=== PATIENT | female | born 1970 | race Caucasian/White ===

== ENCOUNTER 2019-01-09 17:34 | Emergency (ER) | payer OTHER ==
[2019-01-09 17:47] VITALS: BP 152/101; PULSE 79; RESP 20; TEMP 97.5
[2019-01-09] MEDS ORDERED: KETOROLAC 30 MG/ML 1 ML VIAL IM STA (18:12)
[2019-01-09] MEDS ORDERED: SULFAMETH-TMP DS STARTER PACK 2 TAB BTL PO STA (18:12)
[2019-01-09] MEDS ORDERED: LIDOCAINE 1% INJ 10MG/ML (20 ML MDV) SQ ONE (18:12)
--- NOTE | 2019-01-09 18:15 | ED ---
General Adult HPI - General Chief complaint: Skin/Abscess/Foreign Body Stated complaint: possible MRSA Time Seen by Provider: 01/09/19 18:07 Source: patient, RN notes reviewed Mode of arrival: ambulatory Limitations: no limitations - History of Present Illness Initial comments: 48-year-old female with a past medical history of MRSA presents to the emergency department for a chief complaint of swelling in the labia. Patient states that this has been ongoing for about a week. States that she is having swelling and pain in her right labia. Patient states that she has been taking Levaquin for about 4 days but it does not seem to be helping. Patient has not yet had this incised and drained. Denies fevers or chills.Patient has no other complaints at this time including shortness of breath, chest pain, abdominal pain, nausea or vomiting, headache, or visual changes. - Related Data Previous Rx's Medication Instructions Recorded Loratadine [Claritin] 10 mg PO DAILY PRN #15 tab 04/30/14 clonazePAM [KlonoPIN] 1 mg PO TID #45 tab 04/30/14 Acetaminophen with Codeine 1 each PO Q4H #20 tab 04/12/15 [Tylenol w/codeine #3] Ibuprofen [Motrin] 800 mg PO Q6HR PRN #20 tab 04/12/15 Cephalexin [Keflex] 500 mg PO Q6H #40 cap 01/09/19 Sulfamethox-Tmp 800-160Mg [Bactrim 1 tab PO Q12HR #20 tab 01/09/19 DS 800-160 mg] Allergies Allergy/AdvReac Type Severity Reaction Status Date / Time No Known Allergies Allergy Verified 01/09/19 17:46 Review of Systems ROS Statement: Those systems with pertinent positive or pertinent negative responses have been documented in the HPI. ROS Other: All systems not noted in ROS Statement are negative. Past Medical History Additional Past Medical History / Comment(s): "I don't know" History of Any Multi-Drug Resistant Organisms: MRSA Date of last positivie culture/infection: 2011 MDRO Source:: under her arm Past Surgical History: Section Additional Past Surgical History / Comment(s): x2 Past Anesthesia/Blood Transfusion Reactions: No Reported Reaction Past Psychological History: Anxiety, Bipolar, Depression, Schizoaffective Disorder Smoking Status: Current every day smoker Past Alcohol Use History: Occasional Past Drug Use History: None Reported General Exam Limitations: no limitations General appearance: alert, in no apparent distress Head exam: Present: atraumatic, normocephalic, normal inspection Eye exam: Present: normal appearance, PERRL, EOMI. Absent: scleral icterus, conjunctival injection, periorbital swelling ENT exam: Present: normal exam, mucous membranes moist Neck exam: Present: normal inspection, full ROM. Absent: tenderness, meningismus, lymphadenopathy Respiratory exam: Present: normal lung sounds bilaterally. Absent: respiratory distress, wheezes, rales, rhonchi, stridor Cardiovascular Exam: Present: regular rate, normal rhythm, normal heart sounds. Absent: systolic murmur, diastolic murmur, rubs, gallop, clicks External exam: Present: erythema (Right labia), swelling (Mild Right labia, serosanginous fluid expelled). Absent: normal external exam, lesions, lacerations Neurological exam: Present: alert Course Vital Signs 01/09/19 17:44 Temperature 97.5 F L Pulse Rate 79 Respiratory 20 Rate Blood Pressure 152/101 O2 Sat by Pulse 99 Oximetry Procedures - Incision & Drainage Consent Obtained: verbal consent Site: vulva/vagina Size (cm): 1 Anesthetic Used: lidocaine 1% Medical Decision Making - Medical Decision Making Right labia is erythematous and edematous. There is induration noted. There are small drainage points that expel yellow serosanguineous fluid. Dr. Jean also examined the patient. I did attempt a very small incision and drainage and did not receive any purulent material. Patient is currently on Levaquin and has a history of MRSA. This will be changed to Bactrim and Keflex. I did also do a viral swab for HSV. These are pending. Patient has seen her doctor about this and will follow up with them. However if she has worsening symptoms or fever she will return. Discussed following up on culture results as well. Disposition Clinical Impression: Labial abscess Disposition: HOME SELF-CARE Condition: Good Instructions (If sedation given, give patient instructions): Abscess (ED) Additional Instructions: Please take Bactrim and Keflex as directed. Discontinue Levaquin. Follow up on culture results. Please see your doctor in the next 1-2 days. If you are having worsening symptoms or develop fevers return to the emergency department. Prescriptions: Sulfamethox-Tmp 800-160Mg [Bactrim DS 800-160 mg] 1 tab PO Q12HR #20 tab Cephalexin [Keflex] 500 mg PO Q6H #40 cap Is patient prescribed a controlled substance at d/c from ED?: No Referrals: Omega Saavedra MD [Primary Care Provider] - 1-2 days Time of Disposition: 19:17
== END 2019-01-09 19:39 | disposition home or self-care (01) ==
LOC: EC 17:34
DX: N76.4 Abscess of vulva (principal); F17.200 Nicotine dependence, unspecified, uncomplicated; Z98.890 Other specified postprocedural states; Z86.14 Personal history of Methicillin resistant Staphylococcus aureus infection
CPT/HCPCS: 87529; 87070; 87205; 96372; 99283; 56405; J2001; J1885; 87077; 87186

== ENCOUNTER 2019-03-13 11:01 | Emergency (ER) | payer OTHER ==
[2019-03-13 11:08] VITALS: BP 153/90; PULSE 89; RESP 20; TEMP 97.3
--- NOTE | 2019-03-13 11:42 | ED ---
General Adult HPI - General Chief complaint: Skin/Abscess/Foreign Body Stated complaint: Poss MRSA Time Seen by Provider: 03/13/19 11:05 Source: patient, RN notes reviewed, old records reviewed Mode of arrival: ambulatory Limitations: no limitations - History of Present Illness Initial comments: This is a 48 her old female who presents emergency Department with a past medical history significant of MRSA. Patient comes in complaining that there is a area above her right knee on the distal thigh that is red and mildly swollen and she says there is a little bit of pus coming from it. Patient states it only started day or 2 ago. Patient also states she has a very small bump under her right arm in the armpit area and she wonders if this is MRSA. Patient states that just started today. Patient denies any fever chills per patient denies any known injury to those areas. Patient states she did use someone else's razor recently. Patient has no other complaints at this time. - Related Data Previous Rx's Medication Instructions Recorded Loratadine [Claritin] 10 mg PO DAILY PRN #15 tab 04/30/14 clonazePAM [KlonoPIN] 1 mg PO TID #45 tab 04/30/14 Acetaminophen with Codeine 1 each PO Q4H #20 tab 04/12/15 [Tylenol w/codeine #3] Ibuprofen [Motrin] 800 mg PO Q6HR PRN #20 tab 04/12/15 Cephalexin [Keflex] 500 mg PO Q6H #40 cap 01/09/19 Sulfamethox-Tmp 800-160Mg [Bactrim 1 tab PO Q12HR #20 tab 01/09/19 DS 800-160 mg] Sulfamethox-Tmp 800-160Mg [Bactrim 1 each PO Q12HR #20 tab 03/13/19 DS 800-160 mg] Allergies Allergy/AdvReac Type Severity Reaction Status Date / Time No Known Allergies Allergy Verified 03/13/19 11:08 Review of Systems ROS Statement: Those systems with pertinent positive or pertinent negative responses have been documented in the HPI. ROS Other: All systems not noted in ROS Statement are negative. Past Medical History Additional Past Medical History / Comment(s): "I don't know" History of Any Multi-Drug Resistant Organisms: MRSA Date of last positivie culture/infection: 01/09/19 MDRO Source:: [place] Past Surgical History: Section Additional Past Surgical History / Comment(s): x2 Past Anesthesia/Blood Transfusion Reactions: No Reported Reaction Past Psychological History: Anxiety, Bipolar, Depression, Schizoaffective Disorder Smoking Status: Current every day smoker Past Alcohol Use History: Occasional Past Drug Use History: None Reported General Exam - General Exam Comments Initial Comments: GENERAL Patient is well-developed and well-nourished. Patient is in mild distress. EYES Patient's pupils are equal and round. Extraocular motion is intact SKIN Unremarkable NEURO The patient is alert and oriented 3 PYSCH Patient has normal interpersonal interactions. MUSCULOSKELETAL patient has a abscess just above the right knee and distal thigh area there is some erythema measuring about 2 cm in diameter with a central opening which a little pus is draining from. Patient's right arm. Has a very small bump in the armpit that is tender is only mildly red does not appear fluctuant at all. Limitations: no limitations Course Vital Signs 03/13/19 11:06 Temperature 97.3 F L Pulse Rate 89 Respiratory 20 Rate Blood Pressure 153/90 O2 Sat by Pulse 100 Oximetry Procedures - Incision & Drainage Site: lower extremity Anesthetic Used: lidocaine 1% I&D Cleaning Method: Betadine Sterile Field Used?: Yes Scalpel Used: #11 Needle Aspiration Performed?: No Irrigation Performed?: No I&D Drainage Obtained: Pus Culture Obtained?: Yes Complications: pain Patient Tolerated Procedure: well Disposition Clinical Impression: Abscess of right leg Disposition: HOME SELF-CARE Condition: Good Instructions (If sedation given, give patient instructions): Abscess Incision and Drainage (ED), MRSA (Methicillin-Resistant Staphylococcus Aureus) (ED) Prescriptions: Sulfamethox-Tmp 800-160Mg [Bactrim DS 800-160 mg] 1 each PO Q12HR #20 tab Is patient prescribed a controlled substance at d/c from ED?: No Referrals: Dayday Saavedra MD [Primary Care Provider] - 1-2 days Time of Disposition: 11:42
== END 2019-03-13 12:00 | disposition home or self-care (01) ==
LOC: EC 11:01
DX: L02.415 Cutaneous abscess of right lower limb (principal); F17.200 Nicotine dependence, unspecified, uncomplicated
CPT/HCPCS: 10060; 87070; 87077; 87186; 87205; 99284

== ENCOUNTER 2019-03-17 12:21 | Emergency (ER) | payer OTHER ==
[2019-03-17 12:38] VITALS: TEMP 98.1
[2019-03-17] MEDS ORDERED: LIDOCAINE 1% INJ 10MG/ML (20 ML MDV) SQ ONE (13:21)
[2019-03-17] MEDS ORDERED: CLINDAMYCIN 600 MG in DEXTROSE 5% IN WATER 50 ML IVPB STA ×2 (13:29)
[2019-03-17 14:19] LABS: Basophils % (A) 1 %; Eosinophils % (A) 1 %; HGB 13.2 gm/dL (11.4-16.0); Lymphocytes # (A) 0.6 k/uL (1.0-4.8); Lymphocytes % (A) 17 %; MCH 27.8 pg (25.0-35.0); MCV 84.4 fL (80.0-100.0); Mean Platelet Volume 6.9; Monocytes # (A) 0.1 k/uL (0-1.0); Monocytes % (A) 2 %; Neutrophils # (A) 2.9 k/uL (1.3-7.7); Neutrophils % (A) 78 %; Platelet Count 306 k/uL (150-450); RBC 4.74 m/uL (3.80-5.40); RDW 13.8 % (11.5-15.5); WBC 3.7 k/uL (3.8-10.6)
[2019-03-17 14:26] LABS: ALT 28 U/L (4-34); AST 37 U/L (14-36); African American GFR (CKD) >90 (>60 ml/min/1.73 sqM); Albumin 4.7 g/dL (3.5-5.0); Alkaline Phosphatase 87 U/L (38-126); Anion Gap 10 mmol/L; Blood Urea Nitrogen 8 mg/dL (7-17); Calcium 9.9 mg/dL (8.4-10.2); Carbon Dioxide 24 mmol/L (22-30); Chloride 102 mmol/L (98-107); Glucose 122 mg/dL (74-99); Non-African American GFR(CKD) 86 (>60 ml/min/1.73 sqM); Potassium 4.4 mmol/L (3.5-5.1); Sodium 136 mmol/L (137-145); Total Bilirubin 0.3 mg/dL (0.2-1.3); Total Protein 7.9 g/dL (6.3-8.2)
[2019-03-17] MEDS ORDERED: MORPHINE SULFATE 4 MG/ML SYRINGE IVP PRN (14:34)
--- NOTE | 2019-03-17 14:58 | ED ---
Skin/Abscess/FB HPI - General Chief complaint: Skin/Abscess/Foreign Body Stated complaint: MRSA Time Seen by Provider: 03/17/19 13:03 Source: patient Mode of arrival: ambulatory Limitations: no limitations - History of Present Illness Initial comments: 48yo female presenting today for chief complaint of MRSA infection. Patient states she had a small red area on her right anterior knee that began approximately 7 days ago. She states she presented 4 days ago was started on Bactrim. Patient states at that time she had the area of her knee drained with a small amount of pus. She states she also had a small tender area that felt like a nodule in the right axilla. Patient denies any spontaneous drainage of the axilla redness. She states there is slightly increased redness surrounding the anterior knee lesion she denies any diffuse knee swelling or pain with range of motion at the right knee. She denies any fever or flulike symptoms. Patient denies any other complaints but was concerned that the redness was not going down. Patient states she has been taking her antibiotics as directed. Patient denies any other complaints upon arrival she appears well nontoxic - Related Data Home Medications Medication Instructions Recorded Confirmed HYDROcodone/APAP 5-325MG [[place] 1 tab PO TID PRN 03/17/19 03/17/19 5-325] Lacosamide [Vimpat] 200 mg PO BID 03/17/19 03/17/19 Sulfamethox-Tmp 800-160Mg [Bactrim 1 tab PO Q12H 03/17/19 03/17/19 DS 800-160 mg] Previous Rx's Medication Instructions Recorded Sulfamethox-Tmp 800-160Mg [Bactrim 2 tab PO Q12HR 10 Days #40 tab 03/17/19 DS 800-160 mg] Allergies Allergy/AdvReac Type Severity Reaction Status Date / Time No Known Allergies Allergy Verified 03/17/19 14:32 Review of Systems ROS Statement: Those systems with pertinent positive or pertinent negative responses have been documented in the HPI. ROS Other: All systems not noted in ROS Statement are negative. Past Medical History Additional Past Medical History / Comment(s): "I don't know" History of Any Multi-Drug Resistant Organisms: MRSA Date of last positivie culture/infection: 01/09/19 MDRO Source:: [place] Past Surgical History: Section, Joint Replacement Additional Past Surgical History / Comment(s): x2 Past Anesthesia/Blood Transfusion Reactions: No Reported Reaction Past Psychological History: Anxiety, Bipolar, Depression, Schizoaffective Disorder Smoking Status: Current every day smoker Past Alcohol Use History: Occasional Past Drug Use History: None Reported General Exam - General Exam Comments Initial Comments: General: The patient is awake and alert, in no distress, and does not appear acutely ill. Eye: Pupils are equal, round and reactive to light, extra-ocular movements are intact. No nystagmus. There is normal conjunctiva bilaterally. No signs of icterus. Cardiovascular: There is a regular rate and rhythm. No murmur, rub or gallop is appreciated. Respiratory: Lungs are clear to auscultation, respirations are non-labored, breath sounds are equal. No wheezes, stridor, rales, or rhonchi. Musculoskeletal: Normal ROM, no tenderness. Strength 5/5. Sensation intact. Pulses equal bilaterally 2+. Neurological: A&O x 3. CN II-XII intact, There are no obvious motor or sensory deficits. Coordination appears grossly intact. Speech is normal. Skin: Skin is warm and dry and no rashes.3cm x3cm circular area of erythema well demarcated, indurated, no spontaneous drainage. This is distal aspect of the anterior right thigh, just superior to knee joint. THere was a very small 1cmx1/2cm lesiosn in the right axilla that was fluctuant with no significant erythema. Psychiatric: Cooperative, appropriate mood & affect, normal judgment. Limitations: no limitations Course Vital Signs 03/17/19 03/17/19 03/17/19 12:35 13:38 14:00 Temperature 98.1 F Pulse Rate 102 H 93 78 Respiratory 18 20 Rate Blood Pressure 128/77 129/87 O2 Sat by Pulse 99 95 100 Oximetry 03/17/19 15:00 Temperature Pulse Rate 82 Respiratory 20 Rate Blood Pressure 125/80 O2 Sat by Pulse 100 Oximetry Procedures - Incision & Drainage Consent Obtained: verbal consent Indication: abscess Site: lower extremity (distal right thigh/just superior to knee ) Size (cm): 3 Anesthetic Used: lidocaine 1% Amount (mLs): 2 I&D Cleaning Method: Iodine Sterile Field Used?: No Scalpel Used: #11 Needle Aspiration Performed?: Yes (no pus) Irrigation Performed?: No I&D Drainage Obtained: Blood Culture Obtained?: No Patient Tolerated Procedure: well, no complications Medical Decision Making - Medical Decision Making 48yo female presenting today for chief complaint of no improvement of infection. Patient states she has slight increase in the redness surrounding the right knee lesion she states she was not told that this was MRSA. Patient states she is on Bactrim. Patient's previous cultures revealed methicillin-resistant staph aureus. However is found to be sensitive to Bactrim. Patient was provided IV clindamycin in the emergency department. Laboratory studies revealed a leukocytosis patient appears well nontoxic she is afebrile with no flulike symptoms. I attempted needle aspiration of the right anterior leg lesions, no purulent drainage, mostly induration. Dr. Hull who evaluated patient on 03/13 reevaluated patient there was minimal progression. Patient has needle aspiration with I&D performed on right axilla lesion with minimal expression however was present purulent drainage. At this time after discussing case with attending he recommends doubling the dose of Bactrim and having patient follow up with prim abraham Provider with strict return parameters. I discussed outline the area of redness for monitoring monitoring for fevers as well as flulike symptoms patient verbalizes understanding and was discharged appearing well - Lab Data Result diagrams: 03/17/19 14:00 03/17/19 14:00 Lab Results 03/17/19 03/17/19 Range/Units 14:00 14:00 WBC 3.7 L (3.8-10.6) k/uL RBC 4.74 (3.80-5.40) m/uL Hgb 13.2 (11.4-16.0) gm/dL Hct 40.0 (34.0-46.0) % MCV 84.4 (80.0-100.0) fL MCH 27.8 (25.0-35.0) pg MCHC 33.0 (31.0-37.0) g/dL RDW 13.8 (11.5-15.5) % Plt Count 306 (150-450) k/uL Neutrophils % 78 % Lymphocytes % 17 % Monocytes % 2 % Eosinophils % 1 % Basophils % 1 % Neutrophils # 2.9 (1.3-7.7) k/uL Lymphocytes # 0.6 L (1.0-4.8) k/uL Monocytes # 0.1 (0-1.0) k/uL Eosinophils # 0.0 (0-0.7) k/uL Basophils # 0.0 (0-0.2) k/uL Sodium 136 L (137-145) mmol/L Potassium 4.4 (3.5-5.1) mmol/L Chloride 102 (98-107) mmol/L Carbon Dioxide 24 (22-30) mmol/L Anion Gap 10 mmol/L BUN 8 (7-17) mg/dL Creatinine 0.82 (0.52-1.04) mg/dL Est GFR (CKD-EPI)AfAm >90 (>60 ml/min/1.73 sqM) Est GFR (CKD-EPI)NonAf 86 (>60 ml/min/1.73 sqM) Glucose 122 H (74-99) mg/dL Calcium 9.9 (8.4-10.2) mg/dL Total Bilirubin 0.3 (0.2-1.3) mg/dL AST 37 H (14-36) U/L ALT 28 (4-34) U/L Alkaline Phosphatase 87 (38-126) U/L Total Protein 7.9 (6.3-8.2) g/dL Albumin 4.7 (3.5-5.0) g/dL Disposition Clinical Impression: MRSA (methicillin resistant staph aureus) culture positive, Cellulitis of right knee, Abscess of right axilla Disposition: HOME SELF-CARE Condition: Good Instructions (If sedation given, give patient instructions): MRSA (Methicillin- Resistant Staphylococcus Aureus) (ED), Abscess Incision and Drainage (ED) Additional Instructions: Please use medication as discussed. Please follow-up with family doctor in the next 2 days, monitor outlined area of redness daily, watch for fevers, flu like symptoms. DO not take previous infection. Please return to emergency room if the symptoms increase or worsen or for any other concerns. Prescriptions: Sulfamethox-Tmp 800-160Mg [Bactrim DS 800-160 mg] 2 tab PO Q12HR 10 Days #40 tab Is patient prescribed a controlled substance at d/c from ED?: No Referrals: Dayday Saavedra MD [Primary Care Provider] - 1-2 days Time of Disposition: 14:58
[2019-03-17 15:04] VITALS: BP 125/80; PULSE 82; RESP 20
== END 2019-03-17 15:11 | disposition home or self-care (01) ==
LOC: EC 12:21
DX: L03.115 Cellulitis of right lower limb (principal); L02.411 Cutaneous abscess of right axilla; Z22.322 Carrier or suspected carrier of Methicillin resistant Staphylococcus aureus; F17.200 Nicotine dependence, unspecified, uncomplicated; Z79.899 Other long term (current) drug therapy
CPT/HCPCS: 36415; 80053; 85025; 99283; 10160; 96365; 96375; J2270; J2001

== ENCOUNTER 2019-04-05 12:58 | Emergency (ER) | payer OTHER ==
[2019-04-05 13:18] VITALS: RESP 18
[2019-04-05] MEDS ORDERED: KETOROLAC 30 MG/ML 1 ML VIAL IVP STA (13:45)
--- NOTE | 2019-04-05 13:47 | ED ---
General Adult HPI - General Chief complaint: Back Pain/Injury Stated complaint: Back/side pain Time Seen by Provider: 04/05/19 13:30 Source: patient, RN notes reviewed, old records reviewed Limitations: no limitations - History of Present Illness Initial comments: [age]-year-old presenting with increased pain in her thoracic spine. She had recent procedure done by her neurologist which was performed in the office. Uncertain exactly what this procedure was but she has had increased pain and swelling at the site of the procedure as well as pain radiating to the front side of her abdomen. She denies fever or chills. She has been taking oxycodone with minimal relief. She denies any new injury. She's had some nausea and vomiting which she attributes to the severe pain. The procedure was performed 3 days prior. No periumbilical pain, no central chest pain. No pain or swelling to the lower legs. No numbness or paresthesias. - Related Data Home Medications Medication Instructions Recorded Confirmed HYDROcodone/APAP 5-325MG [[place] 1 tab PO TID PRN 03/17/19 03/17/19 5-325] Lacosamide [Vimpat] 200 mg PO BID 03/17/19 03/17/19 Sulfamethox-Tmp 800-160Mg [Bactrim 1 tab PO Q12H 03/17/19 03/17/19 DS 800-160 mg] Previous Rx's Medication Instructions Recorded Sulfamethox-Tmp 800-160Mg [Bactrim 2 tab PO Q12HR 10 Days #40 tab 03/17/19 DS 800-160 mg] Allergies Allergy/AdvReac Type Severity Reaction Status Date / Time No Known Allergies Allergy Verified 03/17/19 14:32 Review of Systems ROS Statement: Those systems with pertinent positive or pertinent negative responses have been documented in the HPI. ROS Other: All systems not noted in ROS Statement are negative. Past Medical History Additional Past Medical History / Comment(s): "I don't know" History of Any Multi-Drug Resistant Organisms: MRSA Date of last positivie culture/infection: 03/13/19 MDRO Source:: Left Leg Past Surgical History: Section, Joint Replacement Additional Past Surgical History / Comment(s): x2, back surgery. Past Anesthesia/Blood Transfusion Reactions: No Reported Reaction Past Psychological History: Anxiety, Bipolar, Depression, Schizoaffective Disorder Smoking Status: Current every day smoker Past Alcohol Use History: Occasional Past Drug Use History: None Reported General Exam Limitations: no limitations General appearance: alert, in no apparent distress Head exam: Present: atraumatic, normocephalic Eye exam: Present: normal appearance, PERRL Neck exam: Present: normal inspection. Absent: tenderness, meningismus Respiratory exam: Present: normal lung sounds bilaterally. Absent: respiratory distress, wheezes Cardiovascular Exam: Present: regular rate, normal rhythm GI/Abdominal exam: Present: soft. Absent: distended, tenderness, guarding, rebound Extremities exam: Present: normal inspection, normal capillary refill. Absent: pedal edema, calf tenderness Back exam: Present: vertebral tenderness (Patient has multiple puncture sites in the thoracic spinal region, minimal erythema, no induration, no fluctuance) Psychiatric exam: Present: normal affect, normal mood Skin exam: Present: warm, dry. Absent: cyanosis, diaphoretic Course Vital Signs 04/05/19 13:15 Temperature 98.2 F Pulse Rate 93 Respiratory 18 Rate Blood Pressure 146/99 O2 Sat by Pulse 100 Oximetry Medical Decision Making - Medical Decision Making 48 yo female presenting with back pain status post arthroplasty of the thoracic spine which was performed by her neurologist 3 days prior to evaluation. She has puncture sites in the mid thoracic spine with no external signs of infection. She has a normal CBC, normal CMP, negative CRP. CT was performed negative for abscess, does show postprocedural changes. This was reviewed with radiologist. I also discussed case with who is the patient's neurologist who performed this procedure, believes that this is postoperative pain and is expected. She had been prescribed Toradol but had not filled this medication. She will have this medication filled and take this in addition to her Percocet as pre scribed. She will follow-up with her neurologist. - Lab Data Result diagrams: 04/05/19 14:00 04/05/19 14:00 Lab Results 04/05/19 04/05/19 04/05/19 Range/Units 14:00 14:00 14:00 WBC 7.1 (3.8-10.6) k/uL RBC 4.64 (3.80-5.40) m/uL Hgb 13.0 (11.4-16.0) gm/dL Hct 39.9 (34.0-46.0) % MCV 86.1 (80.0-100.0) fL MCH 28.0 (25.0-35.0) pg MCHC 32.5 (31.0-37.0) g/dL RDW 14.4 (11.5-15.5) % Plt Count 327 (150-450) k/uL Neutrophils % 62 % Lymphocytes % 28 % Monocytes % 6 % Eosinophils % 2 % Basophils % 0 % Neutrophils # 4.4 (1.3-7.7) k/uL Lymphocytes # 2.0 (1.0-4.8) k/uL Monocytes # 0.5 (0-1.0) k/uL Eosinophils # 0.1 (0-0.7) k/uL Basophils # 0.0 (0-0.2) k/uL Sodium 135 L (137-145) mmol/L Potassium 4.3 (3.5-5.1) mmol/L Chloride 101 (98-107) mmol/L Carbon Dioxide 27 (22-30) mmol/L Anion Gap 7 mmol/L BUN 9 (7-17) mg/dL Creatinine 0.63 (0.52-1.04) mg/dL Est GFR (CKD-EPI)AfAm >90 (>60 ml/min/1.73 sqM) Est GFR (CKD-EPI)NonAf >90 (>60 ml/min/1.73 sqM) Glucose 99 (74-99) mg/dL Plasma Lactic Acid Grzegorz 0.9 (0.7-2.0) mmol/L Calcium 9.6 (8.4-10.2) mg/dL Total Bilirubin 0.6 (0.2-1.3) mg/dL AST 28 (14-36) U/L ALT 22 (4-34) U/L Alkaline Phosphatase 58 (38-126) U/L C-Reactive Protein <5.0 (<10.0) mg/L Total Protein 7.4 (6.3-8.2) g/dL Albumin 4.5 (3.5-5.0) g/dL Disposition Clinical Impression: Back pain, History of kyphoplasty Disposition: HOME SELF-CARE Condition: Good Instructions (If sedation given, give patient instructions): Kyphoplasty (DC) Is patient prescribed a controlled substance at d/c from ED?: No Referrals: Dayday Saavedra MD [Primary Care Provider] - 1-2 days Mikki Oliva MD [Medical Doctor] - 1-2 days Time of Disposition: 15:16
[2019-04-05 14:24] LABS: Basophils % (A) 0 %; Eosinophils # (A) 0.1 k/uL (0-0.7); Eosinophils % (A) 2 %; HCT 39.9 % (34.0-46.0); Lymphocytes % (A) 28 %; MCHC 32.5 g/dL (31.0-37.0); MCV 86.1 fL (80.0-100.0); Mean Platelet Volume 6.8; Monocytes # (A) 0.5 k/uL (0-1.0); Monocytes % (A) 6 %; Neutrophils # (A) 4.4 k/uL (1.3-7.7); Neutrophils % (A) 62 %; Platelet Count 327 k/uL (150-450); RBC 4.64 m/uL (3.80-5.40); RDW 14.4 % (11.5-15.5); WBC 7.1 k/uL (3.8-10.6)
--- NOTE | 2019-04-05 14:39 | CT ---
EXAMINATION TYPE: CT thoracic spine wo con DATE OF EXAM: 04/05/2019 COMPARISON: None HISTORY: 48-year-old female increased back pain following thoracic surgery TECHNIQUE: Contiguous axial scanning of the thoracic spine without IV contrast. Coronal and sagittal reconstructions performed. CT DLP: 851 mGycm Automated exposure control for dose reduction was used. FINDINGS: There are vertebroplasty changes involving T8, T9, T10, T11, and T12 vertebral bodies. Anterior wedgi ng is present greatest of T9 and T11 vertebral bodies resulting in kyphotic deformity lower thoracic spine. Mild methylmethacrylate vessel embolization is present in the prevertebral regions opposite T9, T10, and T12. There is mild retropulsion at the T11 and T12 levels causing mild spinal canal stenosis here. On the left, changes of the abdomen moderate neuroforaminal narrowing at T10-T11 and mild at T11-T12 and T9-T10. On the right, changes result in moderate foraminal narrowing at T9-T10 and T10-T11, mild at T8-T9. No additional vertebral body fractures identified. Alignment is maintained. IMPRESSION: 1. VERTEBROPLASTY CHANGES FROM T8 THROUGH T12 LEVELS. ANTERIOR WEDGING OF T9 AND T11 RESULTS IN KYPHO SIS ALONG THE LOWER THORACIC SPINE. 2. MILD RETROPULSION AT THE T11 AND T12 LEVELS CAUSING MILD SPINAL CANAL STENOSES HERE. NO HIGH-GRADE CANAL COMPROMISE IS IDENTIFIED. 3. VARIABLE MILD AND MODERATE NEUROFORAMINAL STENOSES AT THE FRACTURED LEVELS ABOVE. 4. INCIDENTAL, MILD METHYLMETHACRYLATE VESSEL EMBOLIZATION TO THE PREVERTEBRAL REGIONS OPPOSITE T9, T 10, AND T12.
[2019-04-05 14:44] LABS: ALT 22 U/L (4-34); AST 28 U/L (14-36); African American GFR (CKD) >90 (>60 ml/min/1.73 sqM); Albumin 4.5 g/dL (3.5-5.0); Alkaline Phosphatase 58 U/L (38-126); Anion Gap 7 mmol/L; Blood Urea Nitrogen 9 mg/dL (7-17); C Reactive Protein <5.0 mg/L (<10.0); Calcium 9.6 mg/dL (8.4-10.2); Carbon Dioxide 27 mmol/L (22-30); Chloride 101 mmol/L (98-107); Glucose 99 mg/dL (74-99); Non-African American GFR(CKD) >90 (>60 ml/min/1.73 sqM); Potassium 4.3 mmol/L (3.5-5.1); Sodium 135 mmol/L (137-145); Total Bilirubin 0.6 mg/dL (0.2-1.3); Total Protein 7.4 g/dL (6.3-8.2)
[2019-04-05 15:33] VITALS: BP 132/74; PULSE 78; TEMP 98.3
== END 2019-04-05 15:30 | disposition home or self-care (01) ==
LOC: EC 12:58
DX: M54.6 Pain in thoracic spine (principal); G89.18 Other acute postprocedural pain; L76.82 Other postprocedural complications of skin and subcutaneous tissue; R11.2 Nausea with vomiting, unspecified; R10.9 Unspecified abdominal pain; F17.200 Nicotine dependence, unspecified, uncomplicated; Z86.14 Personal history of Methicillin resistant Staphylococcus aureus infection
CPT/HCPCS: 99284; 96374; 36415; 80053; 83605; 85025; 86140; 87040; 72128; J1885

== ENCOUNTER → 2019-04-10 | Outpatient (CLI) | payer OTHER ==
[2019-04-10 11:50] LABS: Basophils % (A) 1 %; Eosinophils # (A) 0.1 k/uL (0-0.7); Eosinophils % (A) 1 %; HCT 36.2 % (34.0-46.0); HGB 12.2 gm/dL (11.4-16.0); Lymphocytes # (A) 1.8 k/uL (1.0-4.8); Lymphocytes % (A) 31 %; MCH 29.9 pg (25.0-35.0); MCHC 33.7 g/dL (31.0-37.0); MCV 88.7 fL (80.0-100.0); Mean Platelet Volume 7.4; Monocytes # (A) 0.3 k/uL (0-1.0); Monocytes % (A) 4 %; Neutrophils # (A) 3.5 k/uL (1.3-7.7); Neutrophils % (A) 60 %; Platelet Count 257 k/uL (150-450); RBC 4.08 m/uL (3.80-5.40); RDW 14.4 % (11.5-15.5); WBC 5.9 k/uL (3.8-10.6)
[2019-04-10 16:20] LABS: % Iron Saturation 12.39 (12.00-45.00); Calcium 9.2 mg/dL (8.7-10.3)
[2019-04-10 16:28] LABS: Ferritin 83.8 ng/mL (10.0-291.0); T4, Free (Free Thyroxine) 1.2 ng/dL (0.80-1.80)
[2019-04-10 16:59] LABS: Folate, Serum 12.8 ng/mL
[2019-04-12 10:12] LABS: Vit B1(Thiamine) 74 ug/L (38-122)
== END | disposition home or self-care (01) ==
LOC: LABWHC1 11:22
PROVIDERS: ATTEND Psychiatry & Neurology Pain Medicine
DX: R53.83 Other fatigue (principal)
CPT/HCPCS: 36415; 82306; 82310; 82607; 82668; 82728; 82746; 83540; 83550; 84207; 84425; 84439; 84443; 84466; 84481; 84591; 85025; 85045

== ENCOUNTER 2019-07-23 18:18 | Inpatient (IN) | payer MEDICAID, OTHER ==
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
--- NOTE | 2019-07-23 19:15 | XR ---
EXAMINATION TYPE: XR finger LT DATE OF EXAM: 07/23/2019 CLINICAL HISTORY: pain TECHNIQUE: 3 views of the first digit are submitted. COMPARISON: None FINDINGS: No displaced fracture is seen with certainty. Joint spaces are well-preserved. Correlate for soft tissue injury. IMPRESSION: No acute displaced fracture or dislocation.
[2019-07-23 20:38] LABS: Amphetamine Screen,Urine Not Detected (NotDetected); Barbiturate Screen,Urine Not Detected (NotDetected); Benzodiazepines Screen,Urine Not Detected (NotDetected); Cocaine Screen,Urine Not Detected (NotDetected); Methadone Screen, Urine Not Detected (NotDetected); Opiate Screen,Urine Not Detected (NotDetected); Oxycodone Screen, Urine Not Detected (NotDetected); Phencyclidine Screen,Urine Not Detected (NotDetected); Tricyclic Antidepressant,Urine Not Detected (NotDetected); Urn Cannabinoid Scrn Not Detected (NotDetected)
[2019-07-23] MEDS ORDERED: LORazepam 1 MG TAB PO STA (23:25)
[2019-07-24] MEDS ORDERED: MAGNESIUM HYDROXIDE 2,400 MG/10 ML CUP PO PRN (00:54)
[2019-07-24] MEDS ORDERED: MAG HYDROX/AL HYDROX/SIMETH 30 ML CUP PO PRN (00:54)
[2019-07-24] MEDS ORDERED: LORazepam 1 MG TAB PO PRN (00:54)
[2019-07-24 06:56] LABS: Basophils # (A) 0.1 k/uL (0-0.2); Basophils % (A) 1 %; Eosinophils # (A) 0.1 k/uL (0-0.7); Eosinophils % (A) 2 %; HCT 42.5 % (34.0-46.0); HGB 14.3 gm/dL (11.4-16.0); Lymphocytes # (A) 2.4 k/uL (1.0-4.8); Lymphocytes % (A) 37 %; MCHC 33.6 g/dL (31.0-37.0); MCV 92.5 fL (80.0-100.0); Mean Platelet Volume 7.6; Monocytes # (A) 0.4 k/uL (0-1.0); Monocytes % (A) 6 %; Neutrophils # (A) 3.3 k/uL (1.3-7.7); Neutrophils % (A) 51 %; Platelet Count 262 k/uL (150-450); RBC 4.59 m/uL (3.80-5.40); RDW 12.9 % (11.5-15.5); WBC 6.5 k/uL (3.8-10.6)
[2019-07-24 07:04] LABS: ALT 13 U/L (4-34); AST 18 U/L (14-36); African American GFR (CKD) >90 (>60 ml/min/1.73 sqM); Alkaline Phosphatase 67 U/L (38-126); Anion Gap 5 mmol/L; Blood Urea Nitrogen 10 mg/dL (7-17); Calcium 9.5 mg/dL (8.4-10.2); Carbon Dioxide 25 mmol/L (22-30); Chloride 107 mmol/L (98-107); Cholesterol 234 mg/dL (<200); Glucose 94 mg/dL (74-99); HDL Cholesterol 46 mg/dL (40-60); Non-African American GFR(CKD) >90 (>60 ml/min/1.73 sqM); Sodium 137 mmol/L (137-145); Total Bilirubin 0.8 mg/dL (0.2-1.3); Total Protein 6.6 g/dL (6.3-8.2)
[2019-07-24 07:09] LABS: LDL Cholesterol,Calculated 170 mg/dL (0-99); Triglycerides 90 mg/dL (<150)
--- NOTE | 2019-07-24 12:25 | P.HP ---
Psychiatric H&P - . H&P Date: 07/24/19 History & Physical: Allergies Allergy/AdvReac Type Severity Reaction Status Date / Time No Known Allergies Allergy Verified 07/23/19 20:44 Vital Signs Temp 97.4 F L 07/24/19 01:27 Pulse 97 07/24/19 01:27 Resp 16 07/24/19 01:27 BP 127/116 07/24/19 01:27 Pulse Ox 97 07/23/19 18:21 Intake & Output 07/23/19 07/24/19 07/24/19 18:59 06:59 18:59 Weight 65.771 kg Laboratory Last Values WBC 6.5 k/uL (3.8-10.6) 07/24/19 06:36 RBC 4.59 m/uL (3.80-5.40) 07/24/19 06:36 Hgb 14.3 gm/dL (11.4-16.0) 07/24/19 06:36 Hct 42.5 % (34.0-46.0) 07/24/19 06:36 MCV 92.5 fL (80.0-100.0) 07/24/19 06:36 MCH 31.0 pg (25.0-35.0) 07/24/19 06:36 MCHC 33.6 g/dL (31.0-37.0) 07/24/19 06:36 RDW 12.9 % (11.5-15.5) 07/24/19 06:36 Plt Count 262 k/uL (150-450) 07/24/19 06:36 Neutrophils % 51 % 07/24/19 06:36 Lymphocytes % 37 % 07/24/19 06:36 Monocytes % 6 % 07/24/19 06:36 Eosinophils % 2 % 07/24/19 06:36 Basophils % 1 % 07/24/19 06:36 Neutrophils # 3.3 k/uL (1.3-7.7) 07/24/19 06:36 Lymphocytes # 2.4 k/uL (1.0-4.8) 07/24/19 06:36 Monocytes # 0.4 k/uL (0-1.0) 07/24/19 06:36 Eosinophils # 0.1 k/uL (0-0.7) 07/24/19 06:36 Basophils # 0.1 k/uL (0-0.2) 07/24/19 06:36 Sodium 137 mmol/L (137-145) 07/24/19 06:36 Potassium 4.0 mmol/L (3.5-5.1) 07/24/19 06:36 Chloride 107 mmol/L (98-107) 07/24/19 06:36 Carbon Dioxide 25 mmol/L (22-30) 07/24/19 06:36 Anion Gap 5 mmol/L 07/24/19 06:36 BUN 10 mg/dL (7-17) 07/24/19 06:36 Creatinine 0.70 mg/dL (0.52-1.04) 07/24/19 06:36 Est GFR (CKD-EPI)AfAm >90 (>60 ml/min/1.73 sqM) 07/24/19 06:36 Est GFR (CKD-EPI)NonAf >90 (>60 ml/min/1.73 sqM) 07/24/19 06:36 Glucose 94 mg/dL (74-99) 07/24/19 06:36 Calcium 9.5 mg/dL (8.4-10.2) 07/24/19 06:36 Total Bilirubin 0.8 mg/dL (0.2-1.3) 07/24/19 06:36 AST 18 U/L (14-36) 07/24/19 06:36 ALT 13 U/L (4-34) 07/24/19 06:36 Alkaline Phosphatase 67 U/L (38-126) 07/24/19 06:36 Total Protein 6.6 g/dL (6.3-8.2) 07/24/19 06:36 Albumin 4.0 g/dL (3.5-5.0) 07/24/19 06:36 Triglycerides 90 mg/dL (<150) 07/24/19 06:36 Cholesterol 234 mg/dL (<200) H 07/24/19 06:36 LDL Cholesterol, Calc 170 mg/dL (0-99) H 07/24/19 06:36 HDL Cholesterol 46 mg/dL (40-60) 07/24/19 06:36 TSH 1.060 mIU/L (0.465-4.680) 07/24/19 06:36 Urine Opiates Screen Not Detected (NotDetected) 07/23/19 20:18 Ur Oxycodone Screen Not Detected (NotDetected) 07/23/19 20:18 Urine Methadone Screen Not Detected (NotDetected) 07/23/19 20:18 Ur Propoxyphene Screen Not Detected (NotDetected) 07/23/19 20:18 Ur Barbiturates Screen Not Detected (NotDetected) 07/23/19 20:18 U Tricyclic Antidepress Not Detected (NotDetected) 07/23/19 20:18 Ur Phencyclidine Scrn Not Detected (NotDetected) 07/23/19 20:18 Ur Amphetamines Screen Not Detected (NotDetected) 07/23/19 20:18 U Methamphetamines Scrn Not Detected (NotDetected) 07/23/19 20:18 U Benzodiazepines Scrn Not Detected (NotDetected) 07/23/19 20:18 Urine Cocaine Screen Not Detected (NotDetected) 07/23/19 20:18 U Marijuana (THC) Screen Not Detected (NotDetected) 07/23/19 20:18 07/24/19 10:40 IDENTIFYING DATA: Patient is a 48-year-old female who is and lives with her father and has 2 boys. HPI: Patient presented to the hospital and was evaluated in the ER. Patient was brought in by father who petitioned her stating "loss of memory acting and laughing for no reason" and also "stares at the son". The petition also states that patient "walks up to the TV and stares" and also has been refusing to take her medications. As per ER report patient admitted to noncompliance with her meds and also appeared to be talking to someone in the room when nobody was there and spoke about "the devil is in her head and telling her to harm herself" and appeared to be distracted during the interview in the ER. Patient's UDS was negative. Patient was seen laying down in her bed today and was initially bizarre and appeared to be confused and resistant to speak with scenario writer and needed significant direction. Patient did appear to be confused and was a poor historian. She claims that she has been not taking her medications and perseverated on this several times are at the interview. She complained of a headache. She followed some commands and had difficulty concentrating during the interview. She was slow to respond and was vague with poor insight. She states that she slept poorly and when asked about her mood she states it is "lonely". Patient denies any suicidal or homicidal ideations intent or plan. At this time patient denies any auditory or visual hallucinations. Patient admits to using cigarettes daily. UDS was negative. PAST PSYCHIATRIC HISTORY: Patient states that she has a history of schizoaffective disorder her last admission to the mental health unit was in 2014. Patient was previously on Rexulti, Effexor, BuSpar, Klonopin and Vistaril. PMH: Seizure disorder and asthma ALLERGIES: as per EMR CHEMICAL DEPENDENCY HISTORY: as per HPI FAMILY PSYCHIATRIC/SUBSTANCE USE HISTORY: denies SOCIAL HISTORY: Patient was born and raised in [place] and moved to [place]. She currently lives with her father is divorce has to boys. 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 She states that she did some college. She denied any legal problems at this time. MENTAL STATUS EXAM: General Appearance: Patient appears to be stated age is alert, confused and bizarre. Difficult to redirect at times. Patient appears to have poor hygiene and grooming. Behavior: Patient is seated without any agitated behavior. Bizarre and confused. Speech: Patient's speech is fluent and nonpressured. Slow to respond. Mood/Affect: Patient reports their mood is "lonely", affect is congruent and constricted. Suicidality/Homicidality: Patient denies having any homicidal ideation intent or plan. Denies any suicidal ideations intent or plan Perceptions: Patient denies any visual hallucinations and denies any auditory hallucinations Though content/process: Poverty of content, vague. Does not endorse any paranoia or delusions. Preoccupied with not taking her medications. Memory and concentration: AOX2, does not know today's date, poor memory recall, poor fund of knowledge and poor abstraction. Cannot spell "WORLD" backwards Judgment and insight: poor STRENGTHS/WEAKNESSES: strength is that patient is resilient. Weakness is that patient has poor judgment INTELLECT: average IMPRESSIONS: Psychosis unspecified, rule out secondary to a general medical condition versus schizoaffective disorder Nicotine dependence PLAN: -Patient is admitted under involuntary status to MHU for stabilization of psychiatric symptoms and safety. A second certification was completed and along with petition will be filed for court. Patient refused to sign medication consent form and was placed in chart. -Medications : Will start patient on paliperidone by mouth 3 mg daily for psychosis. Due to patient's noncompliance and poor insight, we'll likely transition patient on 2 Invega Sustenna prior to discharge. Trazodone 25 mg daily at bedtime for insomnia/mood. -Ordered computed tomography scan of the brain due to acute psychosis and confusion/altered mental status. -Will check B12, folate and syphilis labs. -Ativan and Geodon PRN for agitation/aggression -Patient was informed of the risks, benefits and side effects of the medication and patient verbally consented to taking the medications. Patient signed med consent form and was placed in chart. -Internal Medicine consult to perform medical evaluation and physical. Will evaluate to see if patient needs to be restarted on her antiepileptic medications and also if a neurology consult to is warranted. -NRT - nicotine patch -SW on board for discharge planning. Encourage patient to participate in groups to work on coping skills. We'll file for court and await deferral and court date. 07/24/19 12:16 07/24/19 12:22
[2019-07-24] MEDS: NICOTINE 14MG/24HR PATCH TRANSDERM SCH (12:35)
[2019-07-24] MEDS: PALIPERIDONE 3 MG TAB.ER.24 PO SCH (12:37)
[2019-07-24 14:19] LABS: Hemoglobin A1C 5.4 % (4.0-6.0)
[2019-07-24] MEDS ORDERED: OLANZapine 5 MG TAB PO ONE (14:30)
--- NOTE | 2019-07-24 16:06 | CT ---
EXAMINATION TYPE: CT brain wo/w con DATE OF EXAM: 07/24/2019 COMPARISON: 01/26/2012 HISTORY: altered mental status CT DLP: 2100.4mGycm CONTRAST: CT scan of the head is performed without and with IV Contrast, patient injected with 100 mL of Isovue 300. Unenhanced followed by contrast enhanced CT of the brain is submitted for evaluation. The ventricles are midline. There is no evidence for intracranial hemorrhage or extra-axial collection. No mass e ffects are identified. Visualized bony calvarium is intact. Contrast is administered and no enhanci ng lesions are detected. No pathologic enhancement is identified. If symptoms persist consider MRI. IMPRESSION: No significant abnormality appreciated at this time.
[2019-07-24 17:42] LABS: Folate, Serum 19.7 ng/mL
[2019-07-24] MEDS: traZODone HCL 50 MG TAB PO SCH (22:24)
--- NOTE | 2019-07-24 23:28 | P.HPIM ---
History of Present Illness H&P Date: 07/24/19 Chief Complaint: Psychotic features Consultation: Admitted to see the patient earlier today. Came back later to see the patient. Patient received a sedative. Unable to answer questions. Lethargic-arousable, but doses off easily. Chart was reviewed. We'll return tomorrow for formal evaluation again. Past Medical History Past Medical History: Unable to Obtain Additional Past Medical History / Comment(s): "I don't know" History of Any Multi-Drug Resistant Organisms: MRSA Date of last positivie culture/infection: 03/13/19 MDRO Source:: Left Leg Past Surgical History: Unable to Obtain, Section, Joint Replacement Additional Past Surgical History / Comment(s): x2, back surgery. Past Anesthesia/Blood Transfusion Reactions: No Reported Reaction Past Psychological History: Anxiety, Bipolar, Depression, Schizoaffective Disorder Smoking Status: Current every day smoker Past Alcohol Use History: Occasional Past Drug Use History: None Reported Medications and Allergies Home Medications Medication Instructions Recorded Confirmed Type Lacosamide [Vimpat] 200 mg PO BID 03/17/19 07/23/19 History Benztropine Mesylate [Cogentin] 1 mg PO TID 07/23/19 07/23/19 History Brexpiprazole [Rexulti] 2 mg PO HS 07/23/19 07/23/19 History Pregabalin [Lyrica] 75 mg PO BID 07/23/19 07/23/19 History Venlafaxine HCl [Effexor] 100 mg PO TID 07/23/19 07/23/19 History busPIRone HCL [Buspar] 30 mg PO BID 07/23/19 07/23/19 History clonazePAM [KlonoPIN] 1 mg PO BID 07/23/19 07/23/19 History hydrOXYzine HCL [Atarax] 50 mg PO HS 07/23/19 07/23/19 History Allergies Allergy/AdvReac Type Severity Reaction Status Date / Time No Known Allergies Allergy Verified 07/23/19 20:44 Physical Exam Vitals: Vital Signs Temp Pulse Pulse Resp BP BP Pulse Ox 07/24/19 01:27 97.4 F L 97 16 127/116 07/23/19 18:21 98.5 F 107 H 18 187/127 97 Intake and Output 07/23/19 07/24/19 07/24/19 22:59 06:59 14:59 Other: Weight 65.771 kg Results CBC & Chem 7: 07/24/19 06:36 07/24/19 06:36 Labs: Abnormal Lab Results - Last 24 Hours (Table) 07/24/19 Range/Units 06:36 Cholesterol 234 H (<200) mg/dL LDL Cholesterol, Calc 170 H (0-99) mg/dL
[2019-07-25] MEDS: ACETAMINOPHEN TAB 325 MG TAB PO PRN ×2 (09:12→14:33)
[2019-07-25] MEDS: PALIPERIDONE 3 MG TAB.ER.24 PO SCH (09:12)
[2019-07-25] MEDS: NICOTINE 14MG/24HR PATCH TRANSDERM SCH (09:12)
--- NOTE | 2019-07-25 09:41 | P.PN ---
Progress Note - Text Progress Note Date: 07/25/19 Interval History: Patient was seen wandering the hallways and was directable and agreeable to sp raymond with sba underwriter in the office. Patient appeared to be less confused today and more appropriate during interview. Patient's response time to questions improved mildly. She continues to not know the date today and believes that it is "early June". She states that her mood has been getting better and denies any depression at this time. She claims that she has been going to some groups and has been taking her medications. She states that she is able to sleep well last night. She did claim that she "speaks to God" regularly however states that "it's not just through prayers". At this time patient denies any suicidal or homical ideations, intent or plan. Patient denies any auditory, visual hallucinations and denies any paranoia or delusions. Patient denies any side effects from the medications and has been compliant with meds. Mental Status Exam: General Appearance: Patient appears to be stated age is alert, less confused today and more appropriate. Patient appears to have improving hygiene and grooming. Behavior: Patient is seated without any agitated behavior. Bizarre and confused. Speech: Patient's speech is fluent and nonpressured. Slow to respond, mildly improving. Mood/Affect: Patient reports their mood is "ok", affect is congruent and constricted. Suicidality/Homicidality: Patient denies having any homicidal ideation intent or plan. Denies any suicidal ideations intent or plan Perceptions: Patient denies any visual hallucinations and denies any auditory hallucinations Though content/process: Poverty of content, vague. More logical and goal oriented today. Memory and concentration: AOX2, believes that it is "early June 2019" Judgment and insight: poor, mildly improving Assessment Psychosis unspecified, rule out secondary to a general medical condition versus schizoaffective disorder Nicotine dependence Plan: -Patient continues to meet criteria for inpatient psychiatric admission for symptom stabilization and safety. Patient has not signed adult voluntary form or medication consent and was placed in patient's chart. Currently awaiting deferral and full court hearing date. -Medications: Increased paliperidone by mouth 6 mg daily for psychosis starting tomorrow. We'll continue to seek to transition patient on 2 Invega Sustenna prior to discharge. Continue trazodone 25 mg daily at bedtime for insomnia/mood. -B12 and folate within normal limits -Syphilis - positive. -When necessary Geodon and Ativan for agitation/aggression. -NRT - nicotine patch -SW on board for discharge planning. Encouraged the patient to participate in milieu. Awaiting deferral and court hearing date.
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
[2019-07-25] MEDS: traZODone HCL 50 MG TAB PO SCH (20:21)
[2019-07-26] MEDS: PALIPERIDONE 6 MG TAB.ER.24 PO SCH (08:03)
[2019-07-26] MEDS: NICOTINE 14MG/24HR PATCH TRANSDERM SCH (08:03)
--- NOTE | 2019-07-26 08:25 | CONS ---
CONSULTATION DATE OF SERVICE: 07/25/2019 REASON FOR CONSULTATION: Positive syphilis test. HISTORY OF PRESENT ILLNESS: The patient is a 48-year-old, female with a past medical history significant for schizoaffective disorder who has been brought into the ER by the father who petitioned her saying loss of memory acting and laughing for no reason. The patient stares at the sun and walks to the TV and stares. The patient also had been refusing her medication. Told the ER physician that the demons tell her to take the medication and she does not want to take the medication. For the same reason, the patient says the devil is in her head and telling her to harm herself and appears to be distracted on admission or presentation to the hospital. There was no suicidal or homicidal ideation. The patient has been evaluated by the ER physician, subsequently has been admitted to the hospital to the psych floor where the patient has had workup done. She did have normal CBC. Urine drug screen was negative. The patient did have RPR which was not negative. However, treponema pallidum antibody came back positive that prompted this infectious disease consultation. The patient, at time of evaluation, initially was cooperative and denied any headache or any neurological symptoms to me. No runny nose. No sore throat, chest pain, shortness of breath or cough. No abdominal pain or any diarrhea. REVIEW OF SYSTEMS: Positive points have been mentioned in HPI. Rest of the systems are negative. PAST MEDICAL HISTORY: Past medical history is significant for schizoaffective disorder and asthma. PAST SURGICAL HISTORY: , back surgery x2. PSYCHOLOGICAL HISTORY: Positive for anxiety, depression, schizoaffective disorder. SOCIAL HISTORY: The patient is a current everyday smoker. Occasionally drinks and denies any drug use. The patient is currently diverse. When asked about the sexual history, The patient got upset and walked out of the room. MEDICATION: Include the patient is currently on Tylenol, Maalox, Ativan, Milk of Magnesia, nicotine patch, Desyrel, , Invega. PHYSICAL EXAMINATION: Blood pressure 111/72 with a pulse of 68, temperature 98.2. She is 98% on room air. General description: The patient is an elderly female up in the chair in no distress. Exam could not be completed as the patient was uncooperative. LABS: Hemoglobin is 41, white count 6.5, creatinine 0.70. Urine drug screen was negative. RPR negative. Treponema pallidum antibiotic positive. DIAGNOSTIC IMPRESSION AND PLAN: Patient with schizoaffective disorder, admitted to the hospital with not taking her medication and schizoaffective disorder in this patient who did have blood work with RPR negative and treponema pallidum antibody positive with discordance questionably falsely positive antibodies versus syphilis as the patient currently denies any sexual activity to me though she was not very forthcoming as far as her history is concerned. PLAN: We will wait for the final confirmation from the State labs about her treponema pallidum antibody which if positive, further workup was recommended. However, if negative, no further workup will be needed. Thank you for this consultation. MMODL / IJN: [id number] /
[2019-07-26] MEDS: NICOTINE 21MG/24HR PATCH TRANSDERM SCH (09:31)
--- NOTE | 2019-07-26 15:22 | P.PN ---
Progress Note - Text Progress Note Date: 07/26/19 Clinical Problems: Unspecified psychotic disorder, rule out schizoaffective disorder, rule out psychosis secondary to general medical condition, reactive. Treponema pallidum antibody with negative RPR Interim history: I reviewed the medical record and interviewed the patient. She denied problems or concerns. She denied side effects to her medication. She is often observed wandering and mostly in the hallway. At one point she began to follow me around the unit and into the nurses station. She was easily redirected.. She was unable to articulate the reason for this hospitalization Consulting hospitalists consult appreciated and consult placed for infectious disease Mental status exam:. She presented as a casually groomed 48-year-old female who was pleasant on approach. She made eye contact but is unsure if she was fully attending to the interview. She had no distinguishing features or prominent physical abnormalities. She was able to name the month, year, the day of the week, during the hospital and the city. She had a blunted and flat facial expression. She was restless but not agitated and did not display abnormal movements. She had a slow but steady gait. Her speech was not spontaneous and had decreased rate and rhythm. Her affect was flat and not reactive. She did not express suicidal ideation, wishes or homicidal ideation. She denied feeling hopeless, helpless or worthless. She did not express clear ideas reference, paranoid ideation or delusions. However, she had poverty of speech and poverty of content. Her thinking was concrete but her associations appeared organized. She denied hallucinations and did not appear to be responding to internal stimuli. Assessment: She appears confused but was able to answer basic orientation questions. She denied hallucinations but I suspect that she is experiencing auditory hallucinations. Plan: Continue current medications including Invega 6 mg by mouth daily and Desyrel 25 mg at bedtime. Geodon 20 mg IM twice a day when necessary for agitation or aggression.
[2019-07-26] MEDS: traZODone HCL 50 MG TAB PO SCH (22:23)
[2019-07-27] MEDS: ZIPRASIDONE 20 MG VIAL IM PRN ×2 (02:57→19:25)
[2019-07-27] MEDS: LORazepam 2 MG/ML INJ IM PRN ×2 (02:57→19:26)
[2019-07-27] MEDS: PALIPERIDONE 6 MG TAB.ER.24 PO SCH (10:44)
[2019-07-27] MEDS: NICOTINE 21MG/24HR PATCH TRANSDERM SCH (10:44)
--- NOTE | 2019-07-27 11:54 | P.PN ---
Progress Note - Text Progress Note Date: 07/27/19 Clinical Problems: Schizophrenia, rule out schizoaffective disorder, reactive Treponema pallidum antibody with negative RPR Interim history: I reviewed the medical record the patient. She was distressed that she received an IM injection of Geodon and Ativan yesterday. According to record, she became acutely angry by the nurse making rounds. She was yelling and would not calm even after the nurse apologized for disturbing her. She came out of her room partially clothed and exposed herself. We talked about this incident and she admitted that she became angry with the nurse. She remembers arguing and yelling, slamming the door and walking in the hallway with only her top. She is denying experiencing hallucinations but has multiple psychotic symptoms including thought broadcasting, thought control and thought insertion. She believes that she has a special relationship with God and God put thoughts into her mind. He also guards against thoughts placed in her mind by the devil. Mental status exam: She presented as a casually groomed 48 showed a female who had multiple earrings. She made eye contact and attended the interview. She showed no abnormality of psychomotor activity. She had no abnormal movements. Her speech was spontaneous, blunted with normal volume. Her affect was blunted but stable and appropriate. She denied suicidal ideation, wishes homicidal ideation. She feels helpless but denied helplessness or worthlessness. She did not express clear paranoid ideation or delusions. I was uncertain whether she is experiencing ideas of reference. Her thinking was concrete but her associations were organized. She has disturbances of thought as described above. She denied hallucinations and did not appear to be responding to internal stimuli. She has a month and year. She was able to register memory phrase "[employer], [address] [place] [address]." She did not estimate the time correctly within 1 hour actual time. She is able to count backwards from 20-1 and name the months of the year in reverse order beginning with February. She remembered only one element of the memory phrase. Assessment: She is chronically and persistently mentally ill and minimally improve from admission. She has periods of agitation and shows no insight or understanding of her illness. She has difficulties with attention and short- term memory. Plan: Continue inpatient treatment. Continue safety precautions. Continue current psychotropic medications including Invega 6 mg daily. Geodon and/or Ativan for agitation or behavioral dyscontrol. Evaluate clinical status response to treatment daily basis.
[2019-07-27] MEDS: traZODone HCL 50 MG TAB PO SCH (22:06)
[2019-07-28] MEDS: NICOTINE 21MG/24HR PATCH TRANSDERM SCH (09:07)
[2019-07-28] MEDS: PALIPERIDONE 6 MG TAB.ER.24 PO SCH (09:07)
[2019-07-28] MEDS ORDERED: PALIPERIDONE 3 MG TAB.ER.24 PO STA (11:22)
--- NOTE | 2019-07-28 11:33 | P.PN ---
Progress Note - Text Progress Note Date: 07/28/19 Interval History: Patient was seen wandering the hallways about taking shower and was directable and agreeable to speak with music writer in the office. Patient appeared to be less confused today however did not know today's date and believes that it was August. Patient continues to be superficial however did state that she is doing "fine". She claims that she has been feeling "sicker" and claims that she's been coughing and sneezing more. She claims that "they're not feeding us enough" and explained that she was stealing food from the dining crowley when she was not allowed to. She appeared to be less delusional today and did not endorse any paranoia. She claims that her mood as been gradually improving and denied any anxiety at this time. She states that she was able to sleep throughout the night. At this time patient denies any suicidal or homical ideations, intent or plan. Patient denies any auditory, visual hallucinations and denies any paranoia or delusions. Patient denies any side effects from the medications and has been compliant with meds. Mental Status Exam: General Appearance: Patient appears to be stated age is alert, less confused today and more appropriate. Patient appears to have improving hygiene and grooming. Behavior: Patient is seated without any agitated behavior. Less confused today. Defiant at times. Speech: Patient's speech is fluent and nonpressured. Mood/Affect: Patient reports their mood is "good", affect is congruent and constricted. Suicidality/Homicidality: Patient denies having any homicidal ideation intent or plan. Denies any suicidal ideations intent or plan Perceptions: Patient denies any visual hallucinations and denies any auditory hallucinations Though content/process: Poverty of content, vague. More logical and goal oriented today. Memory and concentration: AOX2, believes that it is "August 2019", improving attention span. Judgment and insight: poor, mildly improving Assessment Psychosis unspecified, rule out secondary to a general medical condition versus schizoaffective disorder Nicotine dependence Plan: -Patient continues to meet criteria for inpatient psychiatric admission for symptom stabilization and safety. Patient has not signed adult voluntary form or medication consent and was placed in patient's chart. Currently awaiting deferral and full court hearing date. -Medications: Increased paliperidone by mouth 9 mg daily for psychosis. We'll continue to seek to transition patient on 2 Invega Sustenna prior to discharge, likely to give Invega Sustenna tomorrow loading dose. Continue trazodone 25 mg daily at bedtime for insomnia/mood. -B12 and folate within normal limits -Syphilis - positive. Infectious disease consultation, appreciate recommendations. Currently awaiting for confirmation test from the state. -Reordered CBC with differential and basic metabolic panel. Ordered COVID test today. -When necessary Geodon and Ativan for agitation/aggression. -NRT - nicotine patch -SW on board for discharge planning. Encouraged the patient to participate in milieu.
[2019-07-28 12:04] LABS: Basophils # (A) 0.1 k/uL (0-0.2); Basophils % (A) 1 %; Eosinophils # (A) 0.2 k/uL (0-0.7); Eosinophils % (A) 2 %; Lymphocytes # (A) 2.6 k/uL (1.0-4.8); Lymphocytes % (A) 36 %; MCH 29.7 pg (25.0-35.0); MCHC 32.7 g/dL (31.0-37.0); MCV 90.7 fL (80.0-100.0); Mean Platelet Volume 7.8; Monocytes # (A) 0.4 k/uL (0-1.0); Monocytes % (A) 5 %; Neutrophils # (A) 3.9 k/uL (1.3-7.7); Neutrophils % (A) 54 %; Platelet Count 245 k/uL (150-450); RBC 4.74 m/uL (3.80-5.40); RDW 12.2 % (11.5-15.5); WBC 7.3 k/uL (3.8-10.6)
[2019-07-28] MEDS: LORATADINE 10 MG TAB PO SCH (12:11)
[2019-07-28 12:19] LABS: African American GFR (CKD) >90 (>60 ml/min/1.73 sqM); Anion Gap 10 mmol/L; Blood Urea Nitrogen 11 mg/dL (7-17); Calcium 9.4 mg/dL (8.4-10.2); Carbon Dioxide 22 mmol/L (22-30); Chloride 102 mmol/L (98-107); Glucose 95 mg/dL (74-99); Non-African American GFR(CKD) >90 (>60 ml/min/1.73 sqM); Sodium 134 mmol/L (137-145)
[2019-07-28] MEDS: traZODone HCL 50 MG TAB PO SCH (19:39)
[2019-07-29] MEDS: NICOTINE 21MG/24HR PATCH TRANSDERM SCH (09:10)
[2019-07-29] MEDS: PALIPERIDONE 3 MG TAB.ER.24 PO SCH (09:10)
[2019-07-29] MEDS: LORATADINE 10 MG TAB PO SCH (09:11)
--- NOTE | 2019-07-29 12:04 | P.PN ---
Progress Note - Text Progress Note Date: 07/29/19 Interval History: Patient was seen sitting in her room this morning and was directable and agree able to speak with procedure writer in the office. Patient appeared to be less confused today and correctly stated today's date saying "jul 29 2019" and also knew that she was in the correct hospital. She states that she has been sitting in her room waiting for her Hanna virus test to come back. She was informed today that it was negative. She claims that she has been trying to go to some groups and speaking with her father over the phone. Patient claims that she feels the medications are helping her. Patient continues to be superficial during conversation. According to staff, patient has been disorganized and agitated at times in the afternoon. She appears to have improvement in her frustration tolerance and irritability. She appeared to be less delusional today. She states that she was able to sleep throughout the night. At this time patient denies any suicidal or homical ideations, intent or plan. Patient denies any auditory, visual hallucinations and denies any paranoia or delusions. Patient denies any side effects from the medications and has been compliant with meds. Mental Status Exam: General Appearance: Patient appears to be stated age is alert, less confused today and more appropriate. Patient appears to have improving hygiene and grooming. Behavior: Patient is seated without any agitated behavior. Less confused today. Speech: Patient's speech is fluent and nonpressured. Mood/Affect: Patient reports their mood is "ok", affect is congruent and constricted. Suicidality/Homicidality: Patient denies having any homicidal ideation intent or plan. Denies any suicidal ideations intent or plan Perceptions: Patient denies any visual hallucinations and denies any auditory hallucinations Though content/process: Poverty of content, vague. [place]. More logical and goal oriented today. Memory and concentration: AOX3, improving attention span. Judgment and insight: poor, mildly improving Assessment Psychosis unspecified, rule out secondary to a general medical condition versus schizoaffective disorder Nicotine dependence Plan: -Patient continues to meet criteria for inpatient psychiatric admission for symptom stabilization and safety. Patient has not signed adult voluntary form or medication consent and was placed in patient's chart. Currently awaiting deferral and full court hearing date. -Medications: Continue with paliperidone by mouth 9 mg daily for psychosis. We'll continue to seek to transition patient on 2 Invega Sustenna, patient will be given her loading dose tomorrow 234 mg IM. Continue trazodone 25 mg daily at bedtime for insomnia/mood. -B12 and folate within normal limits -Syphilis - positive. Infectious disease consultation, appreciate recommendations. RPR was negative. COVID-19 test was negative. -CBC with differential and basic metabolic panel reviewed. -When necessary Geodon and Ativan for agitation/aggression. -NRT - nicotine patch -SW on board for discharge planning. Encouraged the patient to participate in milieu. Likely discharge in 1-2 days after patient is given the long-acting injection. coloring room worker to recheck patient's father to arrange for patient's discharge as she is approaching her baseline.
[2019-07-29] MEDS: traZODone HCL 50 MG TAB PO SCH (20:27)
[2019-07-30] MEDS: PALIPERIDONE 3 MG TAB.ER.24 PO SCH (07:54)
[2019-07-30] MEDS: LORATADINE 10 MG TAB PO SCH (07:55)
[2019-07-30] MEDS: NICOTINE 21MG/24HR PATCH TRANSDERM SCH (07:55)
--- NOTE | 2019-07-30 11:54 | P.PN ---
Progress Note - Text Progress Note Date: 07/30/19 Interval History: Patient was seen sitting in on group this morning doing activities and was dir ectable and agreeable to speak with insurance writer in the office. Patient appeared to be more directable and cooperative today and had mildly improved insight. She appears to be less confused today. She claims that she has been trying to go to some groups and speaking with her father over the phone and is preparing for discharge tomorrow. Patient states that she does not want to take the long- acting injection and adamantly explains that she will be compliant with her medications when she leaves the hospital. Patient claims that she feels the medications are helping her stabilize her mood and she claims that she feels "better today". Patient continues to be superficial during conversation. She appears to have improvement in her frustration tolerance and irritability. She states that she was able to sleep throughout the night. At this time patient denies any suicidal or homical ideations, intent or plan. Patient denies any auditory, visual hallucinations and denies any paranoia or delusions. Patient denies any side effects from the medications and has been compliant with meds. Mental Status Exam: General Appearance: Patient appears to be stated age is alert, more directable and more appropriate. Patient appears to have improving hygiene and grooming. Behavior: Patient is seated without any agitated behavior. Less confused today. Speech: Patient's speech is fluent and nonpressured. Mood/Affect: Patient reports their mood is "good", affect is congruent and constricted. Suicidality/Homicidality: Patient denies having any homicidal ideation intent or plan. Denies any suicidal ideations intent or plan Perceptions: Patient denies any visual hallucinations and denies any auditory hallucinations Though content/process: [place]. More logical and goal oriented today. Not endorsing any delusions. Memory and concentration: AOX3, improving attention span. Judgment and insight: poor, mildly improving Assessment Psychosis unspecified, rule out secondary to a general medical condition versus schizoaffective disorder Nicotine dependence Plan: -Patient continues to meet criteria for inpatient psychiatric admission for symptom stabilization and safety. Patient has not signed adult voluntary form or medication consent and was placed in patient's chart. Currently awaiting deferral and full court hearing date. -Medications: Continue with paliperidone by mouth 9 mg daily for psychosis. Patient is declining long-acting injection at this time. Continue trazodone 25 mg daily at bedtime for insomnia/mood. -B12 and folate within normal limits -Syphilis - positive. Infectious disease consultation, appreciate recommendations. RPR was negative. COVID-19 test was negative. -CBC with differential and basic metabolic panel reviewed. -When necessary Geodon and Ativan for agitation/aggression. -NRT - nicotine patch -SW on board for discharge planning. Encouraged the patient to participate in milieu. Likely discharge tomorrow back home to her father's house.
[2019-07-30] MEDS: traZODone HCL 50 MG TAB PO SCH (20:19)
[2019-07-31 06:50] VITALS: BP 128/76; PULSE 82; RESP 16; TEMP 98.1
[2019-07-31] MEDS: LORATADINE 10 MG TAB PO SCH (08:32)
[2019-07-31] MEDS: PALIPERIDONE 3 MG TAB.ER.24 PO SCH (08:32)
[2019-07-31] MEDS: NICOTINE 21MG/24HR PATCH TRANSDERM SCH (08:32)
[2019-07-31] MEDS ORDERED: PALIPERIDONE IM 234 MG/1.5 ML SYG IM STA (09:49)
--- NOTE | 2019-07-31 10:15 | P.DS ---
Providers Date of admission: 07/24/19 00:03 Expected date of discharge: 07/31/19 Attending physician: Ed Desouza MD Consults: 07/24/19 00:54 Consult Physician Routine Consulting Provider: Branden Sanders Consult Reason/Comments: medical management Do you want consulting provider notified?: Yes, Notify in am 07/25/19 11:53 Consult Physician Routine Consulting Provider: Karina Grijalva Consult Reason/Comments: positive treponema pallidum lab result Do you want consulting provider notified?: Yes 07/26/19 09:12 Consult Physician Routine Consulting Provider: Karina Girjalva Consult Reason/Comments: reactive treponema pallidum ab Do you want consulting provider notified?: Yes Primary care physician: Dayday Saavedra - Arturo Diagnosis(es) (1) Unspecified psychosis Current Visit: Yes Status: Acute Priority: High (2) Nicotine dependence Current Visit: Yes Status: Acute Priority: Low Hospital Course: Admission HPI: Patient is a 48-year-old female who is and lives with her father and has 2 boys. Patient presented to the hospital and was evaluated in the ER. Patient was brought in by father who petitioned her stating "loss of memory acting and laughing for no reason" and also "stares at the son". The petition also states that patient "walks up to the TV and stares" and also has been refusing to take her medications. As per ER report patient admitted to noncompliance with her meds and also appeared to be talking to someone in the room when nobody was there and spoke about "the devil is in her head and telling her to harm herself" and appeared to be distracted during the interview in the ER. Patient's UDS was negative. Patient was seen laying down in her bed today and was initially bizarre and appeared to be confused and resistant to speak with chief writer and needed significant direction. Patient did appear to be confused and was a poor historian. She claims that she has been not taking her medications and perseverated on this several times are at the interview. She complained of a headache. She followed some commands and had difficulty concentrating during the interview. She was slow to respond and was vague with poor insight. She states that she slept poorly and when asked about her mood she states it is "lonely". Patient denies any suicidal or homicidal ideations intent or plan. At this time patient denies any auditory or visual hallucinations. Patient admits to using cigarettes daily. UDS was negative. Hospital course: Upon admission to the unit patient was initially bizarre, floridly psychotic w ith poor attention span and difficult to redirect. Patient was however agreeable to commence treatment and take medications. As patient progressed through her hospitalization she got along well with other patients on the unit and followed unit protocol. Patient was compliant with the medications and denied any side effects throughout hospital course. Patient was started on paliperidone by mouth and titrated up to a dose of 9 mg daily for psychosis and also trazodone titrated up to a dose of 50 mg daily at bedtime for insomnia/mood. Patient was agreeable to be placed on Invega Sustenna long-acting injection to ensure compliance and was given 234 mg IM injection on 07/31/2019 and will be due for her next injection on 08/07/2019 of 156 mg IM and will also be due for her maintenance dose IM on 08/28/2019 of 156 mg. Patient spoke of her stressors and engaged in therapy both group and individual. Patient was also seen by medical team for history and physical exam. Patient had a computed tomography scan brain on 07/23 for altered mental status but showed no significant abnormalities. Patient also had an infectious disease consultation after patient initially test positive for syphilis screening test on 07/23 however RPR and confirmatory test was negative. Patient also had cough and sneezing and had a COVID-19 test which was negative. Throughout the course of the hospitalization patient gradually improved with regards to her bizarre behaviors, mood, psychosis, sleep and became future oriented with improved insight and judgment. On the day of discharge patient denied any suicidal or homicidal ideations intent or plan denied any auditory or visual hallucinations. Patient endorsed wanting to live for her future and her health. The patient denied any access to guns or weapons. Patient denied any paranoia and did not endorse any delusions. Patient does not have a significant history of substance abuse however was counseled on abstaining from all substances including alcohol and marijuana. Patient was also counseled on the medications and need for regular compliance and was encouraged to follow-up with their outpatient appointment for mental health and also for primary care. Prior to discharge a family meeting will be arranged by social service director to answer any questions and ensure safety upon discharge. Mental status exam: General Appearance: Patient appears to be stated age is alert, directable, and attempts to be cooperative. Patient is in no acute distress and has fair hygiene and grooming Behavior: Patient is calmly seated without any agitated behavior. Attempts to be cooperative. Speech: Patient's speech is fluent and nonpressured. Mood/Affect: Patient reports their mood is "good", affect is congruent and constricted. Suicidality/Homicidality: Patient denies having any suicidal or homicidal ideation intent or plan. Perceptions: Patient denies any auditory or visual hallucinations. Though content/process: There is no evidence of any delusional thought content and thought process is linear and goal-directed. [place]. Memory and concentration: AOX3, grossly intact for the purposes of this session. Can spell "WORLD" backwards correctly. Judgment and insight: Limited with guarded prognosis Impression: Psychosis unspecified, likely schizoaffective disorder Nicotine dependence Plan: -Continue with discharge today as patient has improved and stabilized psychiatrically and is not currently an imminent threat to herself and/or others. Patient does have chronically impaired impulsivity and limited judgment therefore puts her at chronically elevated risk for self-harm/harm to others and is not likely to be improved much further with medications/treatment on the mental health unit. -Continue medications: Patient to be continued on paliperidone 6 mg daily for psychosis for 3 more days then decreased down to 3 mg daily for 3 more days then discontinued. Patient to be continued on trazodone 50 mg daily at bedtime for insomnia/mood. Patient was agreeable to be placed on Invega Sustenna long-acting injection to ensure compliance and was given 234 mg IM injection on 07/31/2019 and will be due for her next injection on 08/07/2019 of 156 mg IM and will also be due for her maintenance dose IM on 08/28/2019 of 156 mg. -Patient was counseled on the need for medication compliance and appropriate follow-up at mental health and also primary care for medical issues. Patient verbalized understanding and agreed. -Social work to arrange for and conduct family meeting to ensure safety upon discharge and answer any questions/concerns. Social work also to arrange for patients follow up appointments with [facility] for psychiatric care along with follow up with primary care provider. -Patient counseled on abstaining from recreational drugs and marijuana and alcohol. Was informed/educated on the adverse effects on their physical and mental health. Patient verbally agreed and understood. -Patient was instructed to return to the hospital or seek immediate medical care if their psychiatric or medical symptoms do worsen or reoccur. Allergies Allergy/AdvReac Type Severity Reaction Status Date / Time No Known Allergies Allergy Verified 07/23/19 20:44 Laboratory Results WBC 7.3 k/uL (3.8-10.6) 07/28/19 11:47 RBC 4.74 m/uL (3.80-5.40) 07/28/19 11:47 Hgb 14.0 gm/dL (11.4-16.0) 07/28/19 11:47 Hct 43.0 % (34.0-46.0) 07/28/19 11:47 MCV 90.7 fL (80.0-100.0) 07/28/19 11:47 MCH 29.7 pg (25.0-35.0) 07/28/19 11:47 MCHC 32.7 g/dL (31.0-37.0) 07/28/19 11:47 RDW 12.2 % (11.5-15.5) 07/28/19 11:47 Plt Count 245 k/uL (150-450) 07/28/19 11:47 Neutrophils % 54 % 07/28/19 11:47 Lymphocytes % 36 % 07/28/19 11:47 Monocytes % 5 % 07/28/19 11:47 Eosinophils % 2 % 07/28/19 11:47 Basophils % 1 % 07/28/19 11:47 Neutrophils # 3.9 k/uL (1.3-7.7) 07/28/19 11:47 Lymphocytes # 2.6 k/uL (1.0-4.8) 07/28/19 11:47 Monocytes # 0.4 k/uL (0-1.0) 07/28/19 11:47 Eosinophils # 0.2 k/uL (0-0.7) 07/28/19 11:47 Basophils # 0.1 k/uL (0-0.2) 07/28/19 11:47 Sodium 134 mmol/L (137-145) L 07/28/19 11:47 Potassium 4.0 mmol/L (3.5-5.1) 07/28/19 11:47 Chloride 102 mmol/L (98-107) 07/28/19 11:47 Carbon Dioxide 22 mmol/L (22-30) 07/28/19 11:47 Anion Gap 10 mmol/L 07/28/19 11:47 BUN 11 mg/dL (7-17) 07/28/19 11:47 Creatinine 0.79 mg/dL (0.52-1.04) 07/28/19 11:47 Est GFR (CKD-EPI)AfAm >90 (>60 ml/min/1.73 sqM) 07/28/19 11:47 Est GFR (CKD-EPI)NonAf >90 (>60 ml/min/1.73 sqM) 07/28/19 11:47 Glucose 95 mg/dL (74-99) 07/28/19 11:[address] Glu mg/dL 108 07/24/19 06:36 Hemoglobin A1c 5.4 % (4.0-6.0) 07/24/19 06:36 Calcium 9.4 mg/dL (8.4-10.2) 07/28/19 11:47 Total Bilirubin 0.8 mg/dL (0.2-1.3) 07/24/19 06:36 AST 18 U/L (14-36) 07/24/19 06:36 ALT 13 U/L (4-34) 07/24/19 06:36 Alkaline Phosphatase 67 U/L (38-126) 07/24/19 06:36 Total Protein 6.6 g/dL (6.3-8.2) 07/24/19 06:36 Albumin 4.0 g/dL (3.5-5.0) 07/24/19 06:36 Triglycerides 90 mg/dL (<150) 07/24/19 06:36 Cholesterol 234 mg/dL (<200) H 07/24/19 06:36 LDL Cholesterol, Calc 170 mg/dL (0-99) H 07/24/19 06:36 HDL Cholesterol 46 mg/dL (40-60) 07/24/19 06:36 Vitamin B12 286.0 pg/mL (200.0-944.0) 07/24/19 06:36 Folate 19.7 ng/mL 07/24/19 06:36 TSH 1.060 mIU/L (0.465-4.680) 07/24/19 06:36 Urine Opiates Screen Not Detected (NotDetected) 07/23/19 20:18 Ur Oxycodone Screen Not Detected (NotDetected) 07/23/19 20:18 Urine Methadone Screen Not Detected (NotDetected) 07/23/19 20:18 Ur Propoxyphene Screen Not Detected (NotDetected) 07/23/19 20:18 Ur Barbiturates Screen Not Detected (NotDetected) 07/23/19 20:18 U Tricyclic Antidepress Not Detected (NotDetected) 07/23/19 20:18 Ur Phencyclidine Scrn Not Detected (NotDetected) 07/23/19 20:18 Ur Amphetamines Screen Not Detected (NotDetected) 07/23/19 20:18 U Methamphetamines Scrn Not Detected (NotDetected) 07/23/19 20:18 U Benzodiazepines Scrn Not Detected (NotDetected) 07/23/19 20:18 Urine Cocaine Screen Not Detected (NotDetected) 07/23/19 20:18 U Marijuana (THC) Screen Not Detected (NotDetected) 07/23/19 20:18 RPR Non-Reactive 07/24/19 06:36 Treponema pallidum Ab Reactive (Non-Reactive) H 07/24/19 06:36 Coronavirus (PCR) Not Detected (Not Detected) 07/28/19 14:01 Vital Signs Temp 98.1 F 07/31/19 06:49 Pulse 82 07/31/19 06:49 Resp 16 07/31/19 06:49 BP 128/76 07/31/19 06:49 Pulse Ox 97 07/31/19 06:49 Patient Condition at Discharge: Stable Plan - Discharge Summary New Discharge Prescriptions: New Loratadine [Claritin] 10 mg PO DAILY 30 Days tab traZODone HCL [Desyrel] 50 mg PO HS 30 Days tab Nicotine 21Mg/24Hr Patch [Habitrol] 1 patch TRANSDERM DAILY 14 Days patch Paliperidone [Invega] 6 mg PO DAILY 3 Days tab.er.24 Paliperidone [Invega] 3 mg PO DAILY 3 Days tab.er.24 Acetaminophen Tab [Tylenol] 650 mg PO Q4HR PRN tab PRN Reason: Pain/Discomfort Paliperidone IM [Invega Sustenna] 156 mg IM ONCE #1 syr Paliperidone IM [Invega Sustenna] 156 mg IM ONCE #1 syr Discontinued Lacosamide [Vimpat] 200 mg PO BID Benztropine Mesylate [Cogentin] 1 mg PO TID clonazePAM [KlonoPIN] 1 mg PO BID busPIRone HCL [Buspar] 30 mg PO BID hydrOXYzine HCL [Atarax] 50 mg PO HS Pregabalin [Lyrica] 75 mg PO BID Brexpiprazole [Rexulti] 2 mg PO HS Venlafaxine HCl [Effexor] 100 mg PO TID Discharge Medication List Acetaminophen Tab [Tylenol] 650 mg PO Q4HR PRN tab 07/31/19 [Rx] Loratadine [Claritin] 10 mg PO DAILY 30 Days tab 07/31/19 [Rx] Nicotine 21Mg/24Hr Patch [Habitrol] 1 patch TRANSDERM DAILY 14 Days patch 07/31/19 [Rx] Paliperidone IM [Invega Sustenna] 156 mg IM ONCE #1 syr 07/31/19 [Rx] Paliperidone IM [Invega Sustenna] 156 mg IM ONCE #1 syr 07/31/19 [Rx] Paliperidone [Invega] 3 mg PO DAILY 3 Days tab.er.24 07/31/19 [Rx] Paliperidone [Invega] 6 mg PO DAILY 3 Days tab.er.24 07/31/19 [Rx] traZODone HCL [Desyrel] 50 mg PO HS 30 Days tab 07/31/19 [Rx] Follow up Appointment(s)/Referral(s): Dayday Saavedra MD [Primary Care Provider] - 1-2 days Discharge Disposition: HOME SELF-CARE
[2019-07-31] MEDS ORDERED: traZODone HCL 50 MG TAB PO SCH (21:00)
[2019-08-01] MEDS ORDERED: PALIPERIDONE 6 MG TAB.ER.24 PO SCH (09:00)
== END 2019-07-31 13:25 | disposition home or self-care (01) | DRG 885 ==
LOC: EC 18:18 → 3MHU 07-24 00:03
PROVIDERS: ADMIT Psychiatry & Neurology Psychiatry; ATTEND Psychiatry & Neurology Psychiatry
DX: F29 Unspecified psychosis not due to a substance or known physiological condition (principal); J43.9 Emphysema, unspecified; F41.9 Anxiety disorder, unspecified; Z20.828 Contact with and (suspected) exposure to other viral communicable diseases; T50.906A Underdosing of unspecified drugs, medicaments and biological substances, initial encounter; S69.92XA Unspecified injury of left wrist, hand and finger(s), initial encounter; J45.909 Unspecified asthma, uncomplicated; G47.00 Insomnia, unspecified; R76.8 Other specified abnormal immunological findings in serum; F17.210 Nicotine dependence, cigarettes, uncomplicated; Z79.899 Other long term (current) drug therapy; Z86.14 Personal history of Methicillin resistant Staphylococcus aureus infection; Z96.60 Presence of unspecified orthopedic joint implant; Z98.891 History of uterine scar from previous surgery; Z86.69 Personal history of other diseases of the nervous system and sense organs; Z98.890 Other specified postprocedural states; W23.0XXA Caught, crushed, jammed, or pinched between moving objects, initial encounter; Y63.6 Underdosing and nonadministration of necessary drug, medicament or biological substance
CPT/HCPCS: 70470; 80048; 80053; 80061; 80306; 82075; 82607; 82746; 83036; 84443; 85025; 86592; 86780; 87635; 99285

== ENCOUNTER 2019-08-17 13:41 | Emergency (ER) | payer OTHER ==
--- NOTE | 2019-08-17 14:14 | ED ---
Psych HPI - General Chief Complaint: Psychiatric Symptoms Stated Complaint: Mental Health Time Seen by Provider: 08/17/19 13:49 Source: patient, police, RN notes reviewed Mode of arrival: ambulatory Limitations: no limitations - History of Present Illness Initial Comments: This is a 48-year-old female presents emergency from with police for psychiatric evaluation. Please were notified by father stating the patient was making threats to harm herself. She denies it. Patient is petition by for her police department secondary to her thoughts of harming herself she did have a recent admission for acute psychosis. She states that she does take her medication but sometimes misses it. Patient denies any drug or alcohol use. Denies any physical complaints - Related Data Previous Rx's Medication Instructions Recorded Acetaminophen Tab [Tylenol] 650 mg PO Q4HR PRN tab 07/31/19 Loratadine [Claritin] 10 mg PO DAILY 30 Days tab 07/31/19 Nicotine 21Mg/24Hr Patch [Habitrol] 1 patch TRANSDERM DAILY 14 Days 07/31/19 patch Paliperidone IM [Invega Sustenna] 156 mg IM ONCE #1 syr 07/31/19 Paliperidone IM [Invega Sustenna] 156 mg IM ONCE #1 syr 07/31/19 Paliperidone [Invega] 3 mg PO DAILY 3 Days tab.er.24 07/31/19 Paliperidone [Invega] 6 mg PO DAILY 3 Days tab.er.24 07/31/19 traZODone HCL [Desyrel] 50 mg PO HS 30 Days tab 07/31/19 Allergies Allergy/AdvReac Type Severity Reaction Status Date / Time No Known Allergies Allergy Verified 08/17/19 13:49 Review of Systems ROS Statement: Those systems with pertinent positive or pertinent negative responses have been documented in the HPI. ROS Other: All systems not noted in ROS Statement are negative. Past Medical History Past Medical History: Unable to Obtain Additional Past Medical History / Comment(s): "I don't know" History of Any Multi-Drug Resistant Organisms: MRSA Date of last positivie culture/infection: 03/13/19 MDRO Source:: Left Leg Past Surgical History: Unable to Obtain, Section, Joint Replacement Additional Past Surgical History / Comment(s): x2, back surgery. Past Anesthesia/Blood Transfusion Reactions: No Reported Reaction Past Psychological History: Anxiety, Bipolar, Depression, Schizoaffective Disorder Smoking Status: Current every day smoker Past Alcohol Use History: Occasional Past Drug Use History: None Reported General Exam Limitations: no limitations General appearance: alert, in no apparent distress Head exam: Present: atraumatic, normocephalic, normal inspection Eye exam: Present: normal appearance, PERRL, EOMI. Absent: scleral icterus, conjunctival injection, periorbital swelling ENT exam: Present: normal exam, normal oropharynx, mucous membranes moist Neck exam: Present: normal inspection, full ROM. Absent: tenderness, meningismus, lymphadenopathy Respiratory exam: Present: normal lung sounds bilaterally. Absent: respiratory distress, wheezes, rales, rhonchi, stridor Cardiovascular Exam: Present: normal rhythm, tachycardia, normal heart sounds. Absent: systolic murmur, diastolic murmur, rubs, gallop, clicks Neurological exam: Present: alert, oriented X3, CN II-XII intact Psychiatric exam: Present: anxious Skin exam: Present: warm, dry, intact, normal color. Absent: rash Course Vital Signs 08/17/19 13:44 Temperature 98 F Pulse Rate 115 H Respiratory 20 Rate Blood Pressure 133/88 O2 Sat by Pulse 99 Oximetry Medical Decision Making - Medical Decision Making 48-year-old female presented for psychiatric evaluation. Patient denies being suicidal. Case discussed with psychiatrist, evaluated by EPS and [facility] recommends patient receive her in today injection as she was scheduled to. Father agrees that she may come back to the house this is a safe environment. Return parameters discussed. Disposition Clinical Impression: Depression Disposition: HOME SELF-CARE Condition: Stable Instructions (If sedation given, give patient instructions): Depression (ED) Additional Instructions: Please return to the Emergency Department if symptoms worsen or any other concerns. Is patient prescribed a controlled substance at d/c from ED?: No Referrals: Omega Saavedra MD [STAFF PHYSICIAN] - 1-2 days Time of Disposition: 15:06
[2019-08-17] MEDS ORDERED: PALIPERIDONE IM 234 MG/1.5 ML SYG IM STA (14:57)
[2019-08-17 16:15] LABS: Amphetamine Screen,Urine Not Detected (NotDetected); Barbiturate Screen,Urine Not Detected (NotDetected); Benzodiazepines Screen,Urine Detected (NotDetected); Cocaine Screen,Urine Detected (NotDetected); Methadone Screen, Urine Not Detected (NotDetected); Opiate Screen,Urine Not Detected (NotDetected); Oxycodone Screen, Urine Not Detected (NotDetected); Phencyclidine Screen,Urine Not Detected (NotDetected); Tricyclic Antidepressant,Urine Not Detected (NotDetected); Urn Cannabinoid Scrn Not Detected (NotDetected)
[2019-08-17 17:59] VITALS: BP 135/75; PULSE 88; RESP 18; TEMP 98.2
== END 2019-08-17 17:58 | disposition home or self-care (01) ==
LOC: EC 13:41
DX: F32.9 Major depressive disorder, single episode, unspecified (principal); F41.9 Anxiety disorder, unspecified; F17.200 Nicotine dependence, unspecified, uncomplicated; Z86.14 Personal history of Methicillin resistant Staphylococcus aureus infection
CPT/HCPCS: 82075; 80306; 96372; 99285; J2426

== ENCOUNTER → 2019-10-27 | Outpatient (CLI) | payer OTHER ==
--- NOTE | 2019-10-28 09:24 | NM ---
EXAMINATION TYPE: NM bone scan whole body DATE OF EXAM: 10/27/2019 COMPARISON: CT thoracic spine 04/05/2019 HISTORY: Compression fracture Delayed whole-body scanning was performed following the injection of 24.6 mCi Tc 99m MDP. Images acq uired 3 hours post injection. FINDINGS: There is increased activity at the T12 and T11 vertebral bodies. There is increased activity involving essentially all of the right ribs anteriorly/anterolaterally in a somewhat linear configuration. There is also activity at the right rib 11 posteromedially, right r ib 8 costovertebral joint versus the adjacent facet joint, left rib 8 posteromedially, and 2 left rib s at the costochondral junctions anteriorly. There is activity at the sternomanubrial joint and in the region of the xiphoid. There is focal activity involving the right superior pubic ramus versus acetabulum, and right pubic s ymphysis. Symmetric degenerative activity of the shoulders, knees, ankles, and feet. IMPRESSION: 1. Acute to subacute activity of the T12 and T11 vertebral bodies, at levels of known compression de formity and kyphoplasty changes. 2. Linear-appearing activity involving essentially all the right ribs anteriorly/anterolaterally lik francisco javier represents trauma or surgical changes. Scattered additional foci of activity of the ribs may also be related to trauma. 3. Activity involving the right superior pubic ramus/acetabulum, and the right pubic symphysis may r epresent fractures. Recommend correlation with pelvic radiograph. Correlate with any history of malig shannen. 4. Additional uptake at the sternomanubrial joint, xiphoid, shoulders, knees, and feet/ankles is lik francisco javier degenerative.
== END | disposition home or self-care (01) ==
LOC: RADNMMAIN 09:54
PROVIDERS: ATTEND Psychiatry & Neurology Neurology
DX: R94.8 Abnormal results of function studies of other organs and systems (principal); S32.000S Wedge compression fracture of unspecified lumbar vertebra, sequela; Z98.890 Other specified postprocedural states
CPT/HCPCS: 78306; A9503

== ENCOUNTER → 2019-11-12 | Outpatient (CLI) | payer OTHER ==
[2019-11-12 14:36] LABS: Basophils # (A) 0.1 k/uL (0-0.2); Basophils % (A) 1 %; Eosinophils # (A) 0.2 k/uL (0-0.7); Eosinophils % (A) 3 %; HCT 42.4 % (34.0-46.0); HGB 13.8 gm/dL (11.4-16.0); Lymphocytes # (A) 2.4 k/uL (1.0-4.8); Lymphocytes % (A) 34 %; MCH 29.1 pg (25.0-35.0); MCHC 32.7 g/dL (31.0-37.0); MCV 89.1 fL (80.0-100.0); Monocytes # (A) 0.5 k/uL (0-1.0); Monocytes % (A) 7 %; Neutrophils # (A) 3.6 k/uL (1.3-7.7); Neutrophils % (A) 52 %; Platelet Count 272 k/uL (150-450); RBC 4.76 m/uL (3.80-5.40); RDW 12.7 % (11.5-15.5); WBC 6.9 k/uL (3.8-10.6)
--- NOTE | 2019-11-12 14:40 | CT ---
EXAMINATION TYPE: CT abdomen pelvis wo/w con DATE OF EXAM: 11/12/2019 COMPARISON: Bone scan 10/27/2019 HISTORY: abnormal bone scan CT DLP: 1158.3 mGycm Automated exposure control for dose reduction was used. CONTRAST: CT scan of the abdomen pelvis is performed without and with IV Contrast, patient injected with 100 mL of Isovue 300. FINDINGS- LUNG BASES- No significant abnormality is appreciated. LIVER/GB- No gross abnormality is appreciated. PANCREAS- No gross abnormality is seen. SPLEEN-splenic granuloma noted. ADRENALS- No gross abnormality is seen. KIDNEYS/BLADDER- no hydronephrosis nephrolithiasis or renal mass. BOWEL- no bowel dilatation. Normal appendix. LYMPH NODES- No greater than 1cm abdominal or pelvic lymph nodes areappreciated. OSSEOUS STRUCTURES-there are multiple right-sided rib fractures. There are numerous compression fractures of the lower thoracic and thoracolumbar junction with eviden ce of vertebroplasty. Postoperative change involving the left hip noted. Nonspecific sclerosis involv ing the pubic ramus on the left corresponding to the bone scan abnormality likely related to previous trauma. Subtle deformity of the anterior column of the acetabulum. Correlate for history of trauma. OTHER- aorta of normal caliber. Atherosclerotic change seen. IMPRESSION- 1. No acute process. 2. Extensive osseous changes most likely on the basis of remote trauma.
[2019-11-12 14:46] LABS: ALT 15 U/L (4-34); AST 26 U/L (14-36); African American GFR (CKD) >90 (>60 ml/min/1.73 sqM); Albumin 4.5 g/dL (3.5-5.0); Alkaline Phosphatase 75 U/L (38-126); Anion Gap 9 mmol/L; Blood Urea Nitrogen 14 mg/dL (7-17); Calcium 9.4 mg/dL (8.4-10.2); Carbon Dioxide 24 mmol/L (22-30); Chloride 99 mmol/L (98-107); Glucose 93 mg/dL (74-99); Non-African American GFR(CKD) 87 (>60 ml/min/1.73 sqM); Potassium 4.4 mmol/L (3.5-5.1); Sodium 132 mmol/L (137-145); Total Bilirubin 0.4 mg/dL (0.2-1.3); Total Protein 7.2 g/dL (6.3-8.2)
== END | disposition home or self-care (01) ==
LOC: RADCTMAIN 12:07
PROVIDERS: ATTEND Psychiatry & Neurology Neurology
DX: R93.7 Abnormal findings on diagnostic imaging of other parts of musculoskeletal system (principal); M84.40XA Pathological fracture, unspecified site, initial encounter for fracture
CPT/HCPCS: 80053; 85025; 74178; 36415; Q9967

== ENCOUNTER 2019-12-26 16:02 | Emergency (ER) | payer OTHER ==
[2019-12-26] MEDS ORDERED: ONDANSETRON 4 MG/2 ML VIAL IVP STA (16:58)
[2019-12-26] MEDS ORDERED: SODIUM CHLORIDE 0.9% 1,000 ML IV STA (16:58)
[2019-12-26 17:49] LABS: Basophils # (A) 0.1 k/uL (0-0.2); Basophils % (A) 1 %; Eosinophils # (A) 0.1 k/uL (0-0.7); Eosinophils % (A) 2 %; HCT 42.2 % (34.0-46.0); HGB 13.9 gm/dL (11.4-16.0); Lymphocytes # (A) 2.5 k/uL (1.0-4.8); Lymphocytes % (A) 39 %; MCH 28.8 pg (25.0-35.0); MCHC 32.8 g/dL (31.0-37.0); MCV 87.7 fL (80.0-100.0); Mean Platelet Volume 6.8; Monocytes # (A) 0.3 k/uL (0-1.0); Monocytes % (A) 5 %; Neutrophils # (A) 3.3 k/uL (1.3-7.7); Neutrophils % (A) 52 %; Platelet Count 303 k/uL (150-450); RBC 4.81 m/uL (3.80-5.40); RDW 12.3 % (11.5-15.5); WBC 6.4 k/uL (3.8-10.6)
[2019-12-26 18:00] LABS: Albumin 3.8 g/dL (3.5-5.0); Calcium 9.3 mg/dL (8.4-10.2); Potassium 4.3 mmol/L (3.5-5.1); Total Bilirubin 0.2 mg/dL (0.2-1.3); Total Protein 6.4 g/dL (6.3-8.2)
--- NOTE | 2019-12-26 18:00 | US ---
EXAMINATION TYPE: US gallbladder DATE OF EXAM: 12/26/2019 COMPARISON: CT 2019 CLINICAL HISTORY: ruq abd pain. Abdomen pain and nausea x 1 week, gets worse after eating, patient no t NPO EXAM MEASUREMENTS: Liver Length: 15.8 cm Gallbladder Wall: 0.2 cm CBD: 0.3 cm Right Kidney: 9.8 x 4.7 x 4.6 cm Pancreas: visualized portions wnl, partially obscured by overlying midline bowel gas Liver: wnl Gallbladder: mildly contracted, visualized portions appear wnl Evidence for sonographic Zavala's sign: yes CBD: wnl Right Kidney: wnl IMPRESSION: Reported positive sonographic Zavala's sign, which can be seen with acute cholecystitis. However no sonographic evidence for acute abnormality or definitive gallstone.
[2019-12-26 18:18] LABS: Appearance,Urine Clear (Clear); Bilirubin,Urine Negative (Negative); Blood,Urine Negative (Negative); Color,Urine Light Yellow; Glucose,Urine (UA) Negative (Negative); Ketones,Urine Negative (Negative); Leukocyte Esterase,Urine Negative (Negative); Nitrite,Urine Negative (Negative); Protein,Urine Negative (Negative); Specific Gravity,Urine 1.007 (1.001-1.035); Urobilinogen,Urine <2.0 mg/dL (<2.0)
--- NOTE | 2019-12-26 19:02 | ED ---
Abdominal Pain HPI - General Chief Complaint: Abdominal Pain Stated Complaint: Gallbladder issues Time Seen by Provider: 12/26/19 16:10 Source: patient Mode of arrival: ambulatory Limitations: no limitations - History of Present Illness Initial Comments: Patient is a 49-year-old female past history of asthma presents emergency Department with reported right upper quadrant abdominal pain. States that it has been going on for the past week. Pain is worse with food intake. States she feels significantly bloated. Also reports to decreased energy. She followed up with Dr. Saavedra who sent her in to the emergency room for evaluation. Admits to nausea without vomiting. No history of peptic ulcer disease. Eyes a chest pain or shortness of breath. No changes in her bowel or bladder habits. No other alleviating, precipitating or modifying factors - Related Data Previous Rx's Medication Instructions Recorded Acetaminophen Tab [Tylenol] 650 mg PO Q4HR PRN tab 07/31/19 Loratadine [Claritin] 10 mg PO DAILY 30 Days tab 07/31/19 Nicotine 21Mg/24Hr Patch [Habitrol] 1 patch TRANSDERM DAILY 14 Days 07/31/19 patch Paliperidone IM [Invega Sustenna] 156 mg IM ONCE #1 syr 07/31/19 Paliperidone IM [Invega Sustenna] 156 mg IM ONCE #1 syr 07/31/19 Paliperidone [Invega] 3 mg PO DAILY 3 Days tab.er.24 07/31/19 Paliperidone [Invega] 6 mg PO DAILY 3 Days tab.er.24 07/31/19 traZODone HCL [Desyrel] 50 mg PO HS 30 Days tab 07/31/19 Allergies Allergy/AdvReac Type Severity Reaction Status Date / Time No Known Allergies Allergy Verified 12/26/19 16:08 Review of Systems ROS Statement: Those systems with pertinent positive or pertinent negative responses have been documented in the HPI. ROS Other: All systems not noted in ROS Statement are negative. Past Medical History Past Medical History: Asthma Additional Past Medical History / Comment(s): "I don't know" History of Any Multi-Drug Resistant Organisms: MRSA Date of last positivie culture/infection: 03/13/19 MDRO Source:: Left Leg Past Surgical History: Back Surgery, Section, Hysterectomy, Joint Replacement Additional Past Surgical History / Comment(s): x2, lt hip Past Anesthesia/Blood Transfusion Reactions: No Reported Reaction Past Psychological History: Anxiety, Bipolar, Depression, Schizoaffective Disorder Smoking Status: Current every day smoker Past Alcohol Use History: Occasional Past Drug Use History: None Reported General Exam Limitations: no limitations Course Vital Signs 12/26/19 12/26/19 16:05 19:15 Temperature 97.8 F 97.7 F Pulse Rate 62 69 Respiratory 20 18 Rate Blood Pressure 106/73 117/73 O2 Sat by Pulse 99 100 Oximetry Medical Decision Making - Medical Decision Making Upon arrival the patient was placed into room 31. A thorough history and physical exam was performed. Laboratory studies were conducted and the patient had an ultrasound performed. Ultrasound was positive for recent however no signs of acute cholecystitis on imaging. No elevation of the patient's bladder enzymes or white count. I discussed diagnosis, differential and treatment options. This time the patient will be discharged home. I recommend that she follow up with her primary care doctor and have HIDA scan performed. I also recommend further workup for her fatigue. The patient understood this. If she has any new or worsening symptoms return to the emergency room. Patient was then discharged home in stable condition - Lab Data Result diagrams: 12/26/19 17:28 12/26/19 17:28 Lab Results 12/26/19 12/26/19 12/26/19 Range/Units 17:28 17:28 17:28 WBC 6.4 (3.8-10.6) k/uL RBC 4.81 (3.80-5.40) m/uL Hgb 13.9 (11.4-16.0) gm/dL Hct 42.2 (34.0-46.0) % MCV 87.7 (80.0-100.0) fL MCH 28.8 (25.0-35.0) pg MCHC 32.8 (31.0-37.0) g/dL RDW 12.3 (11.5-15.5) % Plt Count 303 (150-450) k/uL Neutrophils % 52 % Lymphocytes % 39 % Monocytes % 5 % Eosinophils % 2 % Basophils % 1 % Neutrophils # 3.3 (1.3-7.7) k/uL Lymphocytes # 2.5 (1.0-4.8) k/uL Monocytes # 0.3 (0-1.0) k/uL Eosinophils # 0.1 (0-0.7) k/uL Basophils # 0.1 (0-0.2) k/uL Sodium 134 L (137-145) mmol/L Potassium 4.3 (3.5-5.1) mmol/L Chloride 103 (98-107) mmol/L Carbon Dioxide 25 (22-30) mmol/L Anion Gap 6 mmol/L BUN 12 (7-17) mg/dL Creatinine 0.95 (0.52-1.04) mg/dL Est GFR (CKD-EPI)AfAm 83 (>60 ml/min/1.73 sqM) Est GFR (CKD-EPI)NonAf 72 (>60 ml/min/1.73 sqM) Glucose 111 H (74-99) mg/dL Plasma Lactic Acid Grzegorz (0.7-2.0) mmol/L Calcium 9.3 (8.4-10.2) mg/dL Total Bilirubin 0.2 (0.2-1.3) mg/dL AST 18 (14-36) U/L ALT 12 (4-34) U/L Alkaline Phosphatase 65 (38-126) U/L Total Protein 6.4 (6.3-8.2) g/dL Albumin 3.8 (3.5-5.0) g/dL Lipase 35 (23-300) U/L Urine Color Light Yellow Urine Appearance Clear (Clear) Urine pH 6.0 (5.0-8.0) Ur Specific Clayton 1.007 (1.001-1.035) Urine Protein Negative (Negative) Urine Glucose (UA) Negative (Negative) Urine Ketones Negative (Negative) Urine Blood Negative (Negative) Urine Nitrite Negative (Negative) Urine Bilirubin Negative (Negative) Urine Urobilinogen <2.0 (<2.0) mg/dL Ur Leukocyte Esterase Negative (Negative) 12/26/19 Range/Units 17:28 WBC (3.8-10.6) k/uL RBC (3.80-5.40) m/uL Hgb (11.4-16.0) gm/dL Hct (34.0-46.0) % MCV (80.0-100.0) fL MCH (25.0-35.0) pg MCHC (31.0-37.0) g/dL RDW (11.5-15.5) % Plt Count (150-450) k/uL Neutrophils % % Lymphocytes % % Monocytes % % Eosinophils % % Basophils % % Neutrophils # (1.3-7.7) k/uL Lymphocytes # (1.0-4.8) k/uL Monocytes # (0-1.0) k/uL Eosinophils # (0-0.7) k/uL Basophils # (0-0.2) k/uL Sodium (137-145) mmol/L Potassium (3.5-5.1) mmol/L Chloride (98-107) mmol/L Carbon Dioxide (22-30) mmol/L Anion Gap mmol/L BUN (7-17) mg/dL Creatinine (0.52-1.04) mg/dL Est GFR (CKD-EPI)AfAm (>60 ml/min/1.73 sqM) Est GFR (CKD-EPI)NonAf (>60 ml/min/1.73 sqM) Glucose (74-99) mg/dL Plasma Lactic Acid Grzegorz 1.6 (0.7-2.0) mmol/L Calcium (8.4-10.2) mg/dL Total Bilirubin (0.2-1.3) mg/dL AST (14-36) U/L ALT (4-34) U/L Alkaline Phosphatase (38-126) U/L Total Protein (6.3-8.2) g/dL Albumin (3.5-5.0) g/dL Lipase (23-300) U/L Urine Color Urine Appearance (Clear) Urine pH (5.0-8.0) Ur Specific Clayton (1.001-1.035) Urine Protein (Negative) Urine Glucose (UA) (Negative) Urine Ketones (Negative) Urine Blood (Negative) Urine Nitrite (Negative) Urine Bilirubin (Negative) Urine Urobilinogen (<2.0) mg/dL Ur Leukocyte Esterase (Negative) - EKG Data EKG Comments: EKG demonstrates a sinus tachycardia with a ventricular rate of 59. IN interval 174. QRS 86. QTC of 437. No acute ST segment elevations or depressions Disposition Clinical Impression: Abdominal pain Disposition: HOME SELF-CARE Condition: Stable Instructions (If sedation given, give patient instructions): Abdominal Pain (ED) Additional Instructions: I think you need a HIDA scan and an EGD for further evaluation of your abdominal pain. Eat low-fat foods. Return to the emergency room for any new or worsening symptoms Your doctor should do a further workup for weakness to include B12, iron, TSH and vit d studies. Is patient prescribed a controlled substance at d/c from ED?: No Referrals: Dayday Saavedra MD [Primary Care Provider] - 1-2 days Time of Disposition: 19:01
[2019-12-26 19:16] VITALS: BP 117/73; PULSE 69; RESP 18; TEMP 97.7
== END 2019-12-26 19:15 | disposition home or self-care (01) ==
LOC: EC 16:02
DX: R10.11 Right upper quadrant pain (principal); R53.83 Other fatigue; F17.200 Nicotine dependence, unspecified, uncomplicated; Z86.14 Personal history of Methicillin resistant Staphylococcus aureus infection; Z90.710 Acquired absence of both cervix and uterus; Z96.60 Presence of unspecified orthopedic joint implant
CPT/HCPCS: 36415; 93005; 80053; 83605; 83690; 85025; 81003; 76705; 99284; 96374; 96361; J2405

== ENCOUNTER 2020-01-29 10:47 | Emergency (ER) | payer OTHER ==
[2020-01-29 11:09] VITALS: BP 151/96; PULSE 107; RESP 20; TEMP 98.2
[2020-01-29] MEDS ORDERED: PALIPERIDONE IM 156 MG/ML SYG IM STA (12:24)
--- NOTE | 2020-01-29 12:27 | ED ---
Psych HPI - General Chief Complaint: Psychiatric Symptoms Stated Complaint: Mental Health Source: patient Mode of arrival: ambulatory - History of Present Illness Initial Comments: Patient is a 49-year-old female with past history of schizophrenia who presents to the emergency department requesting medication administration. Father is at bedside and provides majority of the history however he himself is a poor historian. He states that the patient missed her injection 3 days ago that she normally gets. Father cannot tell me when the patient last got her injection for what the medication is. He states that her behavior has been or anxious and this is what notified him that she had missed her injection. Patient arrives and denies any suicidal or homicidal thoughts. She has a flat affect however does not appear anxious or agitated for me. Patient answers all questions appropriately. Admits that she did miss her shots and is agreeable to take it. Denies visual or auditory hallucinations. No other alleviating, precipitating or modifying factors - Related Data Previous Rx's Medication Instructions Recorded Acetaminophen Tab [Tylenol] 650 mg PO Q4HR PRN tab 07/31/19 Loratadine [Claritin] 10 mg PO DAILY 30 Days tab 07/31/19 Nicotine 21Mg/24Hr Patch [Habitrol] 1 patch TRANSDERM DAILY 14 Days 07/31/19 patch Paliperidone IM [Invega Sustenna] 156 mg IM ONCE #1 syr 07/31/19 Paliperidone IM [Invega Sustenna] 156 mg IM ONCE #1 syr 07/31/19 Paliperidone [Invega] 3 mg PO DAILY 3 Days tab.er.24 07/31/19 Paliperidone [Invega] 6 mg PO DAILY 3 Days tab.er.24 07/31/19 traZODone HCL [Desyrel] 50 mg PO HS 30 Days tab 07/31/19 Allergies Allergy/AdvReac Type Severity Reaction Status Date / Time No Known Allergies Allergy Verified 01/29/20 11:09 Review of Systems ROS Statement: Those systems with pertinent positive or pertinent negative responses have been documented in the HPI. ROS Other: All systems not noted in ROS Statement are negative. Past Medical History Past Medical History: Asthma Additional Past Medical History / Comment(s): "I don't know" History of Any Multi-Drug Resistant Organisms: MRSA Date of last positivie culture/infection: 03/13/19 MDRO Source:: Left Leg Past Surgical History: Back Surgery, Section, Hysterectomy, Joint Replacement Additional Past Surgical History / Comment(s): x2, lt hip Past Anesthesia/Blood Transfusion Reactions: No Reported Reaction Past Psychological History: Anxiety, Bipolar, Depression, Schizoaffective Disorder Smoking Status: Current every day smoker Past Alcohol Use History: Occasional Past Drug Use History: None Reported General Exam Limitations: no limitations Course Vital Signs 01/29/20 01/29/20 01/29/20 11:06 12:09 12:56 Temperature 98.2 F 98.2 F Pulse Rate 107 H 107 H Respiratory 20 20 20 Rate Blood Pressure 151/96 151/96 O2 Sat by Pulse 98 98 Oximetry Medical Decision Making - Medical Decision Making Upon arrival he is placed into room 14. We do called the EPS nurse as the father is unaware of the patient's medications. They do confirm that the patient is on Invega 156 mg. as medication is administered to the patient. I did discuss the treatment plan with the patient's father. He does request that the patient remained hospitalized for one day as he states he has had difficulty caring for her because he had back surgery. Patient is not suicidal, homicidal or hallucinating. Patient has appropriate behavior without agitation. She does not difficult to control in the emergency department. I informed the father that the patient does not demonstrate any signs that she requires hospitalization. Father does not seem with this. Requesting some time off as he is trying to recover from surgery however I informed him that unfortunately we cannot keep the patient the emergency Department as she does not demonstrate any need for inpatient admission. Patient is not a harm to herself or anyone else. Patient will be discharged home at this time and is instructed to follow up for her regularly scheduled injections. Patient agreed to this and was discharged home in stable condition Disposition Clinical Impression: Schizophrenia Disposition: HOME SELF-CARE Condition: Stable Instructions (If sedation given, give patient instructions): Schizophrenia (ED) Additional Instructions: Please follow-up with your psychiatrist at your regularly scheduled appointment. Return to the emergency room for any new or worsening symptoms Is patient prescribed a controlled substance at d/c from ED?: No Referrals: None,Stated [Primary Care Provider] - 1-2 days Time of Disposition: 12:27
== END 2020-01-29 13:01 | disposition home or self-care (01) ==
LOC: EC 10:47
DX: F20.9 Schizophrenia, unspecified (principal); F17.200 Nicotine dependence, unspecified, uncomplicated
CPT/HCPCS: 82075; 99283; 96372; J2426

== ENCOUNTER 2020-02-15 07:46 | Inpatient (IN) | payer MEDICAID, OTHER ==
--- NOTE | 2020-02-15 07:55 | ED ---
Psych HPI - General Stated Complaint: EPS eval Time Seen by Provider: 02/15/20 07:46 Source: patient, EMS, old records reviewed Mode of arrival: EMS - History of Present Illness Initial Comments: This is a 49-year-old female history of schizophrenia history of psychosis with history of gallbladder issues in the past who is brought in by EMS today for psychiatric evaluation. Apparently she has been hearing voices and acting erratically. No drugs or alcohol reported at this time. Patient was uncooperative with exam by both EMS personnel and myself and did refuse direct contact physical exam. Per paramedics patient's father who is her legal guardian is pending arrival to fill out a petition. Patient herself says she is very edgy she does get shots monthly for the schizophrenia last was at [facility] of this year. MD Complaint: other - Related Data Home Medications Medication Instructions Recorded Confirmed Albuterol Sulfate [Ventolin HFA] 1 - 2 puff INHALATION Q6H PRN 02/15/20 02/15/20 Buprenorphine HCl/Naloxone HCl 2 film SL DAILY 02/15/20 02/15/20 [Suboxone 8 mg-2 mg Sl Film] Cyclobenzaprine [Flexeril] 10 mg PO BID PRN 02/15/20 02/15/20 Naloxone (Mdv) [Narcan (Mdv)] 4 mg IM ONCE PRN 02/15/20 02/15/20 cloNIDine HCL [Catapres] 0.1 mg PO BID 02/15/20 02/15/20 Previous Rx's Medication Instructions Recorded Acetaminophen Tab [Tylenol] 650 mg PO Q4HR PRN tab 07/31/19 Loratadine [Claritin] 10 mg PO DAILY 30 Days tab 07/31/19 Nicotine 21Mg/24Hr Patch [Habitrol] 1 patch TRANSDERM DAILY 14 Days 07/31/19 patch Paliperidone IM [Invega Sustenna] 156 mg IM ONCE #1 syr 07/31/19 Paliperidone [Invega] 3 mg PO DAILY 3 Days tab.er.24 07/31/19 Paliperidone [Invega] 6 mg PO DAILY 3 Days tab.er.24 07/31/19 traZODone HCL [Desyrel] 50 mg PO HS 30 Days tab 07/31/19 Allergies Allergy/AdvReac Type Severity Reaction Status Date / Time No Known Allergies Allergy Verified 02/15/20 09:45 Review of Systems ROS Statement: Those systems with pertinent positive or pertinent negative responses have been documented in the HPI. ROS Other: All systems not noted in ROS Statement are negative. Past Medical History Past Medical History: Asthma Additional Past Medical History / Comment(s): "I don't know" History of Any Multi-Drug Resistant Organisms: MRSA Date of last positivie culture/infection: 03/13/19 MDRO Source:: Left Leg Past Surgical History: Back Surgery, Section, Hysterectomy, Joint Replacement Additional Past Surgical History / Comment(s): x2, lt hip Past Anesthesia/Blood Transfusion Reactions: No Reported Reaction Past Psychological History: Anxiety, Bipolar, Depression, Schizoaffective Disorder Smoking Status: Current every day smoker Past Alcohol Use History: Occasional Past Drug Use History: None Reported General Exam - General Exam Comments Initial Comments: This is a well-developed well-nourished awake alert oriented 3 female General appearance: alert, anxious Head exam: Present: atraumatic, normal inspection Eye exam: Present: normal appearance ENT exam: Present: other (No obvious abnormalities) Neck exam: Present: normal inspection, full ROM Respiratory exam: Present: other (No audible wheezing) Cardiovascular Exam: Present: other (Deferred) GI/Abdominal exam: Present: other (Deferred) Extremities exam: Present: normal inspection, full ROM Back exam: Present: full ROM Neurological exam: Present: alert, oriented X3. Absent: motor sensory deficit (On observation) Psychiatric exam: Present: anxious, flat affect, manic Skin exam: Present: normal color Medical Decision Making - Medical Decision Making The patient was perseverating word God and a menstruating flight of ideas. Patient will be admitted she will require some sedation. Disposition Clinical Impression: Acute psychosis, Schizophrenia, Noncompliance Disposition: TRANSFER TO PSYCH HOSP/UNIT Condition: Fair Referrals: None,Stated [Primary Care Provider] - 1-2 days
[2020-02-15] MEDS ORDERED: HALOPERIDOL LACTATE 5 MG/ML 1 ML VIAL IM STA (12:07)
[2020-02-15] MEDS ORDERED: diphenhydrAMINE 50 MG/ML 1 ML VIAL IM STA ×2 (12:07→14:44)
[2020-02-15] MEDS ORDERED: diazePAM 5 MG TAB PO STA (13:38)
[2020-02-15] MEDS ORDERED: MAG HYDROX/AL HYDROX/SIMETH 30 ML CUP PO PRN (14:37)
[2020-02-15] MEDS ORDERED: MAGNESIUM HYDROXIDE 2,400 MG/10 ML CUP PO PRN (14:37)
[2020-02-15] MEDS ORDERED: ALBUTEROL HFA INHALER INHALATION PRN (14:40)
[2020-02-15] MEDS ORDERED: HALOPERIDOL LACTATE 5 MG/ML 1 ML VIAL IM PRN (14:44)
[2020-02-15] MEDS ORDERED: diphenhydrAMINE 50 MG/ML 1 ML VIAL IM PRN (14:50)
[2020-02-15] MEDS: LORazepam 1 MG TAB PO PRN (19:04)
[2020-02-15] MEDS: cloNIDine HCL 0.1 MG TAB PO SCH (23:21)
[2020-02-15] MEDS: traZODone HCL 50 MG TAB PO SCH (23:21)
--- NOTE | 2020-02-16 02:54 | P.PN ---
Progress Note - Text Progress Note Date: 02/15/20 despite attempting multiple times, patient was not awake enough to participate in evaluation
[2020-02-16 08:40] LABS: Basophils # (A) 0.1 k/uL (0-0.2); Basophils % (A) 1 %; Eosinophils # (A) 0.2 k/uL (0-0.7); Eosinophils % (A) 3 %; HCT 44.4 % (34.0-46.0); HGB 15.4 gm/dL (11.4-16.0); Lymphocytes # (A) 2.2 k/uL (1.0-4.8); Lymphocytes % (A) 35 %; MCH 29.3 pg (25.0-35.0); MCHC 34.6 g/dL (31.0-37.0); MCV 84.7 fL (80.0-100.0); Mean Platelet Volume 6.7; Monocytes # (A) 0.4 k/uL (0-1.0); Monocytes % (A) 6 %; Neutrophils # (A) 3.3 k/uL (1.3-7.7); Neutrophils % (A) 53 %; Platelet Count 251 k/uL (150-450); RBC 5.24 m/uL (3.80-5.40); RDW 12.5 % (11.5-15.5); WBC 6.3 k/uL (3.8-10.6)
[2020-02-16] MEDS: LORATADINE 10 MG TAB PO SCH (08:40)
[2020-02-16] MEDS: NICOTINE 21MG/24HR PATCH TRANSDERM SCH (08:40)
[2020-02-16] MEDS: cloNIDine HCL 0.1 MG TAB PO SCH ×2 (08:41→20:15)
[2020-02-16] MEDS: LORazepam 1 MG TAB PO PRN ×3 (08:41→22:39)
[2020-02-16 08:50] LABS: Albumin 4.1 g/dL (3.5-5.0); Calcium 9.4 mg/dL (8.4-10.2); Potassium 4.4 mmol/L (3.5-5.1); Total Bilirubin 0.8 mg/dL (0.2-1.3); Total Protein 6.7 g/dL (6.3-8.2)
[2020-02-16] MEDS: PALIPERIDONE 3 MG TAB.ER.24 PO SCH (12:08)
--- NOTE | 2020-02-16 12:50 | P.HP ---
Psychiatric H&P - . H&P Date: 02/16/20 History & Physical: Allergies Allergy/AdvReac Type Severity Reaction Status Date / Time No Known Allergies Allergy Verified 02/15/20 16:43 Vital Signs Temp 97.7 F 02/16/20 06:16 Pulse 90 02/16/20 06:16 Resp 18 02/16/20 06:16 BP 110/65 02/16/20 06:16 Pulse Ox 97 02/16/20 06:16 Intake & Output 02/15/20 02/16/20 02/16/20 18:59 06:59 18:59 Weight 70.987 kg Laboratory Last Values WBC 6.3 k/uL (3.8-10.6) 02/16/20 08:09 RBC 5.24 m/uL (3.80-5.40) 02/16/20 08:09 Hgb 15.4 gm/dL (11.4-16.0) 02/16/20 08:09 Hct 44.4 % (34.0-46.0) 02/16/20 08:09 MCV 84.7 fL (80.0-100.0) 02/16/20 08:09 MCH 29.3 pg (25.0-35.0) 02/16/20 08:09 MCHC 34.6 g/dL (31.0-37.0) 02/16/20 08:09 RDW 12.5 % (11.5-15.5) 02/16/20 08:09 Plt Count 251 k/uL (150-450) 02/16/20 08:09 MPV 6.7 02/16/20 08:09 Neutrophils % 53 % 02/16/20 08:09 Lymphocytes % 35 % 02/16/20 08:09 Monocytes % 6 % 02/16/20 08:09 Eosinophils % 3 % 02/16/20 08:09 Basophils % 1 % 02/16/20 08:09 Neutrophils # 3.3 k/uL (1.3-7.7) 02/16/20 08:09 Lymphocytes # 2.2 k/uL (1.0-4.8) 02/16/20 08:09 Monocytes # 0.4 k/uL (0-1.0) 02/16/20 08:09 Eosinophils # 0.2 k/uL (0-0.7) 02/16/20 08:09 Basophils # 0.1 k/uL (0-0.2) 02/16/20 08:09 Sodium 139 mmol/L (137-145) 02/16/20 08:09 Potassium 4.4 mmol/L (3.5-5.1) 02/16/20 08:09 Chloride 109 mmol/L (98-107) H 02/16/20 08:09 Carbon Dioxide 25 mmol/L (22-30) 02/16/20 08:09 Anion Gap 5 mmol/L 02/16/20 08:09 BUN 12 mg/dL (7-17) 02/16/20 08:09 Creatinine 0.90 mg/dL (0.52-1.04) 02/16/20 08:09 Est GFR (CKD-EPI)AfAm 89 (>60 ml/min/1.73 sqM) 02/16/20 08:09 Est GFR (CKD-EPI)NonAf 77 (>60 ml/min/1.73 sqM) 02/16/20 08:09 Glucose 103 mg/dL (74-99) H 02/16/20 08:09 Calcium 9.4 mg/dL (8.4-10.2) 02/16/20 08:09 Total Bilirubin 0.8 mg/dL (0.2-1.3) 02/16/20 08:09 AST 24 U/L (14-36) 02/16/20 08:09 ALT 23 U/L (4-34) 02/16/20 08:09 Alkaline Phosphatase 73 U/L (38-126) 02/16/20 08:09 Total Protein 6.7 g/dL (6.3-8.2) 02/16/20 08:09 Albumin 4.1 g/dL (3.5-5.0) 02/16/20 08:09 Triglycerides 147 mg/dL (<150) 02/16/20 08:09 Cholesterol 198 mg/dL (<200) 02/16/20 08:09 LDL Cholesterol, Calc 130 mg/dL (0-99) H 02/16/20 08:09 HDL Cholesterol 39 mg/dL (40-60) L 02/16/20 08:09 TSH 0.742 mIU/L (0.465-4.680) 02/16/20 08:09 Coronavirus (PCR) Not Detected (Not Detectd) 02/15/20 13:17 02/16/20 11:32 IDENTIFYING DATA: Patient is a 49-year-old female who is and lives with her father and has 2 boys and collects Social Security. HPI: Patient presented to the hospital via EMS for psychiatric evaluation. Patient was last admitted on to the mental health unit in July 2019 and was pl aced on Invega Sustenna at that time for psychosis and noncompliance. Patient admitted in the ER that she was hearing voices and was acting erratically and uncooperative in the ER. Patient apparently had her last dose of Invega Sustenna on . Patient was petitioned by EPS nurse who stated that patient is a "potential harm to self and/or others" and also has been noncompliant with her medications and treatment. Patient was seen up on the unit and appeared to be having poor hygiene and grooming. She did appear to be confused have poor insight and judgment. She states that she is feeling "agitated at home". She states that she was not able to "handle my nerves and they got really bad". She was preoccupied with her anxiety and was also responding to internal stimuli during the interview. She states that she's been sleeping poorly at home has been noncompliant with her oral medications. She denied any depression today however did complain of severe anxiety. She denied any symptoms of manic episode including increasing goal-directed activity and increase in energy. Patient denies any suicidal or homicidal ideations intent or plan. At this time patient denies any auditory or visual hallucinations. Patient admits to using cigarettes daily. UDS pending. PAST PSYCHIATRIC HISTORY: Patient states that she has a history of schizoaffective disorder her last admission to the mental health unit was July 2019. Patient was previously on Rexulti, Effexor, BuSpar, Klonopin and Vistaril and most recently on trazodone and Invega Sustenna. Patient was supposed to be getting monthly Invega Sustenna 156 mg IM however unsure as to when the last dose was by [facility]. She denies any history of suicide attempts. PMH: Seizure disorder and asthma ALLERGIES: as per EMR CHEMICAL DEPENDENCY HISTORY: as per HPI FAMILY PSYCHIATRIC/SUBSTANCE USE HISTORY: denies SOCIAL HISTORY: Patient was born and raised in [place] and moved to [place]. She currently lives with her father is divorce has to boys. 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 She states that she did some college. She denied any legal problems at this time. MENTAL STATUS EXAM: General Appearance: Patient appears to be stated age is alert, confused and bizarre. Difficult to redirect at times. Patient appears to have poor hygiene and grooming. Behavior: Patient is seated without any agitated behavior. Bizarre and confused. Responding to internal stimuli. Speech: Patient's speech is fluent and nonpressured. Mood/Affect: Patient reports their mood is "anxious", affect is congruent and constricted. Suicidality/Homicidality: Patient denies having any homicidal ideation intent or plan. Denies any suicidal ideations intent or plan Perceptions: Patient denies any visual hallucinations and denies any auditory hallucinations Though content/process: Poverty of content, vague. Does not endorse any paranoia or delusions. Preoccupied with her anxiety. Memory and concentration: AOX2, does not know today's date, poor memory recall, poor fund of knowledge and poor abstraction. Cannot spell "WORLD" backwards Judgment and insight: poor STRENGTHS/WEAKNESSES: strength is that patient is resilient. Weakness is that patient has poor judgment INTELLECT: average IMPRESSIONS: Schizoaffective disorder unspecified Anxiety disorder unspecified Nicotine dependence PLAN: -Patient is admitted under involuntary status to MHU for stabilization of psychiatric symptoms and safety. A second certification was completed and along with petition will be filed for court. Patient did sign medication consent form and was placed in chart. -Medications : Will start patient on paliperidone by mouth 3 mg daily for psychosis. Due to patient's noncompliance and poor insight, we'll likely transition patient back onto Invega Sustenna prior to discharge. Trazodone 50 mg daily at bedtime for insomnia/mood. -Haldol IM and Benadryl IM PRN for agitation/aggression -Patient was informed of the risks, benefits and side effects of the medication and patient verbally consented to taking the medications. Patient signed med consent form and was placed in chart. -Internal Medicine consult to perform medical evaluation and physical. -NRT - nicotine patch -SW on board for discharge planning. Encourage patient to participate in groups to work on coping skills. Will await court hearing date and deferral date. 02/16/20 11:36 02/16/20 12:44 02/16/20 12:50
[2020-02-16 14:11] LABS: Hemoglobin A1C 5.2 % (4.0-6.0)
[2020-02-16] MEDS: traZODone HCL 50 MG TAB PO SCH (20:15)
[2020-02-17] MEDS: LORazepam 1 MG TAB PO PRN ×3 (05:42→20:33)
[2020-02-17 05:44] VITALS: RESP 16
[2020-02-17] MEDS: NICOTINE 21MG/24HR PATCH TRANSDERM SCH (08:06)
[2020-02-17] MEDS: LORATADINE 10 MG TAB PO SCH (08:07)
[2020-02-17] MEDS: PALIPERIDONE 3 MG TAB.ER.24 PO SCH ×2 (08:07→20:31)
[2020-02-17] MEDS: cloNIDine HCL 0.1 MG TAB PO SCH ×2 (08:07→20:31)
[2020-02-17 11:34] LABS: Amphetamine Screen,Urine Detected (NotDetected); Barbiturate Screen,Urine Not Detected (NotDetected); Benzodiazepines Screen,Urine Detected (NotDetected); Cocaine Screen,Urine Not Detected (NotDetected); Methadone Screen, Urine Not Detected (NotDetected); Opiate Screen,Urine Not Detected (NotDetected); Oxycodone Screen, Urine Not Detected (NotDetected); Phencyclidine Screen,Urine Not Detected (NotDetected); Tricyclic Antidepressant,Urine Not Detected (NotDetected); Urn Cannabinoid Scrn Not Detected (NotDetected)
--- NOTE | 2020-02-17 13:46 | P.PN ---
Progress Note - Text Progress Note Date: 02/17/20 Interval History: Patient was seen wandering the hallways and was anxious to speak to resume writer jelani vale. she was directable and agreeable to speak with resume writer in the office. Patient appears to have mild improvement in her hygiene and grooming. She claims that she has been feeling fairly anxious and states that she is now going through opiate withdrawal as she is not on her Suboxone. She states that she is not able to have it brought in and was agreeable to be started on methadone taper. She claims that she has been having cramping in her stomach feeling restless and anxious and having cravings. She claims that her mood is "okay" however was preoccupied with her anxiety. She asked multiple times about having a benzodiazepine added to her medication regimen. She states that she's been eating her meals and states that she slept poorly last night. She is agreeable to have her trazodone increased for tonight. At this time patient denies any suicidal or homical ideations, intent or plan. Patient denies any auditory, visual hallucinations. Patient denies any side effects from the medications and has been compliant with meds. Mental Status Exam: General Appearance: Patient appears to be stated age is alert, less confused today, attempts to cooperate. Patient appears to have mildly improving hygiene and grooming. Behavior: Patient is seated without any agitated behavior. Bizarre and confused, improving mildly. Attempts to cooperate Speech: Patient's speech is fluent and nonpressured. Mood/Affect: Patient reports their mood is preoccupied with anxiety and denies any depression today, affect is congruent Suicidality/Homicidality: Patient denies having any homicidal ideation intent or plan. Denies any suicidal ideations intent or plan Perceptions: Patient denies any visual hallucinations and denies any auditory hallucinations Though content/process: Poverty of content, vague. Does not endorse any paranoia or delusions. Preoccupied with her anxiety and her medications. Memory and concentration: AOX2, does not know today's date. improving attention span Judgment and insight: poor, improving mildly Assessment Schizoaffective disorder unspecified Anxiety disorder unspecified Nicotine dependence Plan: -Patient continues to meet criteria for inpatient psychiatric admission for symptom stabilization and safety. Currently awaiting deferral and full court hearing date. -Medications: increased paliperidone by mouth 3 mg twice a day for psychosis. Patient will likely need to be increased onto a higher dose of Invega Sustenna prior to discharge. Increased trazodone 100 mg daily -added Methadone 20mg daily with plan to taper off as patient was previously on suboxone as an outpatient and cannot have this on the inpt unit. -When necessary Ativan and Haldol for agitation/aggression. -NRT - nicotine patch -SW on board for discharge planning. Encouraged the patient to participate in milieu. Will await court hearing date and deferral date.
[2020-02-17] MEDS: METHADONE 10 MG TAB PO SCH (13:50)
[2020-02-17] MEDS ORDERED: traZODone HCL 100 MG TAB PO SCH (21:00)
[2020-02-18] MEDS: NICOTINE 21MG/24HR PATCH TRANSDERM SCH (07:40)
[2020-02-18] MEDS: METHADONE 10 MG TAB PO SCH (07:40)
[2020-02-18] MEDS: cloNIDine HCL 0.1 MG TAB PO SCH ×2 (07:40→20:41)
[2020-02-18] MEDS: PALIPERIDONE 3 MG TAB.ER.24 PO SCH (07:40)
[2020-02-18] MEDS: LORATADINE 10 MG TAB PO SCH (07:40)
[2020-02-18] MEDS: LORazepam 1 MG TAB PO PRN ×2 (07:40→16:28)
--- NOTE | 2020-02-18 09:18 | P.PN ---
Progress Note - Text Progress Note Date: 02/18/20 Interval History: Patient was seen lying in her bed this morning and was directable and agreeable to speak with web content writer. Patient appears to be mildly less confused today however continues to be preoccupied with her medications and obtaining benzodiazepines and more methadone. Patient was medication seeking. She continues to state that she does have anxiety and states that the only thing that helps her is Ativan. Patient is not willing to try any other medication option for her anxiety. She states that her mood is "good" and denies any depression today. She claims that her opiate withdrawal symptoms have improved since yesterday. She states that she's been eating her meals and states that she slept better last night. She was not endorsing any overt delusions or paranoia today. At this time patient denies any suicidal or homical ideations, intent or plan. Patient denies any auditory, visual hallucinations. Patient denies any side effects from the medications and has been compliant with meds. Mental Status Exam: General Appearance: Patient appears to be stated age is alert, less confused today, attempts to cooperate. Patient appears to have mildly improving hygiene and grooming. Behavior: Patient is seated without any agitated behavior. Attempts to cooperate, less confused today. Med seeking Speech: Patient's speech is fluent and nonpressured. Mood/Affect: Patient reports their mood is preoccupied with anxiety and denies any depression today, affect is congruent Suicidality/Homicidality: Patient denies having any homicidal ideation intent or plan. Denies any suicidal ideations intent or plan Perceptions: Patient denies any visual hallucinations and denies any auditory hallucinations Though content/process: More logical and goal oriented. Does not endorse any paranoia or delusions. Preoccupied with her anxiety and her medications. Memory and concentration: AOX2, does not know today's date. improving attention span Judgment and insight: Chronically poor, improving mildly Assessment Schizoaffective disorder unspecified Anxiety disorder unspecified Nicotine dependence Plan: -Patient continues to meet criteria for inpatient psychiatric admission for symptom stabilization and safety. Currently awaiting deferral which is set for 02/19/2020 -Medications: increased paliperidone by mouth 3 mg daily + 6mg qhs for psychosis. Patient will likely need to be increased onto a higher dose of Invega Sustenna prior to discharge. decreased trazodone 50 mg nightly for insomnia/mood -decreased Methadone 15 mg daily with plan to taper off as patient was previously on suboxone as an outpatient and cannot have this on the inpt unit. check ekg -When necessary Ativan and Haldol for agitation/aggression. -NRT - nicotine patch -SW on board for discharge planning. Encouraged the patient to participate in milieu. Will await court hearing date and deferral date set for 02/19/2020
[2020-02-18] MEDS: PALIPERIDONE 6 MG TAB.ER.24 PO SCH (20:41)
[2020-02-18] MEDS: traZODone HCL 50 MG TAB PO SCH (20:41)
[2020-02-19] MEDS: NICOTINE 21MG/24HR PATCH TRANSDERM SCH (07:47)
[2020-02-19] MEDS: LORATADINE 10 MG TAB PO SCH (07:48)
[2020-02-19] MEDS: METHADONE 5 MG TAB PO SCH (07:48)
[2020-02-19] MEDS: PALIPERIDONE 3 MG TAB.ER.24 PO SCH (07:48)
[2020-02-19] MEDS: LORazepam 1 MG TAB PO PRN (07:48)
[2020-02-19] MEDS: cloNIDine HCL 0.1 MG TAB PO SCH ×2 (08:29→20:58)
[2020-02-19] MEDS: ACETAMINOPHEN TAB 325 MG TAB PO PRN (08:30)
[2020-02-19] MEDS ORDERED: hydrOXYzine pamoate 25 MG CAP PO PRN (11:05)
--- NOTE | 2020-02-19 11:05 | P.PN ---
Progress Note - Text Progress Note Date: 02/19/20 Interval History: Patient was seen lying in her bed this morning and was directable and agreeable to speak with credit underwriter in the office today. Patient appears to be less confused today and appeared to have improvement in her hygiene and grooming. She states that she is feeling better in terms of her mood however continues to speak about her anxiety and her medications. She claims that she is feeling calmer on the medications and is agreeable to keep on taking them. She states that she did sp eak with her tram operator over the phone who offered her a deferral however patient states that "I want other options" and refused to agreed to the treatment. Patient is not willing to try any other medication option for her anxiety. She states that her mood is "good" and denies any depression today. She states that she's been eating her meals and states that she slept better last night. She was not endorsing any overt delusions or paranoia today. At this time patient denies any suicidal or homical ideations, intent or plan. Patient denies any auditory, visual hallucinations. Patient denies any side effects from the medications and has been compliant with meds. Mental Status Exam: General Appearance: Patient appears to be stated age is alert, less confused today, attempts to cooperate. Patient appears to have mildly improving hygiene and grooming. Behavior: Patient is seated without any agitated behavior. Attempts to cooperate, less confused today. Speech: Patient's speech is fluent and nonpressured. Mood/Affect: Patient reports their mood and anxiety are mildly improving, affect is congruent and constricted Suicidality/Homicidality: Patient denies having any homicidal ideation intent or plan. Denies any suicidal ideations intent or plan Perceptions: Patient denies any visual hallucinations and denies any auditory hallucinations Though content/process: More logical and goal oriented. Does not endorse any paranoia or delusions. Preoccupied with her anxiety and her medications. Memory and concentration: AOX2, does not know today's date. improving attention span Judgment and insight: Chronically poor, improving mildly Assessment Schizoaffective disorder unspecified Anxiety disorder unspecified Nicotine dependence Plan: -Patient continues to meet criteria for inpatient psychiatric admission for symptom stabilization and safety. Currently awaiting deferral which is set for 02/19/2020 -Medications: Continue with paliperidone by mouth 3 mg daily + 6mg qhs for psychosis. Patient will be due for her next Invega Sustenna dose of 234 mg IM on 02/25/2020. Continue with trazodone 50 mg nightly for insomnia/mood. -Continue with Methadone 15 mg daily with plan to taper off as patient was previously on suboxone as an outpatient and cannot have this on the inpt unit -When necessary Ativan and Haldol for agitation/aggression. -NRT - nicotine patch -SW on board for discharge planning. Encouraged the patient to participate in milieu. Patient did not defer and full court hearing is scheduled for 03/10/2019.
[2020-02-19] MEDS: LORazepam 0.5 MG TAB PO PRN (15:23)
[2020-02-19] MEDS: traZODone HCL 50 MG TAB PO SCH (20:58)
[2020-02-19] MEDS: PALIPERIDONE 6 MG TAB.ER.24 PO SCH (20:58)
[2020-02-20] MEDS: LORazepam 0.5 MG TAB PO PRN (05:58)
[2020-02-20] MEDS: NICOTINE 21MG/24HR PATCH TRANSDERM SCH (07:59)
[2020-02-20] MEDS: PALIPERIDONE 3 MG TAB.ER.24 PO SCH (08:00)
[2020-02-20] MEDS: ACETAMINOPHEN TAB 325 MG TAB PO PRN (08:00)
[2020-02-20] MEDS: METHADONE 5 MG TAB PO SCH (08:00)
[2020-02-20] MEDS: LORATADINE 10 MG TAB PO SCH (08:00)
[2020-02-20] MEDS: cloNIDine HCL 0.1 MG TAB PO SCH (08:04)
[2020-02-20 08:06] VITALS: BP 101/56; PULSE 88
--- NOTE | 2020-02-20 13:05 | P.DS ---
Providers Date of admission: 02/15/20 14:35 Expected date of discharge: 02/20/20 Attending physician: Ed Desouza MD Consults: 02/15/20 14:37 Consult Physician Routine Consulting Provider: Trace Carlin Consult Reason/Comments: medical management Do you want consulting provider notified?: Yes Primary care physician: Stated None - Discharge Diagnosis(es) (1) Schizoaffective disorder Current Visit: Yes Status: Acute Priority: High (2) Nicotine dependence Current Visit: Yes Status: Acute Priority: Low (3) Opioid dependence on agonist therapy Current Visit: Yes Status: Acute Priority: Low Hospital Course: Admission HPI: Patient is a 49-year-old female who is and lives with her father and has 2 boys and collects Social Security. Patient presented to the hospital via EMS for psychiatric evaluation. Patient was last admitted on to the mental health unit in July 2019 and was placed on Invega Sustenna at that time for psychosis and noncompliance. Patient admitted in the ER that she was hearing voices and was acting erratically and uncooperative in the ER. Patient apparently had her last dose of Invega Sustenna on . Patient was petitioned by EPS nurse who stated that patient is a "potential harm to self and/or others" and also has been noncompliant with her medications and treatment. Patient was seen up on the unit and appeared to be having poor hygiene and grooming. She did appear to be confused have poor insight and judgment. She states that she is feeling "agitated at home". She states that she was not able to "handle my nerves and they got really bad". She was preoccupied with her anxiety and was also responding to internal stimuli during the interview. She states that she's been sleeping poorly at home has been noncompliant with her oral medications. She denied any depression today however did complain of severe anxiety. She denied any symptoms of manic episode including increasing goal-directed activity and increase in energy. Patient denies any suicidal or homicidal ideations intent or plan. At this time patient denies any auditory or visual hallucinations. Patient admits to using cigarettes daily. UDS pending. Hospital course: Upon admission to the unit patient was initially confused and bizarre. Patient was however admitted involuntarily however ended up signing a deferral on day of discharge 02/20/2020. Patient got along well with other patients on the unit and followed unit protocol. Patient was compliant with the medications and denied any side effects throughout hospital course. Patient was started on paliperidone by mouth and titrated up to a dose of 3 mg daily +6 mg daily at bedtime for psychosis/mood stabilization. Patient was also started on trazodone 50 mg daily at bedtime for insomnia/mood. Patient was previously on Invega Sustenna 156 mg IM injections monthly and patient's next injection was due on 02/25/2020. This dose of Invega Sustenna was increased to 234 mg IM monthly. Patient was also placed on a methadone taper for opiate withdrawal symptoms as patient was previously on Suboxone given to her by her outpatient provider and did not have any to bring in to take in the hospital. Throughout the hospitalization, patient repeatedly asked for different controlled substances and medications from her doctor including Xanax, Ativan and Valium however these were not started as they have high abuse potential and patient was counseled on this. Patient spoke of her stressors and engaged in some therapy both group and individual. Patient was also seen by medical team for history and physical exam. Throughout the course of the hospitalization patient gradually improved with regards to mood, anxiety, psychosis/bizarre behavior, sleep and improved with regards to her insight and judgment. On the day of discharge patient denied any suicidal or homicidal ideations intent or plan denied any auditory or visual hallucinations. Patient endorsed wanting to live for her future and her family. The patient denied any access to guns or weapons. Patient denied any paranoia and did not endorse any delusions. Patient does have a significant history of substance abuse and was counseled on abstaining from all substances including alcohol and marijuana. Patient elected to do outpatient substance use treatment program through [facility]. Patient was also counseled on the medications and need for regular compliance and was encouraged to follow-up with their outpatient appointment for mental health and also for primary care. Prior to discharge a family meeting will be arranged by director social welfare to answer any questions and ensure safety upon discharge. Mental status exam: General Appearance: Patient appears to be older than stated age is alert, pleasant, and cooperative. Patient is in no acute distress and has improved hygiene and grooming Behavior: Patient is calmly seated without any agitated behavior. Speech: Patient's speech is fluent and nonpressured. Mood/Affect: Patient reports their mood is "better", affect is congruent and euthymic. Suicidality/Homicidality: Patient denies having any suicidal or homicidal ideation intent or plan. Perceptions: Patient denies any auditory or visual hallucinations. Though content/process: There is no evidence of any delusional thought content and thought process is linear and goal-directed. Memory and concentration: AOX3, grossly intact for the purposes of this session. Can spell "WORLD" backwards correctly. Judgment and insight: chronically poor, however has improved with guarded prognosis Impression: Schizoaffective disorder, unspecified Anxiety disorder unspecified Opioid dependence, currently on agonist therapy Nicotine dependence Plan: -Continue with discharge today as patient has improved and stabilized psychiatrically and is not currently an imminent threat to herself and/or others. Patient will remain at chronically elevated risk for harm to self and/or others due to her impulsivitiy and substance abuse. -Continue medications: Continue with paliperidone by mouth 3 mg daily +6 mg daily at bedtime for psychosis for 10 more days to bridge onto Invega Sustenna. Patient will be due for her next dose of Invega Sustenna 234 mg IM on 02/25/2020 and will be receiving this monthly thereafter. Continue with trazodone 50 mg daily at bedtime for insomnia/mood. -Patient was counseled on the need for medication compliance and appropriate follow-up at mental health and also primary care for medical issues. Patient verbalized understanding and agreed. -Social work to arrange for and conduct family meeting to ensure safety upon discharge and answer any questions/concerns. Social work also to arrange for patients follow up appointments with [facility] for psychiatric care along with follow up with primary care provider. -Patient counseled on abstaining from recreational drugs and marijuana and alcohol. Was informed/educated on the adverse effects on their physical and mental health. Patient verbally agreed and understood. -Patient was instructed to return to the hospital or seek immediate medical care if their psychiatric or medical symptoms do worsen or reoccur. Allergies Allergy/AdvReac Type Severity Reaction Status Date / Time No Known Allergies Allergy Verified 02/15/20 16:43 Laboratory Results WBC 6.3 k/uL (3.8-10.6) 02/16/20 08:09 RBC 5.24 m/uL (3.80-5.40) 02/16/20 08:09 Hgb 15.4 gm/dL (11.4-16.0) 02/16/20 08:09 Hct 44.4 % (34.0-46.0) 02/16/20 08:09 MCV 84.7 fL (80.0-100.0) 02/16/20 08:09 MCH 29.3 pg (25.0-35.0) 02/16/20 08:09 MCHC 34.6 g/dL (31.0-37.0) 02/16/20 08:09 RDW 12.5 % (11.5-15.5) 02/16/20 08:09 Plt Count 251 k/uL (150-450) 02/16/20 08:09 MPV 6.7 02/16/20 08:09 Neutrophils % 53 % 02/16/20 08:09 Lymphocytes % 35 % 02/16/20 08:09 Monocytes % 6 % 02/16/20 08:09 Eosinophils % 3 % 02/16/20 08:09 Basophils % 1 % 02/16/20 08:09 Neutrophils # 3.3 k/uL (1.3-7.7) 02/16/20 08:09 Lymphocytes # 2.2 k/uL (1.0-4.8) 02/16/20 08:09 Monocytes # 0.4 k/uL (0-1.0) 02/16/20 08:09 Eosinophils # 0.2 k/uL (0-0.7) 02/16/20 08:09 Basophils # 0.1 k/uL (0-0.2) 02/16/20 08:09 Sodium 139 mmol/L (137-145) 02/16/20 08:09 Potassium 4.4 mmol/L (3.5-5.1) 02/16/20 08:09 Chloride 109 mmol/L (98-107) H 02/16/20 08:09 Carbon Dioxide 25 mmol/L (22-30) 02/16/20 08:09 Anion Gap 5 mmol/L 02/16/20 08:09 BUN 12 mg/dL (7-17) 02/16/20 08:09 Creatinine 0.90 mg/dL (0.52-1.04) 02/16/20 08:09 Est GFR (CKD-EPI)AfAm 89 (>60 ml/min/1.73 sqM) 02/16/20 08:09 Est GFR (CKD-EPI)NonAf 77 (>60 ml/min/1.73 sqM) 02/16/20 08:09 Glucose 103 mg/dL (74-99) H 02/16/20 08:[address] Glu mg/dL 103 02/16/20 08:09 Hemoglobin A1c 5.2 % (4.0-6.0) 02/16/20 08:09 Calcium 9.4 mg/dL (8.4-10.2) 02/16/20 08:09 Total Bilirubin 0.8 mg/dL (0.2-1.3) 02/16/20 08:09 AST 24 U/L (14-36) 02/16/20 08:09 ALT 23 U/L (4-34) 02/16/20 08:09 Alkaline Phosphatase 73 U/L (38-126) 02/16/20 08:09 Total Protein 6.7 g/dL (6.3-8.2) 02/16/20 08:09 Albumin 4.1 g/dL (3.5-5.0) 02/16/20 08:09 Triglycerides 147 mg/dL (<150) 02/16/20 08:09 Cholesterol 198 mg/dL (<200) 02/16/20 08:09 LDL Cholesterol, Calc 130 mg/dL (0-99) H 02/16/20 08:09 HDL Cholesterol 39 mg/dL (40-60) L 02/16/20 08:09 TSH 0.742 mIU/L (0.465-4.680) 02/16/20 08:09 Urine HCG, Qual Not Detected (Not Detectd) 02/17/20 11:00 Urine Opiates Screen Not Detected (NotDetected) 02/17/20 11:00 Ur Oxycodone Screen Not Detected (NotDetected) 02/17/20 11:00 Urine Methadone Screen Not Detected (NotDetected) 02/17/20 11:00 Ur Propoxyphene Screen Not Detected (NotDetected) 02/17/20 11:00 Ur Barbiturates Screen Not Detected (NotDetected) 02/17/20 11:00 U Tricyclic Antidepress Not Detected (NotDetected) 02/17/20 11:00 Ur Phencyclidine Scrn Not Detected (NotDetected) 02/17/20 11:00 Ur Amphetamines Screen Detected (NotDetected) H 02/17/20 11:00 U Methamphetamines Scrn Not Detected (NotDetected) 02/17/20 11:00 U Benzodiazepines Scrn Detected (NotDetected) H 02/17/20 11:00 Urine Cocaine Screen Not Detected (NotDetected) 02/17/20 11:00 U Marijuana (THC) Screen Not Detected (NotDetected) 02/17/20 11:00 Coronavirus (PCR) Not Detected (Not Detectd) 02/15/20 13:17 Vital Signs Temp 97.9 F 02/20/20 06:05 Pulse 88 02/20/20 08:04 Resp 16 02/20/20 08:04 BP 101/56 02/20/20 08:04 Pulse Ox 98 02/20/20 06:05 Patient Condition at Discharge: Stable Plan - Discharge Summary Discharge Rx Participant: No New Discharge Prescriptions: New cloNIDine HCL [Catapres] 0.1 mg PO BID 30 Days tab traZODone HCL [Desyrel] 50 mg PO HS 30 Days tab Nicotine 21Mg/24Hr Patch [Habitrol] 1 patch TRANSDERM DAILY 14 Days patch Paliperidone [Invega] 3 mg PO DAILY #10 tab.er.24 Paliperidone [Invega] 6 mg PO HS 10 Days tab.er.24 Paliperidone IM [Invega Sustenna] 234 mg IM QMONTHLY #1 syr Acetaminophen Tab [Tylenol] 650 mg PO Q4HR PRN 30 Days tab PRN Reason: Pain/Discomfort Continue Albuterol Sulfate [Ventolin HFA] 1 - 2 puff INHALATION Q6H PRN PRN Reason: Shortness Of Breath Naloxone (Mdv) [Narcan (Mdv)] 4 mg IM ONCE PRN PRN Reason: OVERDOSE Buprenorphine HCl/Naloxone HCl [Suboxone 8 mg-2 mg Sl Film] 2 film SL DAILY Loratadine [Claritin] 10 mg PO DAILY 30 Days tab Discontinued traZODone HCL [Desyrel] 50 mg PO HS 30 Days tab Nicotine 21Mg/24Hr Patch [Habitrol] 1 patch TRANSDERM DAILY 14 Days patch Paliperidone [Invega] 6 mg PO DAILY 3 Days tab.er.24 Paliperidone [Invega] 3 mg PO DAILY 3 Days tab.er.24 Acetaminophen Tab [Tylenol] 650 mg PO Q4HR PRN tab PRN Reason: Pain/Discomfort Paliperidone IM [Invega Sustenna] 156 mg IM ONCE #1 syr cloNIDine HCL [Catapres] 0.1 mg PO BID Cyclobenzaprine [Flexeril] 10 mg PO BID PRN PRN Reason: Muscle Spasm Discharge Medication List Albuterol Sulfate [Ventolin HFA] 1 - 2 puff INHALATION Q6H PRN 02/15/20 [History] Buprenorphine HCl/Naloxone HCl [Suboxone 8 mg-2 mg Sl Film] 2 film SL DAILY 02/15/20 [History] Naloxone (Mdv) [Narcan (Mdv)] 4 mg IM ONCE PRN 02/15/20 [History] Acetaminophen Tab [Tylenol] 650 mg PO Q4HR PRN 30 Days tab 02/20/20 [Rx] Loratadine [Claritin] 10 mg PO DAILY 30 Days tab 02/20/20 [Rx] Nicotine 21Mg/24Hr Patch [Habitrol] 1 patch TRANSDERM DAILY 14 Days patch 02/20/20 [Rx] Paliperidone IM [Invega Sustenna] 234 mg IM QMONTHLY #1 syr 02/20/20 [Rx] Paliperidone [Invega] 3 mg PO DAILY #10 tab.er.24 02/20/20 [Rx] Paliperidone [Invega] 6 mg PO HS 10 Days tab.er.24 02/20/20 [Rx] cloNIDine HCL [Catapres] 0.1 mg PO BID 30 Days tab 02/20/20 [Rx] traZODone HCL [Desyrel] 50 mg PO HS 30 Days tab 02/20/20 [Rx] Follow up Appointment(s)/Referral(s): [facility] [Outside] - 02/23/20 11:00 am (02-23-20 @ 11:00 with Mehnaz Duong at [facility] face to face 02-25-20 @ 8:30 with DORINDA Ruggiero at [facility] face to face 03-01-20 @ 11:00 with Sharad Rankin by phone) None,Stated [Primary Care Provider] - 1-2 days Patient Instructions/Handouts: Anxiety (ED), Psychotic Disorder (DC) Activity/Diet/Wound Care/Special Instructions: Activity and diet as tolerated. Avoid the use of street drugs and alcohol. Take all medications as prescribed. When you are in need of refills on your medications please contact your medical provider and/or outpatient psychiatrist to have this done. Please go to scheduled outpatient appointment for aftercare treatment. If symptoms return or become worse, call the crisis line at and/or go to the nearest emergency room for evaluation. Discharge Disposition: HOME SELF-CARE
[2020-02-20 15:55] VITALS: TEMP 97.5
[2020-02-21] MEDS ORDERED: METHADONE 10 MG TAB PO SCH (09:00)
== END 2020-02-20 13:20 | disposition home or self-care (01) | DRG 885 ==
LOC: EC 07:46 → 3MHU 14:35
PROVIDERS: ADMIT Psychiatry & Neurology Psychiatry; ATTEND Psychiatry & Neurology Psychiatry
DX: F25.9 Schizoaffective disorder, unspecified (principal); F11.23 Opioid dependence with withdrawal; G40.909 Epilepsy, unspecified, not intractable, without status epilepticus; F31.9 Bipolar disorder, unspecified; Z91.19 Patient's noncompliance with other medical treatment and regimen; Z20.828 Contact with and (suspected) exposure to other viral communicable diseases; J45.909 Unspecified asthma, uncomplicated; G47.00 Insomnia, unspecified; F41.9 Anxiety disorder, unspecified; F17.210 Nicotine dependence, cigarettes, uncomplicated; Z71.6 Tobacco abuse counseling; Z79.899 Other long term (current) drug therapy; Z86.14 Personal history of Methicillin resistant Staphylococcus aureus infection; Z98.891 History of uterine scar from previous surgery; Z98.890 Other specified postprocedural states; Z90.710 Acquired absence of both cervix and uterus; Z87.42 Personal history of other diseases of the female genital tract; Z96.642 Presence of left artificial hip joint
CPT/HCPCS: 80053; 80061; 80306; 81025; 82075; 83036; 84443; 85025; 87635; 93005; 96372; 99285

== ENCOUNTER 2020-04-23 15:57 | Emergency (ER) | payer OTHER ==
[2020-04-23 16:02] VITALS: BP 147/86; PULSE 113; RESP 20; TEMP 98.3
--- NOTE | 2020-04-23 16:20 | ED ---
General Adult HPI - General Chief complaint: Psychiatric Symptoms Stated complaint: Petition Time Seen by Provider: 04/23/20 16:03 Source: patient, police, RN notes reviewed, old records reviewed Mode of arrival: ambulatory Limitations: no limitations - History of Present Illness Initial comments: 49-year-old female presents for mental health evaluation. Patient is brought in under petition by [facility]. She is brought in by police. She was resisting arrest and required restraint during transport. She states that she is 2 days early for her injected antipsychotic. She states that it was her father who wanted her to receive her shots regularly. Uncertain of the exact timing of her shot. She is calm and cooperative, no suicidal or homicidal ideation. - Related Data Home Medications Medication Instructions Recorded Confirmed Albuterol Sulfate [Ventolin HFA] 1 - 2 puff INHALATION Q6H PRN 02/15/20 02/15/20 Buprenorphine HCl/Naloxone HCl 2 film SL DAILY 02/15/20 02/15/20 [Suboxone 8 mg-2 mg Sl Film] Naloxone (Mdv) [Narcan (Mdv)] 4 mg IM ONCE PRN 02/15/20 02/15/20 Previous Rx's Medication Instructions Recorded Acetaminophen Tab [Tylenol] 650 mg PO Q4HR PRN 30 Days tab 02/20/20 Loratadine [Claritin] 10 mg PO DAILY 30 Days tab 02/20/20 Nicotine 21Mg/24Hr Patch [Habitrol] 1 patch TRANSDERM DAILY 14 Days 02/20/20 patch Paliperidone IM [Invega Sustenna] 234 mg IM QMONTHLY #1 syr 02/20/20 Paliperidone [Invega] 3 mg PO DAILY #10 tab.er.24 02/20/20 Paliperidone [Invega] 6 mg PO HS 10 Days tab.er.24 02/20/20 cloNIDine HCL [Catapres] 0.1 mg PO BID 30 Days tab 02/20/20 traZODone HCL [Desyrel] 50 mg PO HS 30 Days tab 02/20/20 Allergies Allergy/AdvReac Type Severity Reaction Status Date / Time No Known Allergies Allergy Verified 04/23/20 16:02 Review of Systems ROS Statement: Those systems with pertinent positive or pertinent negative responses have been documented in the HPI. ROS Other: All systems not noted in ROS Statement are negative. Past Medical History Past Medical History: Asthma Additional Past Medical History / Comment(s): "I don't know" History of Any Multi-Drug Resistant Organisms: MRSA Date of last positivie culture/infection: 03/13/19 MDRO Source:: Left Leg Past Surgical History: Back Surgery, Section, Hysterectomy, Joint Replacement Additional Past Surgical History / Comment(s): x2, lt hip Past Anesthesia/Blood Transfusion Reactions: No Reported Reaction Past Psychological History: Anxiety, Bipolar, Depression, Schizoaffective Di sorder Smoking Status: Current every day smoker Past Alcohol Use History: Occasional Past Drug Use History: None Reported General Exam Limitations: no limitations General appearance: alert, in no apparent distress Head exam: Present: atraumatic, normocephalic Eye exam: Present: normal appearance, PERRL ENT exam: Present: normal exam Neck exam: Present: normal inspection. Absent: tenderness, meningismus Respiratory exam: Present: normal lung sounds bilaterally. Absent: respiratory distress, wheezes Cardiovascular Exam: Present: regular rate, normal rhythm GI/Abdominal exam: Present: soft. Absent: distended, tenderness Extremities exam: Present: normal inspection, normal capillary refill. Absent: pedal edema Back exam: Present: normal inspection Neurological exam: Present: alert, oriented X3, CN II-XII intact. Absent: motor sensory deficit Psychiatric exam: Present: flat affect. Absent: suicidal ideation Skin exam: Present: warm, dry, intact. Absent: cyanosis, diaphoretic Course Vital Signs 04/23/20 15:59 Temperature 98.3 F Pulse Rate 113 H Respiratory 20 Rate Blood Pressure 147/86 O2 Sat by Pulse 99 Oximetry - Reevaluation(s) Reevaluation #1: 04/23/20 16:20 Cleared for EPS evaluation Medical Decision Making - Medical Decision Making 49-year-old female presenting for psychiatric evaluation. She is due for her medication. She has been evaluated by EPS and the psychiatrist on-call feels that the patient should be given her depo shot. With close outpatient follow- up. No need for inpatient psychiatric evaluation and treatment. Patient has been calm, cooperative. No suicidal homicidal ideation. Disposition Clinical Impression: Schizoaffective disorder Disposition: HOME SELF-CARE Condition: Fair Instructions (If sedation given, give patient instructions): Schizoaffective Disorder (ED) Additional Instructions: Please follow up with [facility]. Is patient prescribed a controlled substance at d/c from ED?: No Referrals: None,Stated [Primary Care Provider] - 1-2 days Time of Disposition: 17:20
[2020-04-23] MEDS ORDERED: PALIPERIDONE IM 234 MG/1.5 ML SYG IM ONE (17:17)
== END 2020-04-23 17:28 | disposition home or self-care (01) ==
LOC: EC 15:57
DX: Z04.6 Encounter for general psychiatric examination, requested by authority (principal); F25.9 Schizoaffective disorder, unspecified; J45.909 Unspecified asthma, uncomplicated; F17.200 Nicotine dependence, unspecified, uncomplicated; Z90.710 Acquired absence of both cervix and uterus; Z96.642 Presence of left artificial hip joint; Z86.14 Personal history of Methicillin resistant Staphylococcus aureus infection
CPT/HCPCS: 82075; 99284; 96372; J2426

== ENCOUNTER 2021-01-10 14:55 | Inpatient (IN) | payer MEDICAID, OTHER ==
--- NOTE | 2021-01-10 16:05 | ED ---
General Adult HPI - General Chief complaint: Psychiatric Symptoms Stated complaint: Mental Health Time Seen by Provider: 01/10/21 15:52 Source: patient, RN notes reviewed, old records reviewed Mode of arrival: ambulatory Limitations: no limitations - History of Present Illness Initial comments: Well-appearing 50-year-old female presents to the emergency room, alert and oriented 4 with complaints of hearing voices. She states that she's heard these voices in the past and they are telling her to steal things. She states the voices tell her to steal things and then she can get "castaneda" back, Castaneda is one of the voices that keeps her from doing bad things. She states that she is not having any suicidal or homicidal thoughts. She states that last week she was sick with the flu and vomited for 4 days. States that she thinks she vomited up her clonidine. Patient states she is due for her invega shot at [facility] this Sunday. She is concerned because the voices are getting stronger and she still has a sense of reality and it is scaring her. She states in the past she loses control when she doesn't want get to that point. She is also concerned that the medications increase her weight gain and she does not want to gain anymore weight. She denies any pain, nausea vomiting or diarrhea at this time. No fevers. She is a pack-a-day smoker. She denies any illegal drug or alcohol use. Patient does have history of asthma, anxiety, depression, and schizoaffective disorder -: days(s) (4) Severity scale (1-10): 0 Treatments Prior to Arrival: none - Related Data Home Medications Medication Instructions Recorded Confirmed Albuterol Sulfate [Proair Hfa] 1 - 2 puff INHALATION RT-Q6H PRN 01/10/21 01/10/21 Buprenorphine HCl/Naloxone HCl 1 film SL BID PRN 01/10/21 01/10/21 [Suboxone 8 mg-2 mg Sl Film] Ondansetron Odt [Zofran Odt] 4 mg PO Q12HR PRN 01/10/21 01/10/21 Phentermine HCl [Adipex-P] 37.5 mg PO DAILY 01/10/21 01/10/21 cloNIDine HCL [Catapres] 0.1 mg PO DAILY 01/10/21 01/10/21 Previous Rx's Medication Instructions Recorded Loratadine [Claritin] 10 mg PO DAILY 30 Days tab 02/20/20 Paliperidone IM [Invega Sustenna] 234 mg IM QMONTHLY #1 syr 02/20/20 Allergies Allergy/AdvReac Type Severity Reaction Status Date / Time No Known Allergies Allergy Verified 01/10/21 17:54 Review of Systems ROS Statement: Those systems with pertinent positive or pertinent negative responses have been documented in the HPI. ROS Other: All systems not noted in ROS Statement are negative. Past Medical History Past Medical History: Asthma Additional Past Medical History / Comment(s): "I don't know" History of Any Multi-Drug Resistant Organisms: MRSA Date of last positivie culture/infection: 03/13/19 MDRO Source:: Left Leg Past Surgical History: Back Surgery, Section, Hysterectomy, Joint Replacement Additional Past Surgical History / Comment(s): x2, lt hip Past Anesthesia/Blood Transfusion Reactions: No Reported Reaction Past Psychological History: Anxiety, Bipolar, Depression, Schizoaffective Diso rder Smoking Status: Current every day smoker Past Alcohol Use History: Occasional Past Drug Use History: None Reported General Exam Limitations: no limitations General appearance: alert, in no apparent distress Head exam: Present: atraumatic, normocephalic, normal inspection Eye exam: Present: normal appearance, PERRL, EOMI. Absent: scleral icterus, conjunctival injection, periorbital swelling ENT exam: Present: normal exam, normal oropharynx, mucous membranes moist Neck exam: Present: normal inspection, full ROM. Absent: tenderness, meningismus, lymphadenopathy Respiratory exam: Present: normal lung sounds bilaterally. Absent: respiratory distress, wheezes, rales, rhonchi, stridor Cardiovascular Exam: Present: normal rhythm, tachycardia, normal heart sounds. Absent: systolic murmur, diastolic murmur, rubs, gallop, clicks GI/Abdominal exam: Present: soft, normal bowel sounds. Absent: distended, tenderness, guarding, rebound, rigid Back exam: Present: normal inspection, full ROM. Absent: tenderness, rash noted Neurological exam: Present: alert, oriented X3 Psychiatric exam: Present: normal affect, normal mood. Absent: agitated, flat affect, manic, homicidal ideation, suicidal ideation Skin exam: Present: warm, dry, intact, normal color. Absent: rash, cyanosis, diaphoretic Course Vital Signs 01/10/21 15:08 Temperature 97.8 F Pulse Rate 106 H Respiratory 20 Rate Blood Pressure 131/86 O2 Sat by Pulse 95 Oximetry Medical Decision Making - Medical Decision Making Patient will be admitted to inpatient psychiatric care. EPS nurse Christine has spoken with patient and she is agreeable to this plan of care. - Lab Data Lab Results 01/10/21 01/10/21 01/10/21 Range/Units Unknown Unknown Unknown Urine Color Light Yellow Urine Appearance Cloudy H (Clear) Urine pH 6.5 (5.0-8.0) Ur Specific Lyman 1.007 (1.001-1.035) Urine Protein Negative (Negative) Urine Glucose (UA) Negative (Negative) Urine Ketones Negative (Negative) Urine Blood Negative (Negative) Urine Nitrite Negative (Negative) Urine Bilirubin Negative (Negative) Urine Urobilinogen <2.0 (<2.0) mg/dL Ur Leukocyte Esterase Negative (Negative) Urine RBC 1 (0-5) /hpf Urine WBC 3 (0-5) /hpf Ur Squamous Epith Cells 17 H (0-4) /hpf Urine Bacteria Rare H (None) /hpf Urine HCG, Qual (Not Detectd) Urine Opiates Screen Not Detected (NotDetected) Ur Oxycodone Screen Not Detected (NotDetected) Urine Methadone Screen Not Detected (NotDetected) Ur Propoxyphene Screen Not Detected (NotDetected) Ur Barbiturates Screen Not Detected (NotDetected) U Tricyclic Antidepress Not Detected (NotDetected) Ur Phencyclidine Scrn Not Detected (NotDetected) Ur Amphetamines Screen Detected H (NotDetected) U Methamphetamines Scrn Not Detected (NotDetected) U Benzodiazepines Scrn Not Detected (NotDetected) Urine Cocaine Screen Not Detected (NotDetected) U Marijuana (THC) Screen Not Detected (NotDetected) Coronavirus (PCR) Not Detected (Not Detectd) 01/10/21 Range/Units Unknown Urine Color Urine Appearance (Clear) Urine pH (5.0-8.0) Ur Specific Lyman (1.001-1.035) Urine Protein (Negative) Urine Glucose (UA) (Negative) Urine Ketones (Negative) Urine Blood (Negative) Urine Nitrite (Negative) Urine Bilirubin (Negative) Urine Urobilinogen (<2.0) mg/dL Ur Leukocyte Esterase (Negative) Urine RBC (0-5) /hpf Urine WBC (0-5) /hpf Ur Squamous Epith Cells (0-4) /hpf Urine Bacteria (None) /hpf Urine HCG, Qual Not Detected (Not Detectd) Urine Opiates Screen (NotDetected) Ur Oxycodone Screen (NotDetected) Urine Methadone Screen (NotDetected) Ur Propoxyphene Screen (NotDetected) Ur Barbiturates Screen (NotDetected) U Tricyclic Antidepress (NotDetected) Ur Phencyclidine Scrn (NotDetected) Ur Amphetamines Screen (NotDetected) U Methamphetamines Scrn (NotDetected) U Benzodiazepines Scrn (NotDetected) Urine Cocaine Screen (NotDetected) U Marijuana (THC) Screen (NotDetected) Coronavirus (PCR) (Not Detectd) Disposition Clinical Impression: Schizoaffective disorder Disposition: ADMITTED IP TO THIS [facility] Condition: Good Referrals: Jayme Forbes MD [Primary Care Provider] - 1-2 days Decision Date: 01/10/21 Decision Time: 18:00
[2021-01-10 18:06] LABS: Appearance,Urine Cloudy (Clear); Bacteria,Urine Rare /hpf; Bilirubin,Urine Negative (Negative); Blood,Urine Negative (Negative); Color,Urine Light Yellow; Glucose,Urine (UA) Negative (Negative); Ketones,Urine Negative (Negative); Leukocyte Esterase,Urine Negative (Negative); Nitrite,Urine Negative (Negative); PH, Urine 6.5 (5.0-8.0); Protein,Urine Negative (Negative); RBC,Urine 1 /hpf (0-5); Specific Gravity,Urine 1.007 (1.001-1.035); Squamous Epithelial Cell,Urine 17 /hpf (0-4); Urobilinogen,Urine <2.0 mg/dL (<2.0); WBC,Urine 3 /hpf (0-5)
[2021-01-10 18:24] LABS: Amphetamine Screen,Urine Detected (NotDetected); Barbiturate Screen,Urine Not Detected (NotDetected); Benzodiazepines Screen,Urine Not Detected (NotDetected); Cocaine Screen,Urine Not Detected (NotDetected); Methadone Screen, Urine Not Detected (NotDetected); Opiate Screen,Urine Not Detected (NotDetected); Oxycodone Screen, Urine Not Detected (NotDetected); Phencyclidine Screen,Urine Not Detected (NotDetected); Tricyclic Antidepressant,Urine Not Detected (NotDetected); Urn Cannabinoid Scrn Not Detected (NotDetected)
[2021-01-10] MEDS ORDERED: ALBUTEROL INHALER 60 PUFF/8 GM INHALER (MHU) INHALATION PRN (19:46)
[2021-01-10] MEDS ORDERED: MAGNESIUM HYDROXIDE 2,400 MG/10 ML CUP PO PRN (19:48)
[2021-01-10] MEDS ORDERED: MAG HYDROX/AL HYDROX/SIMETH 30 ML CUP PO PRN (19:48)
[2021-01-10] MEDS ORDERED: LORazepam 2 MG/ML INJ IM PRN (19:50)
--- NOTE | 2021-01-10 21:20 | P.CONS ---
History of Present Illness - Reason for Consult Consult date: 01/10/21 - History of Present Illness The patient is a 50-year-old female with a PMH of COPD, tobacco abuse, history of substance abuse (sober for 1 year as per patient) currently on Suboxone, and switch of any presented to the emergency room with complaints of auditory and visual hallucinations. The patient reports that her "voices have come back" and consists of multiple entities including God and the devil who were speaking to her and trying to persuade her to "do bad things". The patient reports chronic lower back pain for which she takes Tylenol and Motrin at home. She continues to smoke one pack of cigarettes daily. She denied any additional complaints. He denied chest discomfort, shortness of breath, fever, chills, cough. Denied nausea, vomiting, abdominal pain, diarrhea. Review of systems: Pertinent positives and negatives as discussed in HPI, a complete review of systems was performed and all other systems are negative. Physical examination: General: non toxic, no distress, appears at stated age, obese Derm: no unusual rashes/lesions no unusual ecchymoses, warm, dry Head: atraumatic, normocephalic, symmetric Eyes: EOMI, no lid lag, anicteric sclera, pupils equal round reactive to light ENT: Nose and ears atraumatic, no thrush, no pharyngeal erythema Neck: No thyromegaly, no cervical lymphadenopathy, trachea midline, supple Mouth: no lip lesion, mucus membranes moist Cardiovascular: S1S2 reg, no murmur, positive posterior tibial pulse bilateral, no edema, capillary refill less than 2 seconds Lungs: CTA bilateral, no rhonchi, no rales , no accessory muscle use Abdominal: soft, nontender to palpation, no guarding, no appreciable organomegaly, normal bowel sounds Ext: no gross muscle atrophy, muscle strength 5 out of 5 in all 4 extremities grossly, no contractures, Neuro: CN II-XI grossly intact, light touch intact all 4 extremities, finger to nose within normal limits, Psych: Alert, oriented, appropriate affect Assessment/plan Chronic conditions: COPD, tobacco abuse, history of substance abuse -Continue with home meds -Will defer Suboxone administration to the Psychiatry service Psychosis -As per psychiatry Thank you for allowing us to participate in the care of this patient. We will follow peripherally. Do not hesitate to contact us with questions. Someone can be reached from the [facility] hospitalist group at all hours of the day at [phone]. Past Medical History Past Medical History: Asthma Additional Past Medical History / Comment(s): "I don't know" History of Any Multi-Drug Resistant Organisms: MRSA Year Discovered:: 03/13/19 MDRO Source:: Left Leg Past Surgical History: Back Surgery, Section, Hysterectomy, Joint Replacement, Orthopedic Surgery Additional Past Surgical History / Comment(s): x2, lt hip, plate and pins in right wrist Past Anesthesia/Blood Transfusion Reactions: No Reported Reaction Past Psychological History: Anxiety, Bipolar, Depression, Schizoaffective Disorder Smoking Status: Current every day smoker Past Alcohol Use History: None Reported Additional Past Alcohol Use History / Comment(s): pt denies use of alcohol and street drugs. Past Drug Use History: None Reported, Cocaine, Methamphetamine Additional Drug Use History / Comment(s): pt reports history of using methamphetamines and cocaine, but denies having used for a year. - Past Family History Mother Family Medical History: Cancer Medications and Allergies Home Medications Medication Instructions Recorded Confirmed Type Loratadine [Claritin] 10 mg PO DAILY 30 Days tab 02/20/20 01/10/21 Rx Paliperidone IM [Invega Sustenna] 234 mg IM QMONTHLY #1 syr 02/20/20 01/10/21 Rx Albuterol Sulfate [Proair Hfa] 1 - 2 puff INHALATION RT-Q6H PRN 01/10/21 01/10/21 History Buprenorphine HCl/Naloxone HCl 1 film SL BID PRN 01/10/21 01/10/21 History [Suboxone 8 mg-2 mg Sl Film] Ondansetron Odt [Zofran Odt] 4 mg PO Q12HR PRN 01/10/21 01/10/21 History Phentermine HCl [Adipex-P] 37.5 mg PO DAILY 01/10/21 01/10/21 History cloNIDine HCL [Catapres] 0.1 mg PO DAILY 01/10/21 01/10/21 History Allergies Allergy/AdvReac Type Severity Reaction Status Date / Time No Known Allergies Allergy Verified 01/10/21 17:54 Physical Exam Vitals: Vital Signs Temp Pulse Resp BP BP Pulse Ox 01/10/21 20:25 97.8 F 14 134/86 97 01/10/21 15:08 97.8 F 106 H 20 131/86 95 Intake and Output 01/10/21 01/10/21 01/10/21 06:59 14:59 22:59 Other: Weight 84.935 kg Results Labs: Abnormal Lab Results - Last 24 Hours (Table) 01/10/21 01/10/21 Range/Units Unknown Unknown Urine Appearance Cloudy H (Clear) Ur Squamous Epith Cells 17 H (0-4) /hpf Urine Bacteria Rare H (None) /hpf Ur Amphetamines Screen Detected H (NotDetected)
[2021-01-10] MEDS: NICOTINE 14MG/24HR PATCH TRANSDERM SCH (22:26)
[2021-01-10] MEDS: LORazepam 1 MG TAB PO PRN (23:38)
[2021-01-11 07:23] LABS: Albumin 3.8 g/dL (3.5-5.0); Basophils # (A) 0.1 k/uL (0-0.2); Basophils % (A) 1 %; Calcium 9.3 mg/dL (8.4-10.2); Eosinophils # (A) 0.3 k/uL (0-0.7); Eosinophils % (A) 5 %; HCT 42.7 % (34.0-46.0); HGB 14.4 gm/dL (11.4-16.0); Lymphocytes # (A) 2.2 k/uL (1.0-4.8); Lymphocytes % (A) 37 %; MCH 29.3 pg (25.0-35.0); MCHC 33.7 g/dL (31.0-37.0); MCV 87.1 fL (80.0-100.0); Monocytes # (A) 0.4 k/uL (0-1.0); Monocytes % (A) 7 %; Neutrophils # (A) 2.9 k/uL (1.3-7.7); Neutrophils % (A) 48 %; Platelet Count 288 k/uL (150-450); Potassium 4.3 mmol/L (3.5-5.1); RDW 11.7 % (11.5-15.5); Total Bilirubin 0.4 mg/dL (0.2-1.3); Total Protein 6.4 g/dL (6.3-8.2); WBC 6.1 k/uL (3.8-10.6)
[2021-01-11] MEDS: NICOTINE 14MG/24HR PATCH TRANSDERM SCH (08:02)
[2021-01-11] MEDS: LORATADINE 10 MG TAB PO SCH (08:03)
[2021-01-11] MEDS: cloNIDine HCL 0.1 MG TAB PO SCH (08:03)
[2021-01-11] MEDS: LORazepam 1 MG TAB PO PRN ×2 (08:04→18:36)
[2021-01-11] MEDS ORDERED: NALOXONE SUBLINGUAL SCH (09:00)
[2021-01-11] MEDS ORDERED: BUPRENORPHINE SUBLINGUAL SCH (09:00)
[2021-01-11] MEDS ORDERED: ONDANSETRON ODT 4 MG TAB PO PRN (10:13)
--- NOTE | 2021-01-11 10:28 | P.HP ---
Psychiatric H&P - . H&P Date: 01/11/21 History & Physical: Allergies Allergy/AdvReac Type Severity Reaction Status Date / Time No Known Allergies Allergy Verified 01/10/21 17:54 Vital Signs Temp 97.1 F L 01/11/21 03:00 Pulse 107 H 01/11/21 08:05 Resp 16 01/11/21 03:00 BP 116/64 01/11/21 08:05 Pulse Ox 96 01/11/21 03:00 Intake & Output 01/10/21 01/11/21 01/11/21 18:59 06:59 18:59 Weight 86.183 kg 84.935 kg Laboratory Last Values WBC 6.1 k/uL (3.8-10.6) 01/11/21 06:32 RBC 4.90 m/uL (3.80-5.40) 01/11/21 06:32 Hgb 14.4 gm/dL (11.4-16.0) 01/11/21 06:32 Hct 42.7 % (34.0-46.0) 01/11/21 06:32 MCV 87.1 fL (80.0-100.0) 01/11/21 06:32 MCH 29.3 pg (25.0-35.0) 01/11/21 06:32 MCHC 33.7 g/dL (31.0-37.0) 01/11/21 06:32 RDW 11.7 % (11.5-15.5) 01/11/21 06:32 Plt Count 288 k/uL (150-450) 01/11/21 06:32 MPV 7.0 01/11/21 06:32 Neutrophils % 48 % 01/11/21 06:32 Lymphocytes % 37 % 01/11/21 06:32 Monocytes % 7 % 01/11/21 06:32 Eosinophils % 5 % 01/11/21 06:32 Basophils % 1 % 01/11/21 06:32 Neutrophils # 2.9 k/uL (1.3-7.7) 01/11/21 06:32 Lymphocytes # 2.2 k/uL (1.0-4.8) 01/11/21 06:32 Monocytes # 0.4 k/uL (0-1.0) 01/11/21 06:32 Eosinophils # 0.3 k/uL (0-0.7) 01/11/21 06:32 Basophils # 0.1 k/uL (0-0.2) 01/11/21 06:32 Sodium 138 mmol/L (137-145) 01/11/21 06:32 Potassium 4.3 mmol/L (3.5-5.1) 01/11/21 06:32 Chloride 104 mmol/L (98-107) 01/11/21 06:32 Carbon Dioxide 27 mmol/L (22-30) 01/11/21 06:32 Anion Gap 7 mmol/L 01/11/21 06:32 BUN 14 mg/dL (7-17) 01/11/21 06:32 Creatinine 0.95 mg/dL (0.52-1.04) 01/11/21 06:32 Est GFR (CKD-EPI)AfAm 82 (>60 ml/min/1.73 sqM) 01/11/21 06:32 Est GFR (CKD-EPI)NonAf 72 (>60 ml/min/1.73 sqM) 01/11/21 06:32 Glucose 111 mg/dL (74-99) H 01/11/21 06:32 Calcium 9.3 mg/dL (8.4-10.2) 01/11/21 06:32 Total Bilirubin 0.4 mg/dL (0.2-1.3) 01/11/21 06:32 AST 19 U/L (14-36) 01/11/21 06:32 ALT 15 U/L (4-34) 01/11/21 06:32 Alkaline Phosphatase 61 U/L (38-126) 01/11/21 06:32 Total Protein 6.4 g/dL (6.3-8.2) 01/11/21 06:32 Albumin 3.8 g/dL (3.5-5.0) 01/11/21 06:32 TSH 1.440 mIU/L (0.465-4.680) 01/11/21 06:32 Urine Color Light Yellow 01/10/21 Unknown Urine Appearance Cloudy (Clear) H 01/10/21 Unknown Urine pH 6.5 (5.0-8.0) 01/10/21 Unknown Ur Specific [place] 1.007 (1.001-1.035) 01/10/21 Unknown Urine Protein Negative (Negative) 01/10/21 Unknown Urine Glucose (UA) Negative (Negative) 01/10/21 Unknown Urine Ketones Negative (Negative) 01/10/21 Unknown Urine Blood Negative (Negative) 01/10/21 Unknown Urine Nitrite Negative (Negative) 01/10/21 Unknown Urine Bilirubin Negative (Negative) 01/10/21 Unknown Urine Urobilinogen <2.0 mg/dL (<2.0) 01/10/21 Unknown Ur Leukocyte Esterase Negative (Negative) 01/10/21 Unknown Urine RBC 1 /hpf (0-5) 01/10/21 Unknown Urine WBC 3 /hpf (0-5) 01/10/21 Unknown Ur Squamous Epith Cells 17 /hpf (0-4) H 01/10/21 Unknown Urine Bacteria Rare /hpf (None) H 01/10/21 Unknown Urine HCG, Qual Not Detected (Not Detectd) 01/10/21 Unknown Urine Opiates Screen Not Detected (NotDetected) 01/10/21 Unknown Ur Oxycodone Screen Not Detected (NotDetected) 01/10/21 Unknown Urine Methadone Screen Not Detected (NotDetected) 01/10/21 Unknown Ur Propoxyphene Screen Not Detected (NotDetected) 01/10/21 Unknown Ur Barbiturates Screen Not Detected (NotDetected) 01/10/21 Unknown U Tricyclic Antidepress Not Detected (NotDetected) 01/10/21 Unknown Ur Phencyclidine Scrn Not Detected (NotDetected) 01/10/21 Unknown Ur Amphetamines Screen Detected (NotDetected) H 01/10/21 Unknown U Methamphetamines Scrn Not Detected (NotDetected) 01/10/21 Unknown U Benzodiazepines Scrn Not Detected (NotDetected) 01/10/21 Unknown Urine Cocaine Screen Not Detected (NotDetected) 01/10/21 Unknown U Marijuana (THC) Screen Not Detected (NotDetected) 01/10/21 Unknown Coronavirus (PCR) Not Detected (Not Detectd) 01/10/21 Unknown 01/11/21 10:15 IDENTIFYING DATA: Patient is a 50-year-old female who is and lives with her father and has 2 boys and collects Social Security. HPI: Patient presented to the hospital for psychiatric evaluation regarding patient's symptoms of hearing voices. According to ER report patient was claiming that the voices were telling her to steal things and that she recently caught over some flulike symptoms. Patient has been seen in the past in the ER several times and also admitted to the mental health unit twice in the past. Patient is also a patient of Dr. Christina her psychiatrist at [facility] and is on a monthly Invega Sustenna injection of 234 mg. Patient was admitted to the mental health unit and agreeable to speak to newswriter today. She appeared to be an distress when speaking with the newswriter and feeling overwhelmed and depressed. She states that "my voices are coming back" and states that for the past month or so her voices have been increasing in nature and more negative. She described them as "the God and the devil" which are talking to her and she states that the devil has been telling her to sin and also that the devil wants her to get caught stealing. She states that she feels the medication Invega Sustenna has not been helping her voices any longer and wanted to have her medication changed. She states that last week at the grocery store she was caught stealing and was blocked by police. She claims that she was trying to steal some close and 2 stakes. She states that she got caught twice at the grocery store and also at [facility]. She states that "I don't know why I need to steal I have money". She states that she has been having poor sleep quality and waking up frequently. She states that she has been receiving her monthly Invega Sustenna shot will be due for the injection tomorrow. She states that she is also having visual hallucinations of "people coming at me". She denied any symptoms of manic episode including increasing goal-directed activity and increase in energy. Patient denies any suicidal or homicidal ideations intent or plan. Patient admits to using cigarettes daily. UDS was a day for amphetamines as she is taking Adipex. PAST PSYCHIATRIC HISTORY: Patient states that she has a history of schizoaffect ml disorder her last admission to the mental health unit was Feb 2020. Patient was previously on Rexulti, Effexor, BuSpar, Klonopin and Vistaril and most recently on trazodone and Invega Sustenna in the past. Patient was supposed to be getting monthly Invega Sustenna 234 mg IM monthly through [facility]. Her psychiatrist at [facility] is Dr. Christina. She denies any history of suicide attempts. PMH: Seizure disorder and asthma ALLERGIES: as per EMR CHEMICAL DEPENDENCY HISTORY: as per HPI FAMILY PSYCHIATRIC/SUBSTANCE USE HISTORY: denies SOCIAL HISTORY: Patient was born and raised in [place] and moved to [place]. She currently lives with her father is divorce has to boys. 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 She states that she did some college. She denied any legal problems at this time. MENTAL STATUS EXAM: General Appearance: Patient appears to be stated age is alert, directable and attempts to cooperate. Patient appears to have poor hygiene and grooming. Behavior: Patient is seated without any agitated behavior. Not responding to internal stimuli Speech: Patient's speech is fluent and nonpressured. Mood/Affect: Patient reports their mood is "depressed and overwhelmed", affect is congruent Suicidality/Homicidality: Patient denies having any homicidal ideation intent or plan. Denies any suicidal ideations intent or plan Perceptions: Patient denies any visual hallucinations and denies any auditory hallucinations Though content/process: Does not endorse any paranoia or delusions. Preoccupied with her voices and symptoms Memory and concentration: AOX2, does not know today's date, poor fund of knowledge and poor abstraction. Can spell "WORLD" backwards Judgment and insight: poor STRENGTHS/WEAKNESSES: strength is that patient is resilient. Weakness is that patient has poor judgment INTELLECT: Average IMPRESSIONS: Schizoaffective disorder Anxiety disorder unspecified Opioid dependence, currently on agonist therapy Nicotine dependence PLAN: -Patient is admitted under involuntary status as patient is currently on an JOSLYN until apr 2021 to [facility] for stabilization of psychiatric symptoms and safety. Patient did sign medication consent form and was placed in chart. -Medications : Due to patient's breakthrough symptoms and inability for imvega to treat patients voices, patient is agreeable to try a new anti psychotic at this time. Will start Prolixin 2.5 mg bid for psychosis and will likely need to transition patient onto CORTES prioir to d/c. start benadryl 25 mg qhs for insomnia. -Haldol IM and Ativan IM or PO PRN for agitation/aggression -Patient was informed of the risks, benefits and side effects of the medication and patient verbally consented to taking the medications. Patient signed med consent form and was placed in chart. -Internal Medicine consult to perform medical evaluation and physical. -NRT - nicotine patch -SW on board for discharge planning. Encourage patient to participate in groups to work on coping skills. 01/11/21 10:21
[2021-01-11 11:58] LABS: Chol/HDL Ratio 6.18 Ratio; HDL Cholesterol 32.5 mg/dL (40.00-60.00); LDL Cholesterol,Calculated 137.1 mg/dL (0.0-131.0); VLDL Calculation 31.4 mg/dL (5.00-40.00)
[2021-01-11] MEDS: NON FORMULARY DRUG (Buprenorphine Hcl/Naloxone Hcl [Suboxone 8 Mg-2 Mg Sl Film] 1 EACH Fil SUBLINGUAL PRN (18:38)
[2021-01-11] MEDS ORDERED: diphenhydrAMINE 25 MG CAP PO SCH (21:00)
[2021-01-11] MEDS: ACETAMINOPHEN TAB 325 MG TAB PO PRN (21:05)
[2021-01-12] MEDS: LORazepam 1 MG TAB PO PRN ×3 (02:10→20:08)
[2021-01-12] MEDS: NICOTINE 14MG/24HR PATCH TRANSDERM SCH (08:16)
[2021-01-12] MEDS: cloNIDine HCL 0.1 MG TAB PO SCH (08:17)
[2021-01-12] MEDS: LORATADINE 10 MG TAB PO SCH (08:17)
[2021-01-12] MEDS: NON FORMULARY DRUG (Buprenorphine Hcl/Naloxone Hcl [Suboxone 8 Mg-2 Mg Sl Film] 1 EACH Fil SUBLINGUAL PRN ×2 (09:04→20:23)
--- NOTE | 2021-01-12 10:05 | P.PN ---
Progress Note - Text Progress Note Date: 01/12/21 Interval History: Patient was seen lying in her bed today and was directable and agreeable to pierce andrade with tag writer in the office. She claims that she took a shower this morning and ate breakfast. She states that she is feeling "a bit better from yesterday" overall. She states that she is not feeling depressed or anxious today. She states that she is still hearing the voices that are talking to her however there are "a little bit quieter". She is not reporting any side effects from medications at this time. She states that she was finding it difficult to sleep last night and needs to take an Ativan at 2 AM. She claims that she does go to groups yesterday however not this morning. At this time patient denies any suicidal or homical ideations, intent or plan. Patient denies any visual hallucinations and denies any paranoia or delusions. Patient denies any side effects from the medications and has been compliant with meds. Mental Status Exam: General Appearance: Patient appears to be stated age is alert, directable and attempts to cooperate. Patient appears to have improving hygiene and grooming. Behavior: Patient is seated without any agitated behavior. Not responding to internal stimuli Speech: Patient's speech is fluent and nonpressured. Mood/Affect: Patient reports their mood is "a bit better", affect is congruent and constricted Suicidality/Homicidality: Patient denies having any homicidal ideation intent or plan. Denies any suicidal ideations intent or plan Perceptions: Patient denies any visual hallucinations. She admits to ongoing auditory hallucinations improving mildly Though content/process: Does not endorse any paranoia or delusions. Poverty of content. Logical Memory and concentration: AOX3, improving attention span. Judgment and insight: poor, improving mildly Assessment Schizoaffective disorder Anxiety disorder unspecified Opioid dependence, currently on agonist therapy Nicotine dependence Plan: -Patient continues to meet criteria for inpatient psychiatric admission for symptom stabilization and safety. Patient has signed adult voluntary form and medication consent and was placed in patient's chart. -Medications: Increased Prolixin to 5 mg twice a day for psychosis and likely need to transition patient onto long-acting injection prior to discharge. Increase Benadryl to 50 mg daily at bedtime for insomnia. -When necessary Ativan and Haldol for agitation/aggression. -NRT - nicotine patch -SW on board for discharge planning. Encouraged the patient to participate in milieu. PAtient is currently on an JOSLYN until Apr 2021
[2021-01-12] MEDS: ACETAMINOPHEN TAB 325 MG TAB PO PRN (16:00)
[2021-01-12] MEDS: diphenhydrAMINE 50 MG CAP PO SCH (20:06)
[2021-01-13] MEDS: ACETAMINOPHEN TAB 325 MG TAB PO PRN ×2 (00:02→12:57)
[2021-01-13 06:26] VITALS: RESP 16
[2021-01-13] MEDS: NON FORMULARY DRUG (Buprenorphine Hcl/Naloxone Hcl [Suboxone 8 Mg-2 Mg Sl Film] 1 EACH Fil SUBLINGUAL PRN ×2 (07:59→20:25)
[2021-01-13] MEDS: NICOTINE 14MG/24HR PATCH TRANSDERM SCH (07:59)
[2021-01-13] MEDS: cloNIDine HCL 0.1 MG TAB PO SCH (08:00)
[2021-01-13] MEDS: LORATADINE 10 MG TAB PO SCH (08:00)
[2021-01-13] MEDS: LORazepam 1 MG TAB PO PRN ×3 (08:02→23:58)
--- NOTE | 2021-01-13 09:54 | P.PN ---
Progress Note - Text Progress Note Date: 01/13/21 Interval History: Patient was seen lying in her bed today and was directable and agreeable to pierce andrade with resume writer in the office. She claims that she took a shower this morning and ate breakfast today and reports overall improvement. She states that she was able to sleep fairly well however still has frequent awakenings at night time. She states that she feels the medications have helped so far and has not heard voices this morning and is hopeful that they will not come back. she is agreeable to take the long acting prolixin tomorrow morning. she was focused on discharge. she claims that she has been going to groups and trying to participate as best as she can. At this time patient denies any suicidal or homical ideations, intent or plan. Patient denies any visual hallucinations and denies any paranoia or delusions. Patient denies any side effects from the medications and has been compliant with meds. Mental Status Exam: General Appearance: Patient appears to be stated age is alert, directable and attempts to cooperate. Patient appears to have improving hygiene and grooming. Behavior: Patient is seated without any agitated behavior. More cooperative today Speech: Patient's speech is fluent and nonpressured. Mood/Affect: Patient reports their mood is "better", affect is congruent Suicidality/Homicidality: Patient denies having any homicidal ideation intent or plan. Denies any suicidal ideations intent or plan Perceptions: Patient denies any visual hallucinations. She admits to ongoing auditory hallucinations improving mildly Though content/process: Does not endorse any paranoia or delusions. more goal oriented. Logical. focused on discharge Memory and concentration: AOX3, improving attention span. Judgment and insight: improving mildly Assessment Schizoaffective disorder Anxiety disorder unspecified Opioid dependence, currently on agonist therapy Nicotine dependence Plan: -Patient continues to meet criteria for inpatient psychiatric admission for symptom stabilization and safety. Patient has signed adult voluntary form and medication consent and was placed in patient's chart. -Medications: Increased Prolixin to 5 mg + 7.5 qhs twice a day for psychosis. she will receive Prolixin D 37.5 mg IM tomorrow. Benadryl to 50 mg daily at bedtime for insomnia. added melatonin 6 mg qhs for sleep -When necessary Ativan and Haldol for agitation/aggression. -NRT - nicotine patch -SW on board for discharge planning. Encouraged the patient to participate in milieu. Patient is currently on an JOSLYN until Apr 2021. liekly discharge tomorrow back home.
[2021-01-13] MEDS: diphenhydrAMINE 50 MG CAP PO SCH (20:23)
[2021-01-13] MEDS ORDERED: MELATONIN 3 MG TABLET PO SCH (21:00)
[2021-01-14 00:31] VITALS: TEMP 96.9
[2021-01-14] MEDS: NICOTINE 14MG/24HR PATCH TRANSDERM SCH (08:43)
[2021-01-14] MEDS: NON FORMULARY DRUG (Buprenorphine Hcl/Naloxone Hcl [Suboxone 8 Mg-2 Mg Sl Film] 1 EACH Fil SUBLINGUAL PRN (08:44)
[2021-01-14] MEDS: LORATADINE 10 MG TAB PO SCH (08:44)
[2021-01-14] MEDS: cloNIDine HCL 0.1 MG TAB PO SCH (08:44)
[2021-01-14] MEDS: LORazepam 1 MG TAB PO PRN (08:45)
[2021-01-14 08:47] VITALS: BP 116/64; PULSE 104
[2021-01-14] MEDS ORDERED: fluPHENAZine DECANOATE 25 MG/ML 5ML MDV IM ONE (09:00)
--- NOTE | 2021-01-14 10:03 | P.DS ---
Providers Date of admission: 01/10/21 19:44 Expected date of discharge: 01/14/21 Attending physician: Ed Desouza MD Consults: 01/10/21 19:48 Consult Physician Routine Consulting Provider: Trace Carlin Consult Reason/Comments: H&P and medical Do you want consulting provider notified?: Yes Primary care physician: Jayme Forbes MD - Discharge Diagnosis(es) (1) Schizoaffective disorder Current Visit: Yes Status: Acute Priority: High (2) Anxiety disorder Current Visit: Yes Status: Acute Priority: Medium (3) Opioid dependence on agonist therapy Current Visit: Yes Status: Acute Priority: Medium (4) Nicotine dependence Current Visit: Yes Status: Acute Priority: Low Hospital Course: Admission HPI: Admission note was completed by policy writer sales "Patient is a 50-year-old female who is and lives with her father and has 2 boys and collects Social Security. Patient presented to the hospital for psychiatric evaluation regarding patient's symptoms of hearing voices. According to ER report patient was claiming that the voices were telling her to steal things and that she recently caught over some flulike symptoms. Patient has been seen in the past in the ER several times and also admitted to the mental health unit twice in the past. Patient is also a patient of Dr. Christina her psychiatrist at [facility] and is on a monthly Invega Sustenna injection of 234 mg. Patient was admitted to the mental health unit and agreeable to speak to policy writer sales today. She appeared to be an distress when speaking with the policy writer sales and feeling overwhelmed and depressed. She states that "my voices are coming back" and states that for the past month or so her voices have been increasing in nature and more negative. She described them as "the God and the devil" which are talking to her and she states that the devil has been telling her to sin and also that the devil wants her to get caught stealing. She states that she feels the medication Invega Sustenna has not been helping her voices any longer and wanted to have her medication changed. She states that last week at the grocery store she was caught stealing and was blocked by police. She claims that she was trying to steal some close and 2 stakes. She states that she got caught twice at the grocery store and also at [employer]. She states that "I don't know why I need to steal I have money". She states that she has been having poor sleep quality and waking up frequently. She states that she has been receiving her monthly Invega Sustenna shot will be due for the injection tomorrow. She states that she is a lso having visual hallucinations of "people coming at me". She denied any symptoms of manic episode including increasing goal-directed activity and increase in energy. Patient denies any suicidal or homicidal ideations intent or plan. Patient admits to using cigarettes daily. UDS was a day for amphetamines as she is taking Adipex." Hospital course: Upon admission to the unit patient was directable and agreeable to commence treatment and signed adult voluntary form. Patient got along well with other patients on the unit and followed unit protocol. Patient was compliant with the medications and denied any side effects throughout hospital course. Patient was started on Prolixin and titrated up to dose of 5 mg daily +75 mg at nighttime for psychosis. Patient was transitioned onto Prolixin D 37.5 mg IM long acting injection which first dose was given on 01/14/2021 and next dose will be due in 2 weeks on 01/28/21. She was also started on Benadryl 50 mg daily at bedtime when necessary for insomnia and melatonin titrated up to a dose of 10 mg daily at bedtime for sleep. Patient spoke of her stressors and engaged in therapy both group and individual. Patient was also seen by medical team for history and physical exam. Throughout the course of the hospitalization patient gradually improved with regards to mood, psychosis, anxiety, sleep and returned back to their baseline level of functioning. On the day of discharge patient denied any suicidal or homicidal ideations intent or plan denied any auditory or visual hallucinations. Patient endorsed wanting to live for her health and her future. The patient denied any access to guns or weapons. Patient denied any paranoia and did not endorse any delusions. Patient does have a significant history of substance abuse and was counseled on abstaining from all substances including alcohol and marijuana. Patient elected to do outpatient substance use treatment program through [facility]. Patient was also counseled on the medications and need for regular compliance and was encouraged to follow-up with their outpatient appointment for mental health and also for primary care. Prior to discharge a family meeting will be arranged by elementary school social worker to answer any questions and ensure safety upon discharge. Mental status exam: General Appearance: Patient appears to have short hair, stated age is alert, pleasant, and cooperative. Patient is in no acute distress and has improved hygiene and grooming Behavior: Patient is calmly seated without any agitated behavior. Speech: Patient's speech is fluent and nonpressured. Mood/Affect: Patient reports their mood is "better", affect is congruent and euthymic. Suicidality/Homicidality: Patient denies having any suicidal or homicidal ideation intent or plan. Perceptions: Patient denies any auditory or visual hallucinations. Though content/process: There is no evidence of any delusional thought content and thought process is linear and goal-directed. Memory and concentration: AOX3, grossly intact for the purposes of this session. Can spell "WORLD" backwards correctly. Judgment and insight: chronically poor, however has improved with guarded prognosis Impression: Schizoaffective disorder unspecified anxiety disorder unspecified Opioid dependence, currently on agonist therapy Nicotine dependence Plan: -Continue with discharge today as patient has improved and stabilized psychiatrically and is not currently an imminent threat to herself and/or others. Patient will remain at chronically elevated risk for harm to self and/or others due to her impulsivity and substance abuse. -Continue medications: Prolixin by mouth 5 mg twice a day for 4 more days then to be discontinued. Patient was transitioned onto Prolixin D 37.5 mg IM long acting injection which first dose was given on 01/14/2021 and next dose will be due in 2 weeks on 01/28/21. Benadryl 50 mg daily at bedtime when necessary for insomnia. Melatonin 10 mg daily at bedtime for sleep. -Patient was counseled on the need for medication compliance and appropriate follow-up at mental health and also primary care for medical issues. Patient verbalized understanding and agreed. -Social work to arrange for and conduct family meeting to ensure safety upon discharge and answer any questions/concerns. Social work also to arrange for patients follow up appointments with [facility] for psychiatric care along with follow up with primary care provider. -Patient counseled on abstaining from recreational drugs and marijuana and alcohol. Was informed/educated on the adverse effects on their physical and mental health. Patient verbally agreed and understood. -Patient was instructed to return to the hospital or seek immediate medical care if their psychiatric or medical symptoms do worsen or reoccur. Allergies Allergy/AdvReac Type Severity Reaction Status Date / Time No Known Allergies Allergy Verified 01/10/21 17:54 Laboratory Results WBC 6.1 k/uL (3.8-10.6) 01/11/21 06:32 RBC 4.90 m/uL (3.80-5.40) 01/11/21 06:32 Hgb 14.4 gm/dL (11.4-16.0) 01/11/21 06:32 Hct 42.7 % (34.0-46.0) 01/11/21 06:32 MCV 87.1 fL (80.0-100.0) 01/11/21 06:32 MCH 29.3 pg (25.0-35.0) 01/11/21 06:32 MCHC 33.7 g/dL (31.0-37.0) 01/11/21 06:32 RDW 11.7 % (11.5-15.5) 01/11/21 06:32 Plt Count 288 k/uL (150-450) 01/11/21 06:32 MPV 7.0 01/11/21 06:32 Neutrophils % 48 % 01/11/21 06:32 Lymphocytes % 37 % 01/11/21 06:32 Monocytes % 7 % 01/11/21 06:32 Eosinophils % 5 % 01/11/21 06:32 Basophils % 1 % 01/11/21 06:32 Neutrophils # 2.9 k/uL (1.3-7.7) 01/11/21 06:32 Lymphocytes # 2.2 k/uL (1.0-4.8) 01/11/21 06:32 Monocytes # 0.4 k/uL (0-1.0) 01/11/21 06:32 Eosinophils # 0.3 k/uL (0-0.7) 01/11/21 06:32 Basophils # 0.1 k/uL (0-0.2) 01/11/21 06:32 Sodium 138 mmol/L (137-145) 01/11/21 06:32 Potassium 4.3 mmol/L (3.5-5.1) 01/11/21 06:32 Chloride 104 mmol/L (98-107) 01/11/21 06:32 Carbon Dioxide 27 mmol/L (22-30) 01/11/21 06:32 Anion Gap 7 mmol/L 01/11/21 06:32 BUN 14 mg/dL (7-17) 01/11/21 06:32 Creatinine 0.95 mg/dL (0.52-1.04) 01/11/21 06:32 Est GFR (CKD-EPI)AfAm 82 (>60 ml/min/1.73 sqM) 01/11/21 06:32 Est GFR (CKD-EPI)NonAf 72 (>60 ml/min/1.73 sqM) 01/11/21 06:32 Glucose 111 mg/dL (74-99) H 01/11/21 06:[address] Glu mg/dL 91 01/11/21 06:32 Hemoglobin A1c 4.8 % (4.0-6.0) 01/11/21 06:32 Calcium 9.3 mg/dL (8.4-10.2) 01/11/21 06:32 Total Bilirubin 0.4 mg/dL (0.2-1.3) 01/11/21 06:32 AST 19 U/L (14-36) 01/11/21 06:32 ALT 15 U/L (4-34) 01/11/21 06:32 Alkaline Phosphatase 61 U/L (38-126) 01/11/21 06:32 Total Protein 6.4 g/dL (6.3-8.2) 01/11/21 06:32 Albumin 3.8 g/dL (3.5-5.0) 01/11/21 06:32 Triglycerides 157.00 mg/dL (0.00-149.00) H 01/11/21 06:32 Cholesterol 201.00 mg/dL (0.00-200.00) H 01/11/21 06:32 LDL Cholesterol, Calc 137.1 mg/dL (0.0-131.0) H 01/11/21 06:32 VLDL Cholesterol, Calc 31.40 mg/dL (5.00-40.00) 01/11/21 06:32 HDL Cholesterol 32.50 mg/dL (40.00-60.00) L 01/11/21 06:32 Cholesterol/HDL Ratio 6.18 Ratio 01/11/21 06:32 TSH 1.440 mIU/L (0.465-4.680) 01/11/21 06:32 Urine Color Light Yellow 01/10/21 Unknown Urine Appearance Cloudy (Clear) H 01/10/21 Unknown Urine pH 6.5 (5.0-8.0) 01/10/21 Unknown Ur Specific [place] 1.007 (1.001-1.035) 01/10/21 Unknown Urine Protein Negative (Negative) 01/10/21 Unknown Urine Glucose (UA) Negative (Negative) 01/10/21 Unknown Urine Ketones Negative (Negative) 01/10/21 Unknown Urine Blood Negative (Negative) 01/10/21 Unknown Urine Nitrite Negative (Negative) 01/10/21 Unknown Urine Bilirubin Negative (Negative) 01/10/21 Unknown Urine Urobilinogen <2.0 mg/dL (<2.0) 01/10/21 Unknown Ur Leukocyte Esterase Negative (Negative) 01/10/21 Unknown Urine RBC 1 /hpf (0-5) 01/10/21 Unknown Urine WBC 3 /hpf (0-5) 01/10/21 Unknown Ur Squamous Epith Cells 17 /hpf (0-4) H 01/10/21 Unknown Urine Bacteria Rare /hpf (None) H 01/10/21 Unknown Urine HCG, Qual Not Detected (Not Detectd) 01/10/21 Unknown Urine Opiates Screen Not Detected (NotDetected) 01/10/21 Unknown Ur Oxycodone Screen Not Detected (NotDetected) 01/10/21 Unknown Urine Methadone Screen Not Detected (NotDetected) 01/10/21 Unknown Ur Propoxyphene Screen Not Detected (NotDetected) 01/10/21 Unknown Ur Barbiturates Screen Not Detected (NotDetected) 01/10/21 Unknown U Tricyclic Antidepress Not Detected (NotDetected) 01/10/21 Unknown Ur Phencyclidine Scrn Not Detected (NotDetected) 01/10/21 Unknown Ur Amphetamines Screen Detected (NotDetected) H 01/10/21 Unknown U Methamphetamines Scrn Not Detected (NotDetected) 01/10/21 Unknown U Benzodiazepines Scrn Not Detected (NotDetected) 01/10/21 Unknown Urine Cocaine Screen Not Detected (NotDetected) 01/10/21 Unknown U Marijuana (THC) Screen Not Detected (NotDetected) 01/10/21 Unknown Coronavirus (PCR) Not Detected (Not Detectd) 01/10/21 Unknown Vital Signs Temp 96.9 F L 01/14/21 00:30 Pulse 104 H 01/14/21 08:44 Resp 16 01/14/21 08:44 BP 116/64 01/14/21 08:44 Pulse Ox 96 01/11/21 03:00 Patient Condition at Discharge: Stable Plan - Discharge Summary Discharge Rx Participant: No New Discharge Prescriptions: New LORazepam [Ativan] 1 mg PO DAILY PRN 3 Days #3 tab PRN Reason: Anxiety Nicotine 14Mg/24Hr Patch [Habitrol] 1 patch TRANSDERM DAILY 14 Days patch fluPHENAZine decanoate [Prolixin Decanoate] 37.5 mg IM [id number] #1 each diphenhydrAMINE [Benadryl] 50 mg PO HS PRN 30 Days cap PRN Reason: sleep Melatonin 10 mg PO HS 30 Days tablet fluPHENAZine [Prolixin] 5 mg PO BID 4 Days #8 tab Acetaminophen Tab [Tylenol] 650 mg PO Q4HR PRN tab PRN Reason: Pain/Discomfort Continue Loratadine [Claritin] 10 mg PO DAILY 30 Days tab Albuterol Sulfate [Proair Hfa] 1 - 2 puff INHALATION RT-Q6H PRN PRN Reason: Shortness Of Breath Ondansetron Odt [Zofran ODT] 4 mg PO Q12HR PRN PRN Reason: Nausea Buprenorphine HCl/Naloxone HCl [Suboxone 8 mg-2 mg Sl Film] 1 film SL BID PRN PRN Reason: ADDICTION Changed cloNIDine HCL [Catapres] 0.1 mg PO DAILY 30 Days tab Discontinued Paliperidone IM [Invega Sustenna] 234 mg IM QMONTHLY #1 syr Phentermine HCl [Adipex-P] 37.5 mg PO DAILY Discharge Medication List Loratadine [Claritin] 10 mg PO DAILY 30 Days tab 02/20/20 [Rx] Albuterol Sulfate [Proair Hfa] 1 - 2 puff INHALATION RT-Q6H PRN 01/10/21 [History] Buprenorphine HCl/Naloxone HCl [Suboxone 8 mg-2 mg Sl Film] 1 film SL BID PRN 01/10/21 [History] Ondansetron Odt [Zofran ODT] 4 mg PO Q12HR PRN 01/10/21 [History] Acetaminophen Tab [Tylenol] 650 mg PO Q4HR PRN tab 01/14/21 [Rx] LORazepam [Ativan] 1 mg PO DAILY PRN 3 Days #3 tab 01/14/21 [Rx] Melatonin 10 mg PO HS 30 Days tablet 01/14/21 [Rx] Nicotine 14Mg/24Hr Patch [Habitrol] 1 patch TRANSDERM DAILY 14 Days patch 01/14/21 [Rx] cloNIDine HCL [Catapres] 0.1 mg PO DAILY 30 Days tab 01/14/21 [Rx] diphenhydrAMINE [Benadryl] 50 mg PO HS PRN 30 Days cap 01/14/21 [Rx] fluPHENAZine [Prolixin] 5 mg PO BID 4 Days #8 tab 01/14/21 [Rx] fluPHENAZine decanoate [Prolixin Decanoate] 37.5 mg IM [id number] #1 each 01/14/21 [Rx] Follow up Appointment(s)/Referral(s): [facility] [Outside] - 01/17/21 11:00 am (Mehnaz Duong) Jayme Forbes MD [Primary Care Provider] - 1-2 days Patient Instructions/Handouts: How to Stop Smoking (DC), Schizoaffective Disorder (DC) Activity/Diet/Wound Care/Special Instructions: Activity and diet as tolerated. Avoid the use of street drugs and alcohol. Take all medications as prescribed. When you are in need of refills on your medications please contact your medical provider and/or outpatient psychiatrist to have this done. Please go to scheduled outpatient appointment for aftercare treatment. If symptoms return or become worse, call the crisis line at and/or go to the nearest emergency room for evaluation. Discharge Disposition: HOME SELF-CARE
[2021-01-15] MEDS ORDERED: PALIPERIDONE IM 234 MG/1.5 ML SYG IM SCH (09:00)
== END 2021-01-14 11:39 | disposition home or self-care (01) | DRG 885 ==
LOC: EC 14:55 → 3MHU 19:44
PROVIDERS: ADMIT Psychiatry & Neurology Psychiatry; ATTEND Psychiatry & Neurology Psychiatry
DX: F25.9 Schizoaffective disorder, unspecified (principal); F11.20 Opioid dependence, uncomplicated; F41.9 Anxiety disorder, unspecified; G40.909 Epilepsy, unspecified, not intractable, without status epilepticus; G47.00 Insomnia, unspecified; G89.29 Other chronic pain; J44.9 Chronic obstructive pulmonary disease, unspecified; F17.210 Nicotine dependence, cigarettes, uncomplicated; Z90.710 Acquired absence of both cervix and uterus; Z98.890 Other specified postprocedural states; F14.11 Cocaine abuse, in remission; F15.11 Other stimulant abuse, in remission; Z79.899 Other long term (current) drug therapy; Z20.822 Contact with and (suspected) exposure to COVID-19; M54.50 Low back pain, unspecified; Z86.14 Personal history of Methicillin resistant Staphylococcus aureus infection; Z71.41 Alcohol abuse counseling and surveillance of alcoholic
CPT/HCPCS: 80053; 80061; 80306; 81001; 81025; 82075; 83036; 84443; 85025; 87635; 99284